=== PATIENT | female | born 1995 | race Caucasian/White ===

== ENCOUNTER 2017-11-23 20:55 | Emergency (ER) | payer BC, MEDICAID ==
--- NOTE | 2017-11-23 21:21 | ED Physician Documentation ---
PD HPI FEMALE - Stated complaint Stated Complaint: FEMALE /POSS PREG - Chief complaint Chief Complaint: Abd Pain - History obtained from History obtained from: Patient - History of Present Illness Timing - onset: Today (this morning) Timing - duration: Days (1) Timing - details: Gradual onset, Still present, Waxing and waning Associated symptoms: Vaginal discharge (white). No: Fever, Vaginal bleeding, Dysuria Contributing factors: (had home test positive. LMP 10/24/17.) , Sexually active. 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 denies: Dysuria, Frequency Skin: denies: Rash, Lesions Neurologic: denies: Generalized weakness, Near syncope PD PAST MEDICAL HISTORY - Past Medical History Cardiovascular: None Respiratory: None Neuro: None Endocrine/Autoimmune: None - Past Surgical History Past Surgical History: No - Present Medications Home Medications: Ambulatory Orders Medication Instructions Recorded Confirmed Cephalexin [Keflex] 500 mg PO Q6H #28 capsule 01/22/15 - Allergies Allergies/Adverse Reactions: Allergies Allergy/AdvReac Type Severity Reaction Status Date / Time No Known Drug Allergies Allergy Verified 11/23/17 21:03 - Social History Does the pt smoke?: No Smoking Status: Never smoker Does the pt drink ETOH?: No Does the pt have substance abuse?: No - Immunizations Immunizations are current?: Yes - POLST Patient has POLST: No PD ED PE NORMAL - Vitals Vital signs reviewed: Yes - General General: Alert and oriented X 3, No acute distress, Well developed/nourished - Cardiac Cardiac: RRR, No murmur - Respiratory Respiratory: Clear bilaterally - Abdomen Abdomen: Normal bowel sounds, Soft, Non distended, No organomegaly, Other (mild tenderness suprapubic area without guarding nor percussion tenderness. Slightly more tender to the right. 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 Vault with some thicker white discharge appearing like yeast. Swabs obtained. No cervicitis. No bleeding. ) - Rectal Rectal: Deferred - Back Back: No CVA TTP - Derm Derm: Normal color - Extremities Extremities: No deformity, No tenderness to palpate - Neuro Neuro: Alert and oriented X 3, No motor deficit, Normal speech Results - Vitals Vitals: Vital Signs - 24 hr 11/23/17 11/23/17 20:57 23:24 Temperature 36.5 C Heart Rate 88 88 Respiratory 16 16 Rate Blood Pressure 130/91 H 128/88 H O2 Saturation 100 100 Oxygen O2 Source Room air - Labs Labs: Microbiology 11/23/17 23:00 Wet Prep - Final Vaginal Laboratory Tests 11/23/17 11/23/17 21:15 22:38 HCG, Quant 360.09 Urine Color LT. YELLOW Urine Clarity CLEAR Urine pH 6.0 Ur Specific [place] 1.020 Urine Protein NEGATIVE Urine Glucose (UA) NEGATIVE Urine Ketones NEGATIVE Urine Occult Blood NEGATIVE Urine Nitrite NEGATIVE Urine Bilirubin NEGATIVE Urine Urobilinogen 0.2 (NORMAL) Ur Leukocyte Esterase NEGATIVE Ur Microscopic Review NOT INDICATED Urine Culture Comments NOT INDICATED Urine HCG, Qual POSITIVE - Rads (name of study) OB U/S Radiology: Prelim report reviewed (intrauterine fluid vs early IUP measuring 4.0 weeks. Right ovarian simple cyst 4.3x3.0x3.9 cm. No free fluid. ) PD MEDICAL DECISION MAKING - ED course Complexity details: reviewed results (will need to check repeat HCG in several days to see if going up or down. Apparent IUP on U/S and no appearance of ectopic. Consider early miscarriage and so would need repeat HCG. Clinically seems like vaginal yeast infection and treated for that. Culture results will be few days. Will need to have repeat HCG to follow if going up or down. ), considered differential, d/w patient - Sepsis Event Vital Signs: Vital Signs - 24 hr 11/23/17 11/23/17 20:57 23:24 Temperature 36.5 C Heart Rate 88 88 Respiratory 16 16 Rate Blood Pressure 130/91 H 128/88 H O2 Saturation 100 100 Oxygen O2 Source Room air Departure - Departure Disposition: 01 Home, Self Care Clinical Impression: Early stage of Pelvic pain affecting Qualifiers: Trimester: first trimester Qualified Code(s): O26.891 - Other specified related conditions, first trimester Condition: Stable Record reviewed to determine appropriate education?: Yes Instructions: ED Miscarriage Poss Follow-Up: [facility] [Provider Group] Comments: The ultrasound report says there appears to be an early in the uterus estimated at 4 weeks gestation. This is too early to see an actual heartbeat. We can tell if the is still doing well by repeating the hCG blood test in several days/next week. Call the gynecology office tomorrow for follow- up appointment and to arrange repeat testing. Tylenol or ibuprofen if needed for pains. Your given an antifungal tablet here as it looks like a possible yeast infection on exam. The vaginal swab culture results will return in several days and would see if we need to add any treatment based on those. Discharge Date/Time: 11/23/17 23:24
[2017-11-23 21:25] LABS: BILIRUBIN,URINE NEGATIVE (NEGATIVE); GLUCOSE, URINE (UA) NEGATIVE (NEGATIVE); KETONES,URINE (UA) NEGATIVE (NEGATIVE); LEUKOCYTE ESTERASE, URINE NEGATIVE (NEGATIVE); NITRITE,URINE NEGATIVE (NEGATIVE); OCCULT BLOOD,URINE NEGATIVE (NEGATIVE); PROTEIN,URINE NEGATIVE (NEGATIVE); UROBILINOGEN,URINE 0.2 (NORMAL) E.U./dL (NORMAL)
[2017-11-23 21:28] LABS: CLARITY,URINE CLEAR (CLEAR); HCG UR QUAL POSITIVE
[2017-11-23] MEDS ORDERED: ACETAMINOPHEN 325 MG TABLET PO STA (21:37)
[2017-11-23] MEDS ORDERED: IBUPROFEN 400 MG TABLET PO STA (21:37)
--- NOTE | 2017-11-23 22:58 | Ultrasound Report ---
Procedure Date: 11/23/2017 Accession Number: [id number] / [id number] Procedure: US - OB First Trimester CPT Code: FULL RESULT: EXAM: FIRST TRIMESTER OBSTETRIC ULTRASOUND (Less than 11 weeks) EXAM DATE: 11/23/2017 10:38 PM. CLINICAL HISTORY: Lower abd pain; early . LMP: 10/24/2017. COMPARISONS: None. TECHNIQUE: Transabdominal and transvaginal ultrasound examination with static image documentation. CLINICAL DATES: EGA 4 weeks 2 days with LYNNE 07/31/2018 based on LMP. ASSESSMENT: Gestational Sac: Small amount of fluid versus early intrauterine gestational sac at the right side of the endometrial cavity.. Mean gestational sac diameter: 3.1 mm = 4 weeks 0 days. Embryo: Not seen. Cardiac activity: Not seen.. Yolk sac: Not seen. Amniotic fluid: Not accurately assessed at this gestational age. Early placenta: Not visible at this gestational age. Other: No perigestational fluid collection demonstrated. MATERNAL STRUCTURES: Uterus: Anteverted. Septate uterus with endometrial thickness of 1.6 cm on the right and 1.7 cm on the left. Cervix: Closed. Right Ovary/Adnexa: Cyst measuring 4.3 x 3.0 x 3.9 cm. The ovary measures 4.7 x 3.6 x 4.4 cm, volume 38 cc. Left Ovary/Adnexa: Unremarkable. The ovary measures 3.3 x 1.6 x 2.3 cm, volume 6.1 cc. Free Fluid: None. Other: None. IMPRESSION: 1. Septate uterus with smaller endometrial fluid collection versus early gestational sac on the right side, measuring 4 weeks 0 days. Recommend correlation with quantitative serum beta hCG level. 2. No yolk sac or embryo seen. 3. Enlarged right ovary measuring 38 cc with dominant cyst measuring 4.3 x 3.0 x 3.9 cm. No torsion seen. RADIA
[2017-11-23] MEDS ORDERED: FLUCONAZOLE 100 MG TABLET PO STA (23:02)
[2017-11-23 23:26] VITALS: BP 128/88
== END 2017-11-23 23:24 | disposition home or self-care (01) ==
LOC: ED 20:55
DX: O26.891 Other specified pregnancy related conditions, first trimester (principal); Z3A.01 Less than 8 weeks gestation of pregnancy
CPT/HCPCS: 36415; 76801; 76817; 81003; 81025; 84702; 87210; 87491; 87591; 99283; A9270; 81001; 87086

== ENCOUNTER 2017-11-29 16:51 | Emergency (ER) | payer BC ==
[2017-11-29 17:30] LABS: BASOPHILS # (AUTO) 0.1 10^3/uL (0.0-0.1); BASOPHILS % (AUTO) 0.5 %; EOSINOPHILS # (AUTO) 0.2 10^3/uL (0.0-0.7); EOSINOPHILS % (AUTO) 1.6 %; HGB - HEMOGLOBIN 12.7 g/dL (12.0-16.0); LYMPHOCYTES # (AUTO) 2.8 10^3/uL (1.5-3.5); LYMPHOCYTES % (AUTO) 22.8 %; MEAN CORPUSCULAR HEMOGLOBIN 31.9 pg (27.0-31.0); MEAN CORPUSCULAR HGB CONC 34.8 g/dL (32.0-36.0); MEAN CORPUSCULAR VOLUME 91.8 fL (81.0-99.0); MEAN PLATELET VOLUME 6.9 fL (7.9-10.8); MONOCYTES # (AUTO) 1.2 10^3/uL (0.0-1.0); NEUTROPHILS # (AUTO) 8.1 10^3/uL (1.5-6.6); NEUTROPHILS % (AUTO) 65.1 %; PLT - PLATELET COUNT 245 10^3/uL (130-450); RED BLOOD COUNT 3.98 10^6/uL (4.20-5.40); RED CELL DISTRIBUTION WIDTH 13.6 % (12.0-15.0); WHITE BLOOD COUNT 12.4 x10^3/uL (4.8-10.8)
[2017-11-29 17:31] LABS: BILIRUBIN,URINE NEGATIVE (NEGATIVE); GLUCOSE, URINE (UA) NEGATIVE (NEGATIVE); KETONES,URINE (UA) NEGATIVE (NEGATIVE); LEUKOCYTE ESTERASE, URINE NEGATIVE (NEGATIVE); NITRITE,URINE NEGATIVE (NEGATIVE); OCCULT BLOOD,URINE NEGATIVE (NEGATIVE); PROTEIN,URINE NEGATIVE (NEGATIVE); UROBILINOGEN,URINE 0.2 (NORMAL) E.U./dL (NORMAL)
[2017-11-29 17:32] LABS: CLARITY,URINE CLEAR (CLEAR)
[2017-11-29 17:44] LABS: ALBUMIN 4.1 g/dL (3.2-5.5); ALBUMIN/GLOBULIN RATIO 1.1 (1.0-2.2); BILIRUBIN,TOTAL 0.6 mg/dL (0.2-1.0); CALCIUM 9.4 mg/dL (8.5-10.3); CREATININE 0.6 mg/dL (0.4-1.0); TOTAL PROTEIN 7.9 g/dL (6.7-8.2)
[2017-11-29] MEDS ORDERED: ACETAMINOPHEN 325 MG TABLET PO STA (18:17)
--- NOTE | 2017-11-29 18:17 | ED Physician Documentation ---
History of Present Illness - Stated complaint Stated Complaint: CRAMP/5 WKS - Chief complaint Chief Complaint: General - History obtained from History obtained from: Patient - History of Present Illness Timing: How many weeks ago (1) Pain level max: 5 Pain level now: 4 Improved by: nothing Worsened by: nothing - Additonal information Additional information: Patient is a 23-year-old female, 1 para 0 who presents to the emergency department with lower abdominal cramping for the past week. Seen here last week for same and appeared to have an early intrauterine on the right side of her uterus. She has a septated uterus. Saw Dr. Simmons yesterday in the office who informed her if she had increased cramping to go back to the emergency department. Patient has no vaginal bleeding. No discharge. Review of Systems Constitutional: denies: Fever, Chills Throat: denies: Sore throat Cardiac: denies: Chest pain / pressure Respiratory: denies: Cough GI: denies: Vomiting Skin: denies: Rash PD PAST MEDICAL HISTORY - Past Medical History Past Medical History: No Cardiovascular: None Respiratory: None Neuro: None Endocrine/Autoimmune: None - Past Surgical History Past Surgical History: Yes General: Appendectomy - Present Medications Home Medications: Ambulatory Orders Medication Instructions Recorded Confirmed Pnv95/Ferrous Fumarate/FA 11/29/17 [ Vitamin Tablet] - Allergies Allergies/Adverse Reactions: Allergies Allergy/AdvReac Type Severity Reaction Status Date / Time No Known Drug Allergies Allergy Verified 11/29/17 17:01 - Social History Does the pt smoke?: No Smoking Status: Never smoker Does the pt drink ETOH?: No Does the pt have substance abuse?: No - Immunizations Immunizations are current?: Yes - POLST Patient has POLST: No PD ED PE NORMAL - Vitals Vital signs reviewed: Yes - General General: Alert and oriented X 3, No acute distress - HEENT HEENT: Moist mucous membranes - Neck Neck: Supple, no meningeal sign - Cardiac Cardiac: RRR - Respiratory Respiratory: No respiratory distress, Clear bilaterally - Abdomen Abdomen: Soft, Non tender, Non distended - Back Back: No CVA TTP, No spinal TTP - Derm Derm: Warm and dry - Extremities Extremities: No edema - Neuro Neuro: Alert and oriented X 3 Results - Vitals Vitals: Oxygen O2 Source Room air - Labs Labs: Laboratory Tests 0611/29/17 11/29/17 17:12 17:21 17:21 WBC 12.4 H RBC 3.98 L Hgb 12.7 Hct 36.5 L MCV 91.8 MCH 31.9 H MCHC 34.8 RDW 13.6 Plt Count 245 MPV 6.9 L Neut # (Auto) 8.1 H Lymph # (Auto) 2.8 Walker # (Auto) 1.2 H Eos # (Auto) 0.2 Baso # (Auto) 0.1 Absolute Nucleated RBC 0.01 Nucleated RBC % 0.1 Sodium 132 L Potassium 3.5 Chloride 103 Carbon Dioxide 20 L Anion Gap 9.0 BUN 9 Creatinine 0.6 Estimated GFR (MDRD) 127 Glucose 85 Calcium 9.4 Total Bilirubin 0.6 AST 25 ALT 18 Alkaline Phosphatase 62 Total Protein 7.9 Albumin 4.1 Globulin 3.8 Albumin/Globulin Ratio 1.1 Lipase 22 HCG, Quant Urine Color YELLOW Urine Clarity CLEAR Urine pH 6.0 Ur Specific [place] 1.025 Urine Protein NEGATIVE Urine Glucose (UA) NEGATIVE Urine Ketones NEGATIVE Urine Occult Blood NEGATIVE Urine Nitrite NEGATIVE Urine Bilirubin NEGATIVE Urine Urobilinogen 0.2 (NORMAL) Ur Leukocyte Esterase NEGATIVE Ur Microscopic Review NOT INDICATED Urine Culture Comments NOT INDICATED 11/29/17 17:21 WBC RBC Hgb Hct MCV MCH MCHC RDW Plt Count MPV Neut # (Auto) Lymph # (Auto) Walker # (Auto) Eos # (Auto) Baso # (Auto) Absolute Nucleated RBC Nucleated RBC % Sodium Potassium Chloride Carbon Dioxide Anion Gap BUN Creatinine Estimated GFR (MDRD) Glucose Calcium Total Bilirubin AST ALT Alkaline Phosphatase Total Protein Albumin Globulin Albumin/Globulin Ratio Lipase HCG, Quant 7798.00 Urine Color Urine Clarity Urine pH Ur Specific [place] Urine Protein Urine Glucose (UA) Urine Ketones Urine Occult Blood Urine Nitrite Urine Bilirubin Urine Urobilinogen Ur Leukocyte Esterase Ur Microscopic Review Urine Culture Comments - Rads (name of study) Pelvic ultrasound Radiology: Prelim report reviewed, EMP read contemporaneously, See rad report ( Single viable intrauterine at EGA 5 weeks 1 day with LYNNE 07/31/2018 based on LMP. Note that the extremely small caliber of the gestational sac of this early makes exact measurements challenging there is been definite interval enlargement of the gestational sac. Interval appearance of a yolk sac. This is also encouraging that this represents a viable . Septated uterus. No ovarian torsion. Large right ovarian cyst. 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 No evidence of ectopic or heterotopic . Appears to have signs consistent with a viable on ultrasound. Discussed the case with Dr. Heck, OB on-call who will follow the patient up in the office. Abdomen remained soft, nontender nondistended on serial exam. Patient counseled regarding signs and symptoms for which I believe and urgent re-evaluation would be necessary. Patient with good understanding of and agreement to plan and is comfortable going home at this time This document was made in part using voice recognition software. While efforts are made to proofread this document, sound alike and grammatical errors may occur. - Sepsis Event Vital Signs: Oxygen O2 Source Room air Departure - Departure Disposition: 01 Home, Self Care Clinical Impression: Pelvic pain affecting Qualifiers: Trimester: first trimester Qualified Code(s): O26.891 - Other specified related conditions, first trimester Condition: Good Instructions: ED Preg Established Normal Sxs Follow-Up: Agnieszka Simmons, DO [Provider Admit Priv/Credential] - Comments: You do appear to have a viable and your uterus tonight. You need to follow-up closely with Dr. Simmons for further evaluation. Return if you worsen. Discharge Date/Time: 11/29/17 20:55
--- NOTE | 2017-11-29 20:11 | Ultrasound Report ---
Procedure Date: 11/29/2017 Accession Number: [id number] / [id number] Procedure: US - OB First Trimester CPT Code: FULL RESULT: EXAM: FIRST TRIMESTER OBSTETRIC ULTRASOUND (Less than 11 weeks) EXAM DATE: 11/29/2017 07:25 PM. CLINICAL HISTORY: Early , lower abdominal pain. Beta-hCG 7798. LMP: 10/24/2017. COMPARISONS: 11/23/2017. TECHNIQUE: Transabdominal and transvaginal ultrasound examination with static image documentation. CLINICAL DATES: EGA 5 weeks 1 day with LYNNE 07/31/2018 based on LMP. ASSESSMENT: Gestational Sac: Single intrauterine, right side. Mean gestational sac diameter: 6.1 mm = 4 weeks 3 days. LYNNE 08/04/2018. Previously, gestational sac diameter 3.1 mm, 4 weeks 0 days. Embryo: Not seen. Cardiac activity: Not seen. Yolk sac: 1.2 mm. Amniotic fluid: Not accurately assessed at this gestational age. Early placenta: Not visible at this gestational age. Other: No perigestational fluid collection demonstrated. MATERNAL STRUCTURES: Uterus: Anteverted. Septated. Cervix: Closed. Right Ovary/Adnexa: Two right ovarian cysts, the largest of which measures 4.1 x 3.5 x 3.4 cm. Normal ovarian blood flow. The ovary measures 5.4 x 3.5 x 4.1 cm, volume 40.5 cc. Left Ovary/Adnexa: 1.8 x 1.1 x 1.2 cm cyst. Normal ovarian blood flow. The ovary measures 3.0 x 1.7 x 2.6 cm, volume 6.9 cc. Free Fluid: Small amount of free fluid. Other: None. IMPRESSION: 1. Single viable intrauterine at EGA 5 weeks 1 day with LYNNE 07/31/2018 based on LMP. Note that the extremely small caliber of the gestational sac of this early makes exact measurements challenging. There has been definite interval enlargement of the gestational sac. 2. Interval appearance of a yolk sac. This is also encouraging that this represents a viable . 3. Septated uterus. 4. No ovarian torsion. Large right ovarian cyst. 5. Small amount of free fluid. RADIA
[2017-11-29 20:46] VITALS: BP 105/63
== END 2017-11-29 20:55 | disposition home or self-care (01) ==
LOC: ED 16:51
DX: O26.891 Other specified pregnancy related conditions, first trimester (principal); Q51.9 Congenital malformation of uterus and cervix, unspecified; N83.201 Unspecified ovarian cyst, right side; Z3A.01 Less than 8 weeks gestation of pregnancy
CPT/HCPCS: 36415; 76801; 76817; 80053; 81003; 83690; 84702; 85025; 99283; 99284; A9270; 81001; 87086

== ENCOUNTER 2017-12-27 08:00 | Outpatient (CLI) | payer BC ==
[2017-12-27 15:39] LABS: MUDS CUTOFF CONCENTRATIONS CUTOFF CONC BELOW:
[2017-12-27 16:02] LABS: AMPHETAMINE SCREEN,URINE NEGATIVE (NEGATIVE); BENZODIAZEPINES SCREEN, URINE NEGATIVE (NEGATIVE); COCAINE SCREEN URINE NEGATIVE (NEGATIVE); METHADONE SCREEN, URINE NEGATIVE (NEGATIVE); METHAMPHETAMINES SCREEN, URINE NEGATIVE (NEGATIVE); OPIATE SCREEN, URINE NEGATIVE (NEGATIVE); OXYCODONE SCREEN, URINE NEGATIVE (NEGATIVE); PROPOXYPHENE SCREEN, URINE NEGATIVE (NEGATIVE); TRICYCLIC ANTIDEPRESSANT,URINE NEGATIVE (NEGATIVE)
== END 2017-12-27 08:01 ==
LOC: LAB.R 08:00
PROVIDERS: ATTEND Obstetrics & Gynecology
DX: Z36.89 Encounter for other specified antenatal screening (principal)
CPT/HCPCS: 80306; 87491; 87591

== ENCOUNTER 2018-01-23 15:49 | Outpatient (CLI) | payer BC ==
[2018-01-23 16:11] LABS: BASOPHILS # (AUTO) 0.1 10^3/uL (0.0-0.1); BASOPHILS % (AUTO) 0.4 %; EOSINOPHILS # (AUTO) 0.2 10^3/uL (0.0-0.7); EOSINOPHILS % (AUTO) 1.7 %; HGB - HEMOGLOBIN 12.2 g/dL (12.0-16.0); LYMPHOCYTES # (AUTO) 1.9 10^3/uL (1.5-3.5); LYMPHOCYTES % (AUTO) 16.2 %; MEAN CORPUSCULAR HEMOGLOBIN 31.4 pg (27.0-31.0); MEAN CORPUSCULAR HGB CONC 35.6 g/dL (32.0-36.0); MEAN CORPUSCULAR VOLUME 88.2 fL (81.0-99.0); MEAN PLATELET VOLUME 6.6 fL (7.9-10.8); MONOCYTES # (AUTO) 1.1 10^3/uL (0.0-1.0); MONOCYTES % (AUTO) 8.9 %; NEUTROPHILS # (AUTO) 8.7 10^3/uL (1.5-6.6); NEUTROPHILS % (AUTO) 72.8 %; PLT - PLATELET COUNT 238 10^3/uL (130-450); RED BLOOD COUNT 3.89 10^6/uL (4.20-5.40); RED CELL DISTRIBUTION WIDTH 13.4 % (12.0-15.0); WHITE BLOOD COUNT 11.9 x10^3/uL (4.8-10.8)
[2018-01-23 17:55] LABS: BILIRUBIN,URINE NEGATIVE (NEGATIVE); GLUCOSE, URINE (UA) NEGATIVE (NEGATIVE); KETONES,URINE (UA) NEGATIVE (NEGATIVE); LEUKOCYTE ESTERASE, URINE NEGATIVE (NEGATIVE); NITRITE,URINE NEGATIVE (NEGATIVE); OCCULT BLOOD,URINE NEGATIVE (NEGATIVE); PROTEIN,URINE NEGATIVE (NEGATIVE); UROBILINOGEN,URINE 0.2 (NORMAL) E.U./dL (NORMAL)
[2018-01-23 18:08] LABS: CLARITY,URINE V (CLEAR)
[2018-01-23 18:09] LABS: BACTERIA,URINE Rare /HPF (None Seen); RBC,URINE 0-5 /HPF (0-5); SQUAMOUS EPITHELIAL CELL,UR RARE Squamous (<= Few)
[2018-01-24 10:02] LABS: HEPATITIS B SURFACE ANTIGEN NON-REACTIVE (NON-REACTIVE); HEPATITIS C ANTIBODY NON-REACTIVE (NON-REACTIVE)
[2018-01-24 14:09] LABS: HIV AG/AB 4TH GEN NON-REACTIVE (NON-REACTIVE)
== END 2018-01-23 15:50 | disposition home or self-care (01) ==
LOC: LAB 15:49
PROVIDERS: ATTEND Obstetrics & Gynecology
DX: Z36.89 Encounter for other specified antenatal screening (principal)
CPT/HCPCS: 36415; 81001; 81599; 84163; 85025; 86592; 86762; 86803; 86850; 86900; 86901; 87340; 87389

== ENCOUNTER 2018-02-21 11:04 | Emergency (ER) | payer MEDICAID ==
[2018-02-21] MEDS ORDERED: ACETAMINOPHEN 500 MG TABLET PO STA (11:57)
--- NOTE | 2018-02-21 11:59 | ED Physician Documentation ---
PD HPI ABD PAIN - Stated complaint Stated Complaint: R SIDE ABD PX-17 WKS - Chief complaint Chief Complaint: General - History obtained from History obtained from: Patient, Family - History of Present Illness Timing - onset: Enter time (0700), Today Timing - duration: Hours Timing - details: Abrupt onset, Still present Pain level max: 9 Pain level now: 6 Quality: Aching, Sharp, Pain Location: RUQ Radiation: Right flank Improved by: Other (nothing) Worsened by: Other (nothing) Associated symptoms: Nausea. No: Fever, Vomiting, Diarrhea, Constipation, Dysuria Similar symptoms before: Has not had sx before Recently seen: Clinic (yesterday) - Additional information Additional information: 22-year-old female who is 17 weeks woke this morning with right flank pain. She describes pain is sharp and without modifying factors. She is not able to do anything that makes this worse or better. She has been able to eat and she does have some slight nausea associated with this. She states the pain was a 9 out of 10 on its initiation it is somewhat better now 6 or 7. She has had does have undulations in the pain as well. She has not noticed any blood in her urine. She has not had these symptoms previously. She was recently seen in the clinic for her . Review of Systems Constitutional: denies: Fever Eyes: denies: Decreased vision Ears: denies: Ear pain Nose: denies: Congestion Throat: denies: Sore throat Cardiac: denies: Chest pain / pressure Respiratory: denies: Dyspnea, Cough GI: reports: Abdominal Pain, Nausea. denies: Vomiting : denies: Dysuria, Frequency Skin: denies: Rash Musculoskeletal: reports: Back pain. denies: Neck pain, Extremity pain Neurologic: denies: Generalized weakness, Focal weakness, Numbness PD PAST MEDICAL HISTORY - Past Medical History Past Medical History: No Cardiovascular: None Respiratory: None Neuro: None Endocrine/Autoimmune: None - Past Surgical History Past Surgical History: Yes General: Appendectomy - Present Medications Home Medications: Ambulatory Orders Medication Instructions Recorded Confirmed Pnv95/Ferrous Fumarate/FA 11/29/17 [ Vitamin Tablet] HYDROcod/ACETAM 5/325 [[place] 5/325] 1 - 2 ea PO Q6H PRN #15 tablet 02/21/18 - Allergies Allergies/Adverse Reactions: Allergies Allergy/AdvReac Type Severity Reaction Status Date / Time No Known Drug Allergies Allergy Verified 02/21/18 11:13 - Social History Does the pt smoke?: Yes Smoking Status: Current every day smoker Does the pt drink ETOH?: No Does the pt have substance abuse?: No - Immunizations Immunizations are current?: Yes - POLST Patient has POLST: No PD ED PE NORMAL - Vitals Vital signs reviewed: Yes (tachy ) - General General: Alert and oriented X 3, No acute distress, Well developed/nourished - HEENT HEENT: Atraumatic, PERRL, EOMI - Neck Neck: Supple, no meningeal sign - Cardiac Cardiac: No murmur, Other (tachy to 110) - Respiratory Respiratory: No respiratory distress, Clear bilaterally - Abdomen Abdomen: Soft, Non tender - Back Back: No CVA TTP, No spinal TTP - Derm Derm: Normal color, Warm and dry, No rash - Extremities Extremities: No deformity, No edema - Neuro Neuro: Alert and oriented X 3, No motor deficit, No sensory deficit, Normal speech Eye Opening: Spontaneous Motor: Obeys Commands Verbal: Oriented GCS Score: 15 - Psych Psych: Normal mood, Normal affect Results - Vitals Vitals: Vital Signs - 24 hr 02/21/18 11:07 Temperature 36.1 C L Heart Rate 124 H Respiratory 18 Rate Blood Pressure 109/61 O2 Saturation 98 Oxygen O2 Source Room air - Labs Labs: Laboratory Tests 02/21/18 12:15 Urine Color DARK YELLOW Urine Clarity CLEAR Urine pH 7.5 Ur Specific [place] 1.020 Urine Protein NEGATIVE Urine Glucose (UA) NEGATIVE Urine Ketones NEGATIVE Urine Occult Blood NEGATIVE Urine Nitrite NEGATIVE Urine Bilirubin NEGATIVE Urine Urobilinogen 0.2 (NORMAL) Ur Leukocyte Esterase NEGATIVE Ur Microscopic Review NOT INDICATED Urine Culture Comments NOT INDICATED Procedures - Bedside sono Bedside sono by EMP: With use of bedside ultrasound the right kidney is imaged it is sonographically nontender and there is evidence of mild hydronephrosis The uterus is imaged and there is a viable 17 week fetus with a heart rate of 156. PD MEDICAL DECISION MAKING - ED course Complexity details: reviewed results, re-evaluated patient, considered differential, d/w patient, d/w family ED course: 17 week 22-year-old female with right flank pain has hydronephrosis on bedside examination with the ultrasound and the kidney is sonographically nontender. There is no evidence of infection on microscopic exam of the urine. She is not tender to exam and I am not suspicious at this time of appendicitis. I discussed with the patient approaches and she is administered Tylenol with some improvement in her pain. CT scanning of the abdomen is not indicated today mostly due to the gravid state of the patient. I have discussed with the patient the expectation that the stone passed within 2 days to a week and we will provide her with some pain medication if it is needed. - Sepsis Event Vital Signs: Vital Signs - 24 hr 02/21/18 11:07 Temperature 36.1 C L Heart Rate 124 H Respiratory 18 Rate Blood Pressure 109/61 O2 Saturation 98 Oxygen O2 Source Room air Departure - Departure Disposition: 01 Home, Self Care Clinical Impression: Ureterolithiasis during in second trimester Condition: Stable Instructions: ED Stone Renal W Colic Follow-Up: Agnieszka Simmons DO [Provider Admit Priv/Credential] - Prescriptions: HYDROcod/ACETAM 5/325 [[place] 5/325] 1 - 2 ea PO Q6H PRN #15 tablet PRN Reason: Pain
[2018-02-21 13:57] LABS: BILIRUBIN,URINE NEGATIVE (NEGATIVE); GLUCOSE, URINE (UA) NEGATIVE (NEGATIVE); KETONES,URINE (UA) NEGATIVE (NEGATIVE); LEUKOCYTE ESTERASE, URINE NEGATIVE (NEGATIVE); NITRITE,URINE NEGATIVE (NEGATIVE); OCCULT BLOOD,URINE NEGATIVE (NEGATIVE); PH,URINE 7.5 PH (5.0-7.5); PROTEIN,URINE NEGATIVE (NEGATIVE); UROBILINOGEN,URINE 0.2 (NORMAL) E.U./dL (NORMAL)
[2018-02-21 14:13] LABS: CLARITY,URINE CLEAR (CLEAR)
[2018-02-21 14:51] VITALS: BP 99/58
== END 2018-02-21 14:51 | disposition home or self-care (01) ==
LOC: ED 11:04
DX: N13.2 Hydronephrosis with renal and ureteral calculous obstruction (principal); O99.89 Other specified diseases and conditions complicating pregnancy, childbirth and the puerperium; F17.200 Nicotine dependence, unspecified, uncomplicated; Z3A.17 17 weeks gestation of pregnancy
CPT/HCPCS: 81003; 99283; A9270; 81001; 87086

== ENCOUNTER 2018-02-27 07:40 | Outpatient (CLI) | payer MEDICAID ==
--- NOTE | 2018-02-27 10:32 | Ultrasound Report ---
Reason: ENCOUNTER FOR SCREENING FOR MALFORMATION Procedure Date: 02/27/2018 Accession Number: [id number] / [id number] Procedure: US - OB Detailed Eval CPT Code: FULL RESULT: EXAM: COMPLETE OBSTETRICAL ULTRASOUND EXAM DATE: 02/27/2018 09:38 AM. CLINICAL HISTORY: anatomic survey. COMPARISON: Ultrasound 11/29/2017. TECHNIQUE: Real-time sonographic evaluation of the fetus performed by the [place] [employer] [place] [employer] group leader. Multiple hvac sales representative static images were saved for review. Additional transvaginal imaging to more accurately evaluate cervical length/placental position/etc. DATING: Established EGA 18 weeks/0 days with LYNNE 07/31/2018 based on LMP of 10/24/2017. EGA 17 weeks/2 days with LYNNE 08/04/2018 based on first ultrasound on 11/29/2017. EGA 18 weeks/0 days with LYNNE 07/31/2018 based on patient's statement. EGA 17 weeks/5 days with LYNNE 08/02/2018 based on the current ultrasound. GENERAL EVALUATION Gore . Cardiac activity: 157 bpm. movement: Visualized. Presentation: Cephalic. Placenta: Anterior position. No evidence for previa. Umbilical cord: 3 vessel cord. Central placental cord origin. Amniotic fluid: Subjectively normal. MVP 12 cm = 50th percentile. BIOMETRY Bi-Parietal Diameter (BPD): 37.3 cm, 17 weeks/3 days Head Circumference (HC): 14.1 cm, 17 weeks/3 days Abdominal Circumference (AC): 12.7 cm, 18 weeks/2 days Femur Length (FL): 25.3 cm, 17 weeks/5 days Estimated Weight: 217 gm, 42nd percentile for 18 weeks. ANATOMY The intracranial structures, profile, face/nose/lips, spine, 4 chamber heart and outflow tracts, stomach, abdominal wall and cord insertion, diaphragm, kidneys, bladder, and extremities were visualized and demonstrate no abnormality. MATERNAL STRUCTURES Uterus: Unremarkable. Cervix: Long and closed. Transabdominal length 3.8 cm. Right ovary/adnexa: Unremarkable. Left ovary/adnexa: Unremarkable. Free fluid: None. IMPRESSION: 1. Gore live intrauterine with gestational age 17 weeks 5 days based on the current ultrasound. 2. Estimated weight is within expected limits for assigned dating. 3. Normal anatomic survey. No anatomic abnormalities are detected at this time. RADIA
== END 2018-02-27 07:41 | disposition home or self-care (01) ==
LOC: DI 07:40
PROVIDERS: ATTEND Obstetrics & Gynecology
DX: Z36.3 Encounter for antenatal screening for malformations (principal); Z3A.17 17 weeks gestation of pregnancy; Z36.89 Encounter for other specified antenatal screening
CPT/HCPCS: 36415; 76811; 81599

== ENCOUNTER 2018-02-27 16:41 | Outpatient (CLI) | payer MEDICAID | END 2018-02-27 16:42 | disposition home or self-care (01) | LOC: LAB 16:41 | PROVIDERS: ATTEND Obstetrics & Gynecology | DX: Z36.89 Encounter for other specified antenatal screening (principal) | CPT/HCPCS: 36415; 81599 ==

== ENCOUNTER 2018-04-27 13:34 | Outpatient (CLI) | payer MEDICAID ==
[2018-04-27 14:21] VITALS: BP 107/58
[2018-04-27 14:24] LABS: BILIRUBIN,URINE NEGATIVE (NEGATIVE); GLUCOSE, URINE (UA) NEGATIVE (NEGATIVE); KETONES,URINE (UA) NEGATIVE (NEGATIVE); LEUKOCYTE ESTERASE, URINE NEGATIVE (NEGATIVE); NITRITE,URINE NEGATIVE (NEGATIVE); OCCULT BLOOD,URINE NEGATIVE (NEGATIVE); PROTEIN,URINE NEGATIVE (NEGATIVE); UROBILINOGEN,URINE 0.2 (NORMAL) E.U./dL (NORMAL)
[2018-04-27 14:37] LABS: AMORPHOUS SEDIMENT,UR Rare /LPF; BACTERIA,URINE None Seen /HPF (None Seen); CLARITY,URINE CLEAR (CLEAR); MUCUS,URINE Few Strands; RBC,URINE 0-5 /HPF (0-5); SQUAMOUS EPITHELIAL CELL,UR RARE Squamous (<= Few)
[2018-04-27 14:45] LABS: BASOPHILS % (AUTO) 0.2 %; EOSINOPHILS # (AUTO) 0.1 10^3/uL (0.0-0.7); HGB - HEMOGLOBIN 9.1 g/dL (12.0-16.0); LYMPHOCYTES # (AUTO) 1.7 10^3/uL (1.5-3.5); LYMPHOCYTES % (AUTO) 14.5 %; MEAN CORPUSCULAR HEMOGLOBIN 32.7 pg (27.0-31.0); MEAN CORPUSCULAR HGB CONC 35.9 g/dL (32.0-36.0); MEAN PLATELET VOLUME 6.4 fL (7.9-10.8); MONOCYTES # (AUTO) 1.1 10^3/uL (0.0-1.0); NEUTROPHILS # (AUTO) 8.9 10^3/uL (1.5-6.6); NEUTROPHILS % (AUTO) 75.3 %; PLT - PLATELET COUNT 239 10^3/uL (130-450); RED BLOOD COUNT 2.78 10^6/uL (4.20-5.40); RED CELL DISTRIBUTION WIDTH 13.1 % (12.0-15.0); WHITE BLOOD COUNT 11.8 x10^3/uL (4.8-10.8)
[2018-04-27 16:17] LABS: RUPTURE OF MEMBRANES PLUS NEGATIVE (NEGATIVE)
--- NOTE | 2018-04-27 16:35 | PROVIDER PROGRESS NOTE ---
Subjective - Prog Note Date Prog Note Date: 04/27/18 Prog Note Time: 15:30 - Subjective Subjective: Diagnosis: Uterine pain after abdominal trauma; Ultrasound consistent with growth restriction; Anemia; Nutritional status uncertain 26-week 3-day gestation; Persistent nausea Cervical discharge, yellow Ms. Hopper is a 22-year-old 2 para 0010 (status post uncomplicated first trimester SAB) who is 70 pound pit bull jumped on her abdomen 72 hours ago. Since that time she notes uterine tenderness and pain at 6/10 intensity. She denies regular contractions but is uncertain about fluid leakage. She had a small leak of clear fluid earlier this morning. She has no fevers chills recent illnesses or UTI symptoms. She states that she lives in a safe environment and physical abuse is not involved. Patient has persistent nausea and poor nutritional intake both in terms of calories, protein and iron. Patient only describes 2 meager meals a day. Patient has been enrolled in the WIC program. She states that she has been taking her vitamins but there is no other iron supplementation. Patient has a history of urolithiasis in . She reports this pain is not similar to her prior kidney stone pain. She has no hematuria. Obstetric labs: Blood type O+ antibody screen negative, baseline hemoglobin 11.9, rubella immune, RPR negative, GC and Chlamydia negative. Integrated screen ordered but results not in [facility]. Patient is uncertain if she made both lab draws. Objective - Vital Signs/Intake & Output Vital Signs: Vital Signs x48h Temp Pulse Resp BP Pulse Ox 04/27/18 14:08 98.2 F 84 16 107/58 L 100 - Lab Results Fish Bones: 04/27/18 14:41 Other Labs: Lab Results x24hrs 04/27/18 04/27/18 04/27/18 Range/Units 15:30 14:41 14:05 WBC 11.8 H (4.8-10.8) x10^3/uL RBC 2.78 L (4.20-5.40) 10^6/uL Hgb 9.1 L (12.0-16.0) g/dL Hct 25.3 L (37.0-47.0) % MCV 91.0 (81.0-99.0) fL MCH 32.7 H (27.0-31.0) pg MCHC 35.9 (32.0-36.0) g/dL RDW 13.1 (12.0-15.0) % Plt Count 239 (130-450) 10^3/uL MPV 6.4 L (7.9-10.8) fL Neut # (Auto) 8.9 H (1.5-6.6) 10^3/uL Lymph # (Auto) 1.7 (1.5-3.5) 10^3/uL [place] # (Auto) 1.1 H (0.0-1.0) 10^3/uL Eos # (Auto) 0.1 (0.0-0.7) 10^3/uL Baso # (Auto) 0.0 (0.0-0.1) 10^3/uL Absolute Nucleated RBC 0.00 x10^3/uL Nucleated RBC % 0.0 /100WBC Urine Color YELLOW Urine Clarity CLEAR (CLEAR) Urine pH 7.0 (5.0-7.5) PH Ur Specific [place] 1.020 (1.002-1.030) Urine Protein NEGATIVE (NEGATIVE) mg/dL Urine Glucose (UA) NEGATIVE (NEGATIVE) mg/dL Urine Ketones NEGATIVE (NEGATIVE) mg/dL Urine Occult Blood NEGATIVE (NEGATIVE) Urine Nitrite NEGATIVE (NEGATIVE) Urine Bilirubin NEGATIVE (NEGATIVE) Urine Urobilinogen 0.2 (NORMAL) (NORMAL) E.U./dL Ur Leukocyte Esterase NEGATIVE (NEGATIVE) Urine RBC 0-5 (0-5) /HPF Urine WBC 0-3 (0-5) /HPF Ur Squamous Epith Cells RARE Squamous (<= Few) Amorphous Sediment Rare /LPF Urine Bacteria None Seen (None Seen) /HPF Urine Mucus Few Strands Urine Culture Comments NOT INDICATED Membranes Rupture NEGATIVE (NEGATIVE) Physical Exam - Physical Exam General: positive: No acute distress, Alert, Other HEENT: positive: Atraumatic, Moist mucous membranes Neck: positive: Supple w/out meningeal sx Abdomen: positive: Normal Bowel sounds, Bruising (Abrasion at the base of the umbilicus, Not thought to be a traumatic injury.) Female : positive: Normal external, Enlarged uterus (Uterus is appropriate for 26-week size approximately 24 cm. Normal resting tone. No contractions but mild lower segment tenderness. External heart monitor reactive for 26 weeks; baseline 130s moderate variability several excels meeting criteria) Back: positive: Normal (No flank tenderness) Extremities: positive: Normal ROM, No pedal edema Skin: positive: Warm and dry Neurologic: positive: Alert and Oriented X 3, Normal Sensation, Normal Speech Free text exam: Patient appears malnourished and very thin. Ultrasound consistent with growth restriction. Established EGA is 26 weeks 3 days by prior ultrasound and today composite EGA is 25 weeks 1 day. Today's ultrasound E FW 796 g or 9th percentile. Head circumference is greater than abdominal circumference 23.1/21.2. RICHMOND = 15.6. Placenta appears to be normal without evidence of abruption. Breech presentation Assessment/Plan - Assessment/Plan Assessment: Ms Hopper is a at risk with evidence of growth restriction probably secondary to malnutrition. Over the course of this she has lost 6 pounds (pre- weight 119 pounds, current weight 113 pounds) growth will require close monitoring with serial ultrasounds. With growth concerns, we must verify the integrated screen results if indeed they were performed. There is no evidence of placental abruption leakage of fluid or increased labor at this time. SROM and fibronectin negative. GC and Chl amydia culture pending. She was warned to avoid abdominal trauma. Warning sign and callback instructions reviewed for labor. Plan: 1. Repeat ultrasound in 2 weeks to confirm continued growth and then serial ultrasounds every 3-4 weeks thereafter. 2. Patient to complete food diary and will be sent to nutrition for counseling. 3. Ferric sulfate 325 twice a day given to supplement vitamins due to anemia. 4. Recommend social work evaluation during 1 of her outpatient ultrasound visits. 5. Await GC/Chlamydia results 6. Patient urged to keep her next OB appointment on 16 May.
--- NOTE | 2018-04-27 17:41 | Ultrasound Report ---
Reason: abd trauma-RICHMOND, EFW, chk plac for poss abruption Procedure Date: 04/27/2018 Accession Number: [id number] / [id number] Procedure: US - OB F/U or Repeat CPT Code: FULL RESULT: EXAM: COMPLETE OBSTETRICAL ULTRASOUND EXAM DATE: 04/27/2018 04:59 PM. CLINICAL HISTORY: . Abdominal trauma 3 days ago. Unsure of LMP. Clinical age is 26 weeks 3 days with previously established EDC of 07/31/2018 COMPARISON: 02/27/2018. TECHNIQUE: Real-time sonographic evaluation of the fetus performed by the supervisor inventory merchandising. Multiple pest control service representative static images were saved for review. DATING: Established EGA 26 weeks 3 days with LYNNE 07/31/2018 based on reported clinical date. EGA 25 weeks 1 day with LYNNE 08/09/2018 based on the current ultrasound. GENERAL EVALUATION Gore . Cardiac activity: 169 bpm. movement: Visualized. Presentation: Breech Placenta: Anterior position. Amniotic fluid: RICHMOND equals 15.6 cm. MVP 6.4 cm. BIOMETRY Bi-Parietal Diameter (BPD): 6.0 cm, 24 weeks 4 days Head Circumference (HC): 23.1 cm, 25 weeks 1 day Abdominal Circumference (AC): 21.2 cm, 25 weeks 5 days Femur Length (FL): 4.5 cm, 25 weeks 0 days Estimated Weight: 796 g, ninth percentile for age. Cervix appears closed and measures 3.1 cm in length. IMPRESSION: 1. Based on today's measurements, estimated weight 796 g which is the 9th percentile for age, using physician stated age of 26 weeks 3 days. 2. Normal amniotic fluid volume. No evidence of placental abruption. RADIA
== END 2018-04-27 18:30 | disposition home or self-care (01) ==
LOC: WFO 13:34 → FBP 13:37 → WFO 18:30
PROVIDERS: ATTEND Obstetrics & Gynecology
DX: O99.89 Other specified diseases and conditions complicating pregnancy, childbirth and the puerperium (principal); N94.89 Other specified conditions associated with female genital organs and menstrual cycle; W54.1XXA Struck by dog, initial encounter; Z3A.26 26 weeks gestation of pregnancy; O36.5920 Maternal care for other known or suspected poor fetal growth, second trimester, not applicable or unspecified; O25.12 Malnutrition in pregnancy, second trimester; O99.012 Anemia complicating pregnancy, second trimester; D64.9 Anemia, unspecified; R11.0 Nausea; Z87.442 Personal history of urinary calculi; Z79.899 Other long term (current) drug therapy
CPT/HCPCS: 76816; 81001; 82731; 84112; 85025; 87086; 87491; 87591; 99213

== ENCOUNTER 2018-05-10 00:14 | Observation (INO) | payer BC, MEDICAID ==
[2018-05-10] MEDS ORDERED: SODIUM CHLORIDE FLUSH 0.9% 10 ML SYRINGE ONE (01:13)
[2018-05-10] MEDS ORDERED: LACTATED RINGERS 1,000 ML IV ONE ×2 (01:27→01:33)
[2018-05-10 01:38] LABS: RUPTURE OF MEMBRANES PLUS NEGATIVE (NEGATIVE)
[2018-05-10 01:47] LABS: BILIRUBIN,URINE NEGATIVE (NEGATIVE); GLUCOSE, URINE (UA) NEGATIVE (NEGATIVE); KETONES,URINE (UA) NEGATIVE (NEGATIVE); LEUKOCYTE ESTERASE, URINE NEGATIVE (NEGATIVE); NITRITE,URINE NEGATIVE (NEGATIVE); OCCULT BLOOD,URINE NEGATIVE (NEGATIVE); PROTEIN,URINE NEGATIVE (NEGATIVE); UROBILINOGEN,URINE 0.2 (NORMAL) E.U./dL (NORMAL)
[2018-05-10 01:48] LABS: CLARITY,URINE CLEAR (CLEAR)
[2018-05-10] MEDS ORDERED: NIFEdipine 10 MG CAPSULE PO ONE (01:48)
[2018-05-10] MEDS ORDERED: ZOLPIDEM 5 MG TABLET PO PRN (01:58)
[2018-05-10] MEDS ORDERED: SODIUM CHLORIDE FLUSH 0.9% 10 ML SYRINGE IVP PRN (01:58)
[2018-05-10] MEDS ORDERED: ONDANSETRON 4 MG/2 ML VIAL IVP PRN (01:58)
--- NOTE | 2018-05-10 02:23 | PROVIDER PROGRESS NOTE ---
Subjective - Prog Note Date Prog Note Date: 05/10/18 Prog Note Time: 02:15 - Subjective Subjective: HPI Juan Hopper is a 22-year-old 2 para 0010 (status post uncomplicated first trimester SAB) who reports contractions beginning at 6 10 in the morning on Monday. They built steadily through the day until they became painful and alarming at 10 PM. She reports physiologic discharge but was uncertain about ruptured membranes. She believes the current contractions are stronger than her last visit on 27 April. She has no fevers chills recent illness or UTI symptoms. She has mild malaise and nausea. Her boyfriend comes accompanying her today. Patient is been previously diagnosed as nutritionally at risk and possible growth restriction. She is experienced a 7 pound weight loss since and fundal height is lagging. On 1122 estimated weight on ultrasound was 796 g per 9th percentile. The head circumference is greater than abdominal circumference 23.1/21.2. Patient states she is currently taking the iron supplement prescribed in April. Patient has a history of urolithiasis. She does not report urolithiasis pain at the current time nor does she have hematuria. Basic obstetrical labs blood type O+, antibody screen negative; baseline hemoglobin 11.9; rubella immune; RPR negative; GC and Chlamydia both initial and last visit were negative; PMH / PSH Juan denies chronic disease history or surgical history. She reports no digestive issues other than the nausea accompanying . FH Patient is uncertain about her family history but denies knowledge of congenital anomalies or genetic diseases. ALEXSANDER Martinez is a single mom who is living with her boyfriend/significant other. Until 1 week ago she lived in her boyfriend's father's home. She found the environment disruptive and had not fixed meals at home. She is moved in with her mother in [place] and finds the environment more stable. She continues to smoke 10 cigarettes a day but denies drugs and alcohol. 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 Due to the nausea in she has not been able to work. She notes financial stressors but is getting by with her boyfriend's income and help from her mother. ROS Constitutional: Patient reports 9 pound weight lasts since beginning of HEENT: Negative Lungs: Negative Cardiovascular: Negative GI: Nausea as noted above Musculoskeletal: Negative Neurologic: Occasional headache but no aura, weakness or sensory disturbance Skin: Negative Objective - Vital Signs/Intake & Output Vital Signs: Vital Signs x48h Temp Pulse BP Pulse Ox 05/10/18 00:39 98.2 F 05/10/18 00:37 94 114/66 97 - Lab Results Fish Bones: 05/10/18 02:25 05/10/18 02:25 Other Labs: Lab Results x24hrs 05/10/18 05/10/18 05/10/18 Range/Units 01:05 01:05 01:05 Urine Color YELLOW Urine Clarity CLEAR (CLEAR) Urine pH 7.0 (5.0-7.5) PH Ur Specific [place] 1.010 (1.002-1.030) Urine Protein NEGATIVE (NEGATIVE) mg/dL Urine Glucose (UA) NEGATIVE (NEGATIVE) mg/dL Urine Ketones NEGATIVE (NEGATIVE) mg/dL Urine Occult Blood NEGATIVE (NEGATIVE) Urine Nitrite NEGATIVE (NEGATIVE) Urine Bilirubin NEGATIVE (NEGATIVE) Urine Urobilinogen 0.2 (NORMAL) (NORMAL) E.U./dL Ur Leukocyte Esterase NEGATIVE (NEGATIVE) Ur Microscopic Review NOT INDICATED Urine Culture Comments NOT INDICATED Membranes Rupture NEGATIVE (NEGATIVE) Fibronectin NEGATIVE (NEGATIVE) Physical Exam - Physical Exam General: positive: Anxious, Alert, Other (Pale) HEENT: positive: Atraumatic, Moist mucous membranes Neck: positive: Supple w/out meningeal sx Cardiac: positive: Regular Rate, Regular Rhythm, Murmur Present Resipratory: positive: Clear to ausultation mukund (Faint wheeze heard on forced exhalation) Abdomen: positive: Normal Bowel sounds (Mild bladder discomfort on suprapubic pressure; no CVA tenderness or devika abdominal tenderness) Female : positive: Normal external, Dilated cervix (Cervix 1 cm 20% effaced -1 station mid position firm consistency), Enlarged uterus (Fundal height seems sma ll for 28 weeks. Normal resting tone. Mild to occasional moderate uterine contractions), Other (External monitor shows evidence of contractions every 3-4 minutes; baseline 130s 135; moderate variability; reactive; category 1) Back: positive: Normal ROM Extremities: positive: Normal ROM, No pedal edema Skin: positive: Warm and dry, Pale Neurologic: positive: Alert and Oriented X 3, Normal motor/no weakness, Normal reflexes (Reflexes equal +3, slightly brisk), Normal Sensation, Normal Speech PSYCH: positive: Anxious Assessment/Plan - Assessment/Plan Assessment: 1. labor contractions. There are subtle signs of cervical change including effacement and descent and she will station compared to my last exam in April. CBC, urinalysis, ROM plus and fibronectin pending. Will ob tain ultrasound to include cervical length. 2. Patient is nutritionally at risk with poor weight gain and in fact weight loss during this . Her last CBC in April had a hemoglobin of 9.1. Repeat CBC is pending. Will obtain photographic artist consult. Patient states that she is enrolled in [employer] but does not eat at home very often. 3. Due to nutritional concerns repeat ultrasound to document growth is ordered. Living situation may impact her ability to access and prepare nutritious meals. 4. Uncertain of patient's social situation and will take the opportunity for social services counselor to evaluate. Also hope to enroll patient in the [facility] nurses visiting program. Plan: 1. Tocolysed with fluid balance of 1000 followed by a rate of 125 an hour. Add nifedipine 20 mg now. Possible terbutaline later 2. Due to subtle cervical changes will give betamethasone. 3. Check CBC and CMP for anemia and nutritional status with serum protein. Ultrasound assessment of growth and cervical length 4. nutritional services cook evaluation 5. Referral to [facility] visiting nurse program 6. If contractions cannot be slowed she will become a candidate for transfer to tertiary facility.
[2018-05-10 02:35] LABS: BASOPHILS # (AUTO) 0.1 10^3/uL (0.0-0.1); BASOPHILS % (AUTO) 0.3 %; EOSINOPHILS # (AUTO) 0.1 10^3/uL (0.0-0.7); EOSINOPHILS % (AUTO) 0.4 %; HGB - HEMOGLOBIN 8.9 g/dL (12.0-16.0); LYMPHOCYTES # (AUTO) 1.1 10^3/uL (1.5-3.5); LYMPHOCYTES % (AUTO) 5.9 %; MEAN CORPUSCULAR HEMOGLOBIN 32.5 pg (27.0-31.0); MEAN CORPUSCULAR HGB CONC 35.3 g/dL (32.0-36.0); MEAN CORPUSCULAR VOLUME 92.1 fL (81.0-99.0); MEAN PLATELET VOLUME 6.7 fL (7.9-10.8); MONOCYTES # (AUTO) 1.4 10^3/uL (0.0-1.0); MONOCYTES % (AUTO) 7.4 %; NEUTROPHILS # (AUTO) 16.8 10^3/uL (1.5-6.6); PLT - PLATELET COUNT 236 10^3/uL (130-450); RED BLOOD COUNT 2.74 10^6/uL (4.20-5.40); RED CELL DISTRIBUTION WIDTH 12.9 % (12.0-15.0); WHITE BLOOD COUNT 19.5 x10^3/uL (4.8-10.8)
[2018-05-10] MEDS ORDERED: BETAMETHASONE 30 MG/5 ML VIAL IM ONE (02:38)
[2018-05-10 02:42] LABS: ALBUMIN 2.9 g/dL (3.2-5.5); ALBUMIN/GLOBULIN RATIO 0.9 (1.0-2.2); BILIRUBIN,TOTAL 0.2 mg/dL (0.2-1.0); CALCIUM 8.4 mg/dL (8.5-10.3); CREATININE 0.5 mg/dL (0.4-1.0); TOTAL PROTEIN 6.2 g/dL (6.7-8.2)
[2018-05-10] MEDS ORDERED: TERBUTALINE 1 MG/ML VIAL SUBQ ONE ×2 (02:46→02:49)
[2018-05-10] MEDS: LACTATED RINGERS 1,000 ML IV SCH ×2 (02:55→10:47)
[2018-05-10 03:30] LABS: MUDS CUTOFF CONCENTRATIONS CUTOFF CONC BELOW:
[2018-05-10 03:58] LABS: AMPHETAMINE SCREEN,URINE NEGATIVE (NEGATIVE); BENZODIAZEPINES SCREEN, URINE NEGATIVE (NEGATIVE); COCAINE SCREEN URINE NEGATIVE (NEGATIVE); METHADONE SCREEN, URINE NEGATIVE (NEGATIVE); METHAMPHETAMINES SCREEN, URINE NEGATIVE (NEGATIVE); OPIATE SCREEN, URINE NEGATIVE (NEGATIVE); OXYCODONE SCREEN, URINE NEGATIVE (NEGATIVE); PROPOXYPHENE SCREEN, URINE NEGATIVE (NEGATIVE); TRICYCLIC ANTIDEPRESSANT,URINE NEGATIVE (NEGATIVE)
--- NOTE | 2018-05-10 04:34 | Ultrasound Report ---
Reason: Possible growth restriction, contractions Procedure Date: 05/10/2018 Accession Number: [id number] / [id number] Procedure: US - OB F/U or Repeat CPT Code: FULL RESULT: EXAM: FOLLOW-UP OBSTETRICAL ULTRASOUND EXAM DATE: 05/10/2018 12:00 AM. CLINICAL HISTORY: Possible growth restriction, contractions. COMPARISON: 04/27/2018. TECHNIQUE: Real-time sonographic evaluation of the fetus performed by the ocean freight agent. Additional translabial imaging to more accurately evaluate cervical length/placental position/etc. Multiple service representative static images were saved for review. DATING: Established EGA 28 weeks 2 days with LYNNE 07/31/2018 based on established dates. EGA 27 weeks 0 days with LYNNE 08/09/2018 based on the prior ultrasound of 04/27/2018. EGA 27 weeks 3 days with LYNNE 08/06/2018 based on the current ultrasound. GENERAL EVALUATION Gore . Cardiac activity: 139 bpm. movement: Visualized. Presentation: Cephalic. Placenta: Anterior position. Amniotic fluid: Normal. RICHMOND 15.7 cm. MVP 5.1 cm. BIOMETRY Bi-Parietal Diameter (BPD): 6.9 cm, 27 weeks 6 days Head Circumference (HC): 25.6 cm, 27 weeks 6 days Abdominal Circumference (AC): 22.5 cm, 27 weeks 0 days Femur Length (FL): 5.0 cm, 27 weeks 0 days Estimated Weight: 1023 g, 8th percentile for 28 weeks 2 days. MATERNAL STRUCTURES Cervix: 3.6 cm on translabial images. IMPRESSION: 1. Gore live intrauterine with gestational age 28 weeks 2 days based on established dates. 2. Estimated weight is low normal range for assigned dating. 3. Normal interval growth compared to 04/27/2018. RADIA
[2018-05-10] MEDS: ACETAMINOPHEN 325 MG TABLET PO PRN ×2 (06:27→10:46)
[2018-05-10] MEDS ORDERED: POLYETHYLENE GLYCOL 3350 17 GM PACKET PO SCH (09:00)
[2018-05-10] MEDS: SODIUM CHLORIDE FLUSH 0.9% 10 ML SYRINGE IVP SCH ×2 (09:00→16:53)
[2018-05-10] MEDS: FERROUS SULFATE 325 MG TABLET PO SCH (09:14)
--- NOTE | 2018-05-10 10:44 | PROVIDER PROGRESS NOTE ---
Subjective - Prog Note Date Prog Note Date: 05/10/18 Prog Note Time: 10:30 - Subjective Subjective: Had a detailed discussion with Juan concerning her ultrasound results indicating deepening growth restriction. The growth restriction is probably nutritional as is her anemia. Her hemoglobin is actually descended despite oral iron supplementation. CMP demonstrates a hypoproteinemia as well. She states she is taking to groomie bairs a day. She denies alcohol use and her toxicology screen is negative. She is unaware of any congenital anomalies or genetic disease history in her family but is not certain. Patient's living situation recently changed and she feels better able to prepare her own meals. Discussed the need for nutritional guidance including meal planning with the patient. She should begin a 3-day food diary and follow-up even after this hospitalization with insole taper. Overall impression during this 25 minute motivational interview that she is engaged and wants to optimize her outcome. Nursing will continue to educate and culture during the day. Objective - Vital Signs/Intake & Output Vital Signs: Vital Signs x48h Temp Pulse Resp BP BP Pulse Ox 05/10/18 09:00 98.2 F 103 H 18 104/54 L 99 05/10/18 04:00 99.0 F 115 H 16 105/44 L 99 Intake & Output: Intake & Output 05/07/18 05/08/18 05/09/18 05/10/18 23:59 23:59 23:59 23:59 Output Total 525 Balance -525 - Lab Results Fish Bones: 05/10/18 02:25 05/10/18 02:25 Other Labs: Lab Results x24hrs 05/10/18 05/10/18 05/10/18 Range/Units 02:25 02:25 02:15 WBC 19.5 H (4.8-10.8) x10^3/uL RBC 2.74 L (4.20-5.40) 10^6/uL Hgb 8.9 L (12.0-16.0) g/dL Hct 25.3 L (37.0-47.0) % MCV 92.1 (81.0-99.0) fL MCH 32.5 H (27.0-31.0) pg MCHC 35.3 (32.0-36.0) g/dL RDW 12.9 (12.0-15.0) % Plt Count 236 (130-450) 10^3/uL MPV 6.7 L (7.9-10.8) fL Neut # (Auto) 16.8 H (1.5-6.6) 10^3/uL Lymph # (Auto) 1.1 L (1.5-3.5) 10^3/uL [place] # (Auto) 1.4 H (0.0-1.0) 10^3/uL Eos # (Auto) 0.1 (0.0-0.7) 10^3/uL Baso # (Auto) 0.1 (0.0-0.1) 10^3/uL Absolute Nucleated RBC 0.00 x10^3/uL Nucleated RBC % 0.0 /100WBC Sodium 134 L (135-145) mmol/L Potassium 3.3 L (3.5-5.0) mmol/L Chloride 105 (101-111) mmol/L Carbon Dioxide 21 (21-32) mmol/L Anion Gap 8.0 (6-13) BUN 6 (6-20) mg/dL Creatinine 0.5 (0.4-1.0) mg/dL Estimated GFR (MDRD) 157 (>89) Glucose 96 (70-100) mg/dL Calcium 8.4 L (8.5-10.3) mg/dL Total Bilirubin 0.2 (0.2-1.0) mg/dL AST 20 (10-42) IU/L ALT 20 (10-60) IU/L Alkaline Phosphatase 90 (42-121) IU/L Total Protein 6.2 L (6.7-8.2) g/dL Albumin 2.9 L (3.2-5.5) g/dL Globulin 3.3 (2.1-4.2) g/dL Albumin/Globulin Ratio 0.9 L (1.0-2.2) Urine Color Urine Clarity (CLEAR) Urine pH (5.0-7.5) PH Ur Specific [place] (1.002-1.030) Urine Protein (NEGATIVE) mg/dL Urine Glucose (UA) (NEGATIVE) mg/dL Urine Ketones (NEGATIVE) mg/dL Urine Occult Blood (NEGATIVE) Urine Nitrite (NEGATIVE) Urine Bilirubin (NEGATIVE) Urine Urobilinogen (NORMAL) E.U./dL Ur Leukocyte Esterase (NEGATIVE) Ur Microscopic Review Urine Culture Comments Membranes Rupture (NEGATIVE) Urine Opiates Screen NEGATIVE (NEGATIVE) Ur Oxycodone Screen NEGATIVE (NEGATIVE) Urine Methadone Screen NEGATIVE (NEGATIVE) Ur Propoxyphene Screen NEGATIVE (NEGATIVE) Ur Barbiturates Screen NEGATIVE (NEGATIVE) Ur Tricyclics Screen NEGATIVE (NEGATIVE) Ur Phencyclidine Scrn NEGATIVE (NEGATIVE) Ur Amphetamine Screen NEGATIVE (NEGATIVE) U Methamphetamines Scrn NEGATIVE (NEGATIVE) U Benzodiazepines Scrn NEGATIVE (NEGATIVE) Urine Cocaine Screen NEGATIVE (NEGATIVE) U Cannabinoids Screen NEGATIVE (NEGATIVE) Fibronectin (NEGATIVE) 05/10/18 05/10/18 05/10/18 Range/Units 01:05 01:05 01:05 WBC (4.8-10.8) x10^3/uL RBC (4.20-5.40) 10^6/uL Hgb (12.0-16.0) g/dL Hct (37.0-47.0) % MCV (81.0-99.0) fL MCH (27.0-31.0) pg MCHC (32.0-36.0) g/dL RDW (12.0-15.0) % Plt Count (130-450) 10^3/uL MPV (7.9-10.8) fL Neut # (Auto) (1.5-6.6) 10^3/uL Lymph # (Auto) (1.5-3.5) 10^3/uL [place] # (Auto) (0.0-1.0) 10^3/uL Eos # (Auto) (0.0-0.7) 10^3/uL Baso # (Auto) (0.0-0.1) 10^3/uL Absolute Nucleated RBC x10^3/uL Nucleated RBC % /100WBC Sodium (135-145) mmol/L Potassium (3.5-5.0) mmol/L Chloride (101-111) mmol/L Carbon Dioxide (21-32) mmol/L Anion Gap (6-13) BUN (6-20) mg/dL Creatinine (0.4-1.0) mg/dL Estimated GFR (MDRD) (>89) Glucose (70-100) mg/dL Calcium (8.5-10.3) mg/dL Total Bilirubin (0.2-1.0) mg/dL AST (10-42) IU/L ALT (10-60) IU/L Alkaline Phosphatase (42-121) IU/L Total Protein (6.7-8.2) g/dL Albumin (3.2-5.5) g/dL Globulin (2.1-4.2) g/dL Albumin/Globulin Ratio (1.0-2.2) Urine Color YELLOW Urine Clarity CLEAR (CLEAR) Urine pH 7.0 (5.0-7.5) PH Ur Specific [place] 1.010 (1.002-1.030) Urine Protein NEGATIVE (NEGATIVE) mg/dL Urine Glucose (UA) NEGATIVE (NEGATIVE) mg/dL Urine Ketones NEGATIVE (NEGATIVE) mg/dL Urine Occult Blood NEGATIVE (NEGATIVE) Urine Nitrite NEGATIVE (NEGATIVE) Urine Bilirubin NEGATIVE (NEGATIVE) Urine Urobilinogen 0.2 (NORMAL) (NORMAL) E.U./dL Ur Leukocyte Esterase NEGATIVE (NEGATIVE) Ur Microscopic Review NOT INDICATED Urine Culture Comments NOT INDICATED Membranes Rupture NEGATIVE (NEGATIVE) Urine Opiates Screen (NEGATIVE) Ur Oxycodone Screen (NEGATIVE) Urine Methadone Screen (NEGATIVE) Ur Propoxyphene Screen (NEGATIVE) Ur Barbiturates Screen (NEGATIVE) Ur Tricyclics Screen (NEGATIVE) Ur Phencyclidine Scrn (NEGATIVE) Ur Amphetamine Screen (NEGATIVE) U Methamphetamines Scrn (NEGATIVE) U Benzodiazepines Scrn (NEGATIVE) Urine Cocaine Screen (NEGATIVE) U Cannabinoids Screen (NEGATIVE) Fibronectin NEGATIVE (NEGATIVE) Physical Exam - Physical Exam General: positive: No acute distress, Other (Obviously underweight and pale) HEENT: positive: Moist mucous membranes Neck: positive: Supple w/out meningeal sx Abdomen: positive: Other (No tenderness noted Ultrasound result weight 1023 g, 8th percentile; RICHMOND 5.7; HC/AC reversed) Female : positive: Enlarged uterus (Uterus is lagging fundal height; currently nontender normal resting tone without contractions External monitor monitor shows no contractions with stable heart tones 135 140 with beat to beat variability noted no decelerations category 1) Extremities: positive: No pedal edema Skin: positive: Warm and dry Neurologic: positive: Alert and Oriented X 3 (Grossly neurologically intact) PSYCH: positive: Tearful (Patient is tearful during the discussion obviously worried about evolving anemia, malnutrition, and growth restriction.) Assessment/Plan - Assessment/Plan Assessment: growth restriction next Ultrasound demonstrates a lack of growth and low percentile EFW including abnormal HC/AC ratio. We will begin treating her formally as a growth retardation. Factors are nutritional and smoking. Additionally recommend genetic testing. After initial steps are taken here at would be [facility] would be general we will refer to maternal- medicine for detailed ultrasound study and further recommendations. Maternal anemia and malnutrition Intensive nutritional intervention is needed with hands on sessions with dietary. Will do IV iron infusion today since oral therapy is not working. Social intervention Patient is motivated to optimize outcome and we will afford her every advantage we have. This includes coaching and [facility] nurse in home visits. Plan: 1. IV iron transfusion 2. Software Client Architect intervention including Ensure milkshakes and calorie/protein boosting measures 3. Genetic screening in the outpatient clinic for aneuploidy 4. [place] in home health visits 5. Office visit early next week
[2018-05-10] MEDS ORDERED: IRON SUCROSE 200 MG in SODIUM CHLORIDE 0.9% 100ML 100 ML IV ONE (11:00)
[2018-05-10] MEDS: NICOTINE 14 MG PATCH TOP SCH (14:59)
[2018-05-10] MEDS ORDERED: CALCIUM CARBONATE CHEW 500 MG TABLET PO PRN (15:04)
--- NOTE | 2018-05-10 21:54 | Discharge Plan ---
Discharge Plan Disposition: 01 Home, Self Care Condition: Good Diet: Regular (Iron supplementation, high protein high iron diet) Activity Restrictions: Activity as Tolerated Shower Restrictions: No Driving Restrictions: No No Smoking: If you smoke, Please STOP! Call for help. Follow-up with: Agnieszka Simmons DO [Primary Care Provider] - Bean Heck MD [Provider Admit Priv/Credential] -
--- NOTE | 2018-05-11 06:34 | DISCHARGE SUMMARY ---
Physician: Bean Heck MD DATE OF ADMISSION: 05/10/2018 DATE OF DISCHARGE: 05/10/2018 DIAGNOSES 1. labor at 28 weeks, successfully tocolyzed. 2. Severe anemia. 3. Nutritional compromise, poor weight gain in . 4. growth restriction. 5. Maternal smoker. 6. Status post one course of betamethasone. 7. Status post ferric gluconate intravenous infusion. HISTORY: Patient is a 22-year-old , 2, para 0-0-1-0 who reported contractions beginning at 10 in the morning on Monday. They steadily progressed and she presented in labor and delivery at 10 o'clock. Contractions were confirmed as well as cervical change from her baseline exam. Current exam is 1 cm, 20% effaced, 0 station. The patient also has a history of urolithiasis, but this is quiescent. She is known to be severely anemic and also a low percentile EFW with head circumference significantly greater than abdominal. Reference my typewritten H and P. HOSPITAL COURSE: The patient presented with labor contractions that, given the change in cervical exam, warranted tocolysis. Initially, she was given fluid bolus of 1000, then nifedipine 20 mg oral. This slowed, but did not adequately remedy the contractions. She was given subcutaneous terbutaline 0.25, which effectively dampened out her contractions. On admission, fibronectin was negative as was ROM Plus. Her hemoglobin was 8.9, slightly less than the values obtained on 04/27/2018. Ultrasound revealed a significantly limited fetus at the eighth percentile. percentiles had not moved up from the initial evaluation. RICHMOND is normal. However, once again, the head circumference was significantly greater than abdomen. The patient was known to be nutritionally at risk and [place] referral made. She has recently moved from her boyfriend's father's home to her mother. Social service consult was made. Overall, even though she is unemployed, her housing situation is now stabilized and she does have support through her fiance and family. She continues to smoke cigarettes. A referral was made to the [facility] visiting nurse program. Visiting nurse made an evaluation on hospital day number two. The patient began and completed betamethasone 12 mg IM q.24h. two injections total. Nutrition services were also called. Education handouts were provided. By the morning of hospital day number two, the patient felt well enough and understood the importance of adequate calorie and protein consumption. We will arrange continuing visits by the [facility] nurse. She is encouraged to use protein powder fortified milkshakes. On the afternoon of hospital day number one, she received IV iron sucrose 200 mg. This was well tolerated. The patient was given instructions on callback signs of labor. She is going to investigate smoking cessation classes. She agreed to a Nicoderm patch 14 mg dose. This was well tolerated. She was cautioned not to smoke while on the patch. She is also encouraged to try to taper her cigarette use. DISCHARGE MEDICATIONS 1. Gummy Bear prenatals 3 a day. 2. Ferrous sulfate 325 twice daily. TD: 05/10/2018 22:01 SHIVAM
[2018-05-11 08:27] LABS: MEAN CORPUSCULAR HEMOGLOBIN 31.9 pg (27.0-31.0); MEAN CORPUSCULAR HGB CONC 34.4 g/dL (32.0-36.0); MEAN CORPUSCULAR VOLUME 92.7 fL (81.0-99.0); MEAN PLATELET VOLUME 6.7 fL (7.9-10.8); RED BLOOD COUNT 2.5 10^6/uL (4.20-5.40); RED CELL DISTRIBUTION WIDTH 13.1 % (12.0-15.0); WHITE BLOOD COUNT 17.5 x10^3/uL (4.8-10.8)
[2018-05-11 08:51] VITALS: BP 128/62
[2018-05-11] MEDS: ACETAMINOPHEN 325 MG TABLET PO PRN (08:52)
[2018-05-11] MEDS: FERROUS SULFATE 325 MG TABLET PO SCH (08:52)
[2018-05-11] MEDS ORDERED: BETAMETHASONE 30 MG/5 ML VIAL IM ONE (11:57)
[2018-05-11] MEDS: NICOTINE 14 MG PATCH TOP SCH (12:13)
== END 2018-05-11 13:00 | disposition home or self-care (01) ==
LOC: WFO 00:14 → FBP 00:33 → WFO 01:57 → FBP 01:58
PROVIDERS: ADMIT Obstetrics & Gynecology; ATTEND Obstetrics & Gynecology
DX: O60.03 Preterm labor without delivery, third trimester (principal); O26.13 Low weight gain in pregnancy, third trimester; O36.5930 Maternal care for other known or suspected poor fetal growth, third trimester, not applicable or unspecified; O25.13 Malnutrition in pregnancy, third trimester; O99.013 Anemia complicating pregnancy, third trimester; D64.9 Anemia, unspecified; O99.333 Smoking (tobacco) complicating pregnancy, third trimester; F17.210 Nicotine dependence, cigarettes, uncomplicated; Z3A.28 28 weeks gestation of pregnancy
CPT/HCPCS: 36415; 76816; 80053; 80306; 81003; 82731; 82950; 84112; 85025; 85027; 86850; 96365; 96372; 96375; 99213; A9270; G0378; J1756; J7120; 81001; 87086

== ENCOUNTER 2018-05-15 13:27 | Outpatient (CLI) | payer BC, MEDICAID ==
[2018-05-15 13:58] VITALS: BP 111/60
== END 2018-05-15 14:35 | disposition home or self-care (01) ==
LOC: WFO 13:27 → FBP 13:40 → WFO 14:35
PROVIDERS: ATTEND Obstetrics & Gynecology
DX: O36.5930 Maternal care for other known or suspected poor fetal growth, third trimester, not applicable or unspecified (principal); Z3A.29 29 weeks gestation of pregnancy
CPT/HCPCS: 59025

== ENCOUNTER 2018-05-18 08:58 | Outpatient (CLI) | payer BC, MEDICAID ==
[2018-05-18 09:58] VITALS: BP 125/63
== END 2018-05-18 09:40 | disposition home or self-care (01) ==
LOC: WFO 08:58 → FBP 08:59 → WFO 09:40
PROVIDERS: ATTEND Obstetrics & Gynecology
DX: O36.5930 Maternal care for other known or suspected poor fetal growth, third trimester, not applicable or unspecified (principal); Z3A.29 29 weeks gestation of pregnancy
CPT/HCPCS: 59025

== ENCOUNTER 2018-05-22 14:29 | Outpatient (CLI) | payer MEDICAID ==
[2018-05-22 16:07] VITALS: BP 107/62
--- NOTE | 2018-05-23 19:39 | Ultrasound Report ---
Reason: GROWTH RESTRICTION Procedure Date: 05/22/2018 Accession Number: [id number] / [id number] Procedure: US - OB F/U or Repeat CPT Code: FULL RESULT: EXAM: COMPLETE OBSTETRICAL ULTRASOUND EXAM DATE: 05/22/2018 04:11 PM. CLINICAL HISTORY: Follow-up on borderline low weight. COMPARISON: 05/10/2018. TECHNIQUE: Real-time sonographic evaluation of the fetus performed by the camp counselor. Multiple client representative static images were saved for review. DATING: Established EGA 30 weeks 0 days with LYNNE 07/31/2018 based on referring physician information. EGA 28 weeks 5 days with LYNNE 08/09/2018 based on first ultrasound. EGA 28 weeks 6 days with LYNNE 08/08/2018 based on the current ultrasound. GENERAL EVALUATION Gore . Cardiac activity: 146 bpm. movement: Visualized. Presentation: Cephalic. Placenta: Anterior position. No evidence for previa. Amniotic fluid: RICHMOND 14.1 MVP 4.7 cm. BIOMETRY Bi-Parietal Diameter (BPD): 7.2 cm, 28 weeks 6 days. Head Circumference (HC): 27 cm, 29 weeks 3 days. Abdominal Circumference (AC): 24.2 cm, 28 weeks 3 days. Femur Length (FL): 5.3 cm, 27 weeks 6 days. Estimated Weight: 1229 g, 27th percentile for 30 weeks 0 days. Cervix: Long and closed. Transabdominal length 3.8 cm. IMPRESSION: 1. Gore live intrauterine with gestational age 30 weeks 0 days based on referring physician input. 2. Estimated weight is within expected limits for assigned dating. RADIA
== END 2018-05-22 16:25 | disposition home or self-care (01) ==
LOC: DI 14:29 → FBP 15:55 → DI 16:25
PROVIDERS: ATTEND Obstetrics & Gynecology
DX: O99.89 Other specified diseases and conditions complicating pregnancy, childbirth and the puerperium (principal); R10.9 Unspecified abdominal pain; O99.013 Anemia complicating pregnancy, third trimester; Z3A.30 30 weeks gestation of pregnancy
CPT/HCPCS: 59025; 76816

== ENCOUNTER 2018-05-25 09:07 | Outpatient (CLI) | payer MEDICAID ==
[2018-05-25 09:23] VITALS: BP 109/69
--- NOTE | 2018-05-26 15:57 | PROVIDER PROGRESS NOTE ---
Subjective - Prog Note Date Prog Note Date: 05/25/18 Prog Note Time: 11:00 - Subjective Subjective: Ms. Hopper is a 22-year-old 2 para 0 aborta 1 woman at 30 weeks gestational age who is receiving twice weekly NSTs due to concerns about growth restriction. External heart tracing: Reactive category 1 baseline 140s, moderate variability accelerations present no decelerations no contractions
== END 2018-05-25 09:50 | disposition home or self-care (01) ==
LOC: WFO 09:07 → FBP 09:08 → WFO 09:50
PROVIDERS: ATTEND Obstetrics & Gynecology
DX: O36.5930 Maternal care for other known or suspected poor fetal growth, third trimester, not applicable or unspecified (principal); Z3A.30 30 weeks gestation of pregnancy
CPT/HCPCS: 59025

== ENCOUNTER 2018-05-28 15:09 | Outpatient (CLI) | payer MEDICAID ==
[2018-05-28 15:41] VITALS: BP 101/62
--- NOTE | 2018-05-28 18:05 | Ultrasound Report ---
Reason: RICHMOND OLIGOHYDDRAMNIOS Procedure Date: 05/28/2018 Accession Number: [id number] / [id number] Procedure: US - OB Limited CPT Code: FULL RESULT: EXAM: LIMITED OBSTETRICAL ULTRASOUND EXAM DATE: 05/28/2018 05:45 PM. CLINICAL HISTORY: RICHMOND OLIGOHYDRAMNIOS. COMPARISON: OB LIMITED 05/22/2018 3:17 PM. TECHNIQUE: Real-time sonographic evaluation of the fetus performed by the shovel oiler. Multiple patient intake representative static images were saved for review. Additional transvaginal imaging to more accurately evaluate cervical length/placental position/etc. DATING: Established EGA 30 weeks 6 days with LYNNE 07/31/2018. GENERAL EVALUATION Gore . Cardiac activity: 134 bpm. movement: Visualized. Presentation: Cephalic. Placenta: Anterior position. Amniotic fluid: Normal. RICHMOND 18.2 cm. MVP 6.7 cm. ANATOMY Not assessed. MATERNAL STRUCTURES Cervix is long and closed measuring 3.9 cm. IMPRESSION: 1. Gore live intrauterine with gestational age 30 weeks 6 days based on established LYNNE. 2. Amniotic fluid index is within normal limits. 3. The cervix is long and closed measuring 3.9 cm. RADIA
--- NOTE | 2018-05-31 18:30 | Labor Flowsheet ---
Labor Flowsheet Datetime Report Generated by CPN: 05/31/2018 18:30 Datetime: 05/31/2018 18:24 Pulse: 77 SpO2 (%): 99 Datetime: 05/31/2018 18:17 VITAL SIGNS NBP Sys/Teodora/Mean (mmHg): 127 : 85 : 93
== END 2018-05-28 16:10 | disposition home or self-care (01) ==
LOC: DI 15:09 → FBP 15:25 → DI 16:10
PROVIDERS: ATTEND Obstetrics & Gynecology
DX: O36.5930 Maternal care for other known or suspected poor fetal growth, third trimester, not applicable or unspecified (principal); Z3A.30 30 weeks gestation of pregnancy
CPT/HCPCS: 59025; 76815

== ENCOUNTER 2018-06-01 08:54 | Outpatient (CLI) | payer MEDICAID ==
[2018-06-01 10:04] VITALS: BP 110/65
== END 2018-06-01 10:00 | disposition home or self-care (01) ==
LOC: WFO 08:54 → FBP 08:57 → WFO 10:00
PROVIDERS: ATTEND Obstetrics & Gynecology
DX: O36.5930 Maternal care for other known or suspected poor fetal growth, third trimester, not applicable or unspecified (principal); Z3A.31 31 weeks gestation of pregnancy
CPT/HCPCS: 59025; 76815

== ENCOUNTER 2018-06-01 14:25 | Outpatient (CLI) | payer MEDICAID ==
--- NOTE | 2018-06-01 16:06 | Ultrasound Report ---
Reason: OLIGO, IUGR Procedure Date: 06/01/2018 Accession Number: [id number] / [id number] Procedure: US - OB Limited CPT Code: FULL RESULT: EXAM: LIMITED OBSTETRICAL ULTRASOUND EXAM DATE: 06/01/2018 02:41 PM. CLINICAL HISTORY: Oligohydramnios and intrauterine growth retardation. COMPARISON: OB limited 05/28/2018 5:23 PM and prior. TECHNIQUE: Real-time sonographic evaluation of the fetus performed by the senior asset manager. Multiple group sales representative static images were saved for review. Additional transvaginal imaging to more accurately evaluate cervical length/placental position/etc. DATING: Established EGA 31 weeks 3 days with LYNNE 07/31/2018. GENERAL EVALUATION Gore . Cardiac activity: 132 bpm. movement: Visualized. Presentation: Cephalic. Placenta: Anterior position. Amniotic fluid: Normal. RICHMOND 13.2cm. MVP 4.1 cm. IMPRESSION: 1. Gore live intrauterine with gestational age 31 weeks 3 days based on established LYNNE. 2. Normal amniotic fluid volume. RADIA
== END 2018-06-01 14:26 | disposition home or self-care (01) ==
LOC: DI 14:25
PROVIDERS: ATTEND Obstetrics & Gynecology
DX: O36.5930 Maternal care for other known or suspected poor fetal growth, third trimester, not applicable or unspecified (principal)
CPT/HCPCS: 76815

== ENCOUNTER 2018-06-04 15:10 | Outpatient (CLI) | payer MEDICAID ==
[2018-06-04 16:48] VITALS: BP 109/63
--- NOTE | 2018-06-04 19:58 | Ultrasound Report ---
Reason: INTRUATERINCE GROWTH RESTRICTION,THIRD TRIMESTER Procedure Date: 06/04/2018 Accession Number: [id number] / [id number] Procedure: US - OB Limited CPT Code: FULL RESULT: EXAM: LIMITED OBSTETRICAL ULTRASOUND EXAM DATE: 06/04/2018 03:39 PM. CLINICAL HISTORY: Intrauterine growth restriction, third trimester. COMPARISON: OB LIMITED 06/01/2018 2:41 PM. TECHNIQUE: Real-time sonographic evaluation of the fetus performed by the dedicated regional driver. Multiple data entry representative static images were saved for review. Additional transvaginal imaging to more accurately evaluate cervical length/placental position/etc. DATING: Established EGA 31 weeks 6 days with LYNNE 07/31/2018. GENERAL EVALUATION Gore . Cardiac activity: 137 bpm. movement: Visualized. Presentation: Transverse, head on maternal right. Placenta: Anterior position. Amniotic fluid: Normal. RICHMOND 16.6 cm. MVP 6.1 cm. MATERNAL STRUCTURES Closed, 3.9 cm long, seen best transvaginally. IMPRESSION: 1. Gore live intrauterine with gestational age 31 weeks 6 days based on established LYNNE. 2. Normal RICHMOND of 16.6 cm. RADIA
--- NOTE | 2018-06-06 01:29 | Labor Flowsheet ---
Labor Flowsheet Datetime Report Generated by CPN: 06/06/2018 01:29 Datetime: 06/05/2018 23:34 VITAL SIGNS NBP Sys/Teodora/Mean (mmHg): 123 : 84 : 93 Pulse: 91 Datetime: 06/05/2018 23:24 ASSESSMENT A Comments: Error - tracing actually Yzobella Ariel and is actually tracing under Juan Kemnow (pre vious triage that is still in Centricity) Datetime: 06/04/2018 16:54 SpO2 (%): 100
== END 2018-06-04 16:55 | disposition home or self-care (01) ==
LOC: DI 15:10 → FBP 16:23 → DI 16:55
PROVIDERS: ATTEND Obstetrics & Gynecology
DX: O36.5930 Maternal care for other known or suspected poor fetal growth, third trimester, not applicable or unspecified (principal)
CPT/HCPCS: 59025; 76815; 76817

== ENCOUNTER 2018-06-08 08:53 | Outpatient (CLI) | payer MEDICAID ==
[2018-06-08 09:24] VITALS: BP 114/74
== END 2018-06-08 09:45 | disposition home or self-care (01) ==
LOC: WFO 08:53 → FBP 08:55 → WFO 09:45
PROVIDERS: ATTEND Obstetrics & Gynecology
DX: O36.5930 Maternal care for other known or suspected poor fetal growth, third trimester, not applicable or unspecified (principal); Z3A.32 32 weeks gestation of pregnancy
CPT/HCPCS: 59025

== ENCOUNTER 2018-06-10 18:53 | Outpatient (CLI) | payer MEDICAID ==
[2018-06-10 19:16] VITALS: BP 112/67
[2018-06-10 19:44] LABS: RUPTURE OF MEMBRANES PLUS NEGATIVE (NEGATIVE)
== END 2018-06-10 20:23 | disposition home or self-care (01) ==
LOC: WFO 18:53 → EMS 18:53 → FBP 18:54 → EMS 20:23 → FBP 20:23
PROVIDERS: ATTEND Obstetrics & Gynecology
DX: O99.89 Other specified diseases and conditions complicating pregnancy, childbirth and the puerperium (principal); N89.8 Other specified noninflammatory disorders of vagina; Z3A.32 32 weeks gestation of pregnancy
CPT/HCPCS: 84112; 87797; 99213

== ENCOUNTER 2018-06-12 08:01 | Outpatient (CLI) | payer MEDICAID ==
[2018-06-12 09:21] VITALS: BP 106/59
--- NOTE | 2018-06-12 12:16 | Ultrasound Report ---
Reason: INTRUATERINCE GROWTH RESTRICTION,THIRD TRIMESTER Procedure Date: 06/12/2018 Accession Number: [id number] / [id number] Procedure: US - OB Limited CPT Code: FULL RESULT: EXAM: LIMITED OBSTETRICAL ULTRASOUND EXAM DATE: 06/12/2018 08:09 AM. CLINICAL HISTORY: Intrauterine growth restriction, third trimester. COMPARISON: OB LIMITED 06/04/2018 3:39 PM. TECHNIQUE: Real-time sonographic evaluation of the fetus performed by the weaving machine operator. Multiple residential sales representative static images were saved for review. DATING: Established EGA 33 weeks 0 days with LYNNE 07/31/2018. GENERAL EVALUATION Gore . Cardiac activity: 148 bpm. movement: Visualized. Presentation: Cephalic. Placenta: Anterior position. Amniotic fluid: Normal. RICHMOND 16.7 cm. MVP 7.0 cm. MATERNAL STRUCTURES Cervix is closed and measures 4.2 cm in length. BIOMETRY Bi-Parietal Diameter (BPD): 7.7 cm, 31 weeks 0 days Head Circumference (HC): 29.4 cm, 32 weeks 3 days Abdominal Circumference (AC): 27.9 cm, 32 weeks 0 days Femur Length (FL): 6.1 cm, 32 weeks 4 days Estimated Weight: 1835 g, 13th percentile for 33 weeks 0 days. IMPRESSION: 1. Gore live intrauterine with gestational age 33 weeks 0 days based on obstetric physician supplied established due date. 2. Estimated weight is at the 13th percentile for the established due date. FLOR
--- NOTE | 2018-06-12 19:20 | PROVIDER PROGRESS NOTE ---
Subjective - Prog Note Date Prog Note Date: 06/12/18 Prog Note Time: 10:40 - Subjective Pt reports feeling: Worse (Percentile EFW decreasing) Subjective: Juan is a 22-year-old 2 para 0 woman at 33 weeks gestation who is being monitored for growth restriction. She reports adequate movement. Patient had a office visit yesterday with me. External monitor tracing baseline 135 moderate variability excels meet contrast criteria no decelerations of significance no contractions Patient underwent repeat ultrasound growth measurements. Fetus is descended from the 27th percentile to the 13th percentile. Cervical length is 4.2 cm. Await complete report We will continue to monitor for growth limitations/restriction. Patient has ultrasound with maternal medicine on 25 June
== END 2018-06-12 10:40 | disposition home or self-care (01) ==
LOC: DI 08:01 → FBP 08:58 → DI 10:40
PROVIDERS: ATTEND Obstetrics & Gynecology
DX: O36.5930 Maternal care for other known or suspected poor fetal growth, third trimester, not applicable or unspecified (principal)
CPT/HCPCS: 59025; 76815

== ENCOUNTER 2018-06-12 15:57 | Outpatient (CLI) | payer MEDICAID ==
[2018-06-12 17:14] LABS: BILIRUBIN,URINE NEGATIVE (NEGATIVE); GLUCOSE, URINE (UA) NEGATIVE (NEGATIVE); KETONES,URINE (UA) NEGATIVE (NEGATIVE); LEUKOCYTE ESTERASE, URINE NEGATIVE (NEGATIVE); NITRITE,URINE NEGATIVE (NEGATIVE); OCCULT BLOOD,URINE NEGATIVE (NEGATIVE); PH,URINE 7.5 PH (5.0-7.5); PROTEIN,URINE NEGATIVE (NEGATIVE); UROBILINOGEN,URINE 0.2 (NORMAL) E.U./dL (NORMAL)
[2018-06-12 17:23] LABS: CLARITY,URINE CLEAR (CLEAR)
[2018-06-12 17:24] LABS: AMORPHOUS SEDIMENT,UR Few /LPF; BACTERIA,URINE None Seen /HPF (None Seen); RBC,URINE 0-5 /HPF (0-5); SQUAMOUS EPITHELIAL CELL,UR MOD Squamous (<= Few)
[2018-06-12] MEDS ORDERED: MORPHINE 10 MG/ML VIAL IM STA (18:23)
[2018-06-12] MEDS ORDERED: PROMETHAZINE 25 MG/1 ML VIAL IM STA (18:24)
[2018-06-12] MEDS ORDERED: MAGNESIUM HYDROXIDE 2,400 MG/30 ML UDC PO PRN (18:26)
[2018-06-12 18:50] VITALS: BP 112/66
--- NOTE | 2018-06-12 19:27 | PROVIDER PROGRESS NOTE ---
Subjective - Prog Note Date Prog Note Date: 06/12/18 Prog Note Time: 19:25 - Subjective Subjective: Juan is a 22-year-old 2 para 0 woman at 33 weeks with reported regular contractions and abdominal pain. She has no suspected leakage of fluid. She denies STD exposure or symptoms consistent with UTI. No symptoms consistent with PIH Uterus normal resting tone and minimal if any contractions, movement sensed no point tenderness Cervix: Open 1 cm 30% effaced -2 station mucous plug and intact, somewhat soft External monitor tracing: Baseline 135-140 moderate variability excels present category 1 strip rare mild variable decelerations irritability on toco monitor but when palpated no significant contractions Assessment Uterine irritability without true labor. Debility feeling maternal anxiety and fatigue. Patient opted for therapeutic rest with morphine 10 mg IM and Phenergan 25 mg IM. Constipation problematic and recommended milk of magnesia and prunes Patient to be seen next week in [facility] women[facility] clinic Maternal medicine consult and ultrasound on 25 June Continue biweekly NSTs and weekly RICHMOND Patient to do kick counts daily. Objective - Vital Signs/Intake & Output Vital Signs: Vital Signs x48h Temp Pulse Resp BP Pulse Ox 06/12/18 18:30 93 20 112/66 97 06/12/18 16:09 98.1 F 94 20 108/65 100 - Lab Results Other Labs: Lab Results x24hrs 06/12/18 Range/Units 16:15 Urine Color YELLOW Urine Clarity CLEAR (CLEAR) Urine pH 7.5 (5.0-7.5) PH Ur Specific [place] 1.015 (1.002-1.030) Urine Protein NEGATIVE (NEGATIVE) mg/dL Urine Glucose (UA) NEGATIVE (NEGATIVE) mg/dL Urine Ketones NEGATIVE (NEGATIVE) mg/dL Urine Occult Blood NEGATIVE (NEGATIVE) Urine Nitrite NEGATIVE (NEGATIVE) Urine Bilirubin NEGATIVE (NEGATIVE) Urine Urobilinogen 0.2 (NORMAL) (NORMAL) E.U./dL Ur Leukocyte Esterase NEGATIVE (NEGATIVE) Urine RBC 0-5 (0-5) /HPF Urine WBC 0-3 (0-5) /HPF Ur Squamous Epith Cells MOD Squamous H (<= Few) Amorphous Sediment Few /LPF Urine Bacteria None Seen (None Seen) /HPF Urine Culture Comments NOT INDICATED
== END 2018-06-12 18:46 | disposition home or self-care (01) ==
LOC: WFO 15:57 → FBP 15:58 → WFO 18:46
PROVIDERS: ATTEND Obstetrics & Gynecology
DX: O47.03 False labor before 37 completed weeks of gestation, third trimester (principal); Z3A.33 33 weeks gestation of pregnancy; O99.613 Diseases of the digestive system complicating pregnancy, third trimester; K59.00 Constipation, unspecified; O99.343 Other mental disorders complicating pregnancy, third trimester; F41.9 Anxiety disorder, unspecified; R53.83 Other fatigue; O36.5930 Maternal care for other known or suspected poor fetal growth, third trimester, not applicable or unspecified
CPT/HCPCS: 59025; 76815; 81001; 96372; 99213; A9270; 87086

== ENCOUNTER 2018-06-15 08:44 | Outpatient (CLI) | payer MEDICAID ==
[2018-06-15 09:06] VITALS: BP 123/70
== END 2018-06-15 09:30 | disposition home or self-care (01) ==
LOC: WFO 08:44 → FBP 08:46 → WFO 09:30
PROVIDERS: ATTEND Obstetrics & Gynecology
DX: O36.5930 Maternal care for other known or suspected poor fetal growth, third trimester, not applicable or unspecified (principal); Z3A.33 33 weeks gestation of pregnancy
CPT/HCPCS: 59025

== ENCOUNTER 2018-06-19 07:52 | Outpatient (CLI) | payer MEDICAID ==
--- NOTE | 2018-06-19 12:55 | Ultrasound Report ---
Reason: INTRUATERINCE GROWTH RESTRICTION,THIRD TRIMESTER Procedure Date: 06/19/2018 Accession Number: [id number] / [id number] Procedure: US - OB Limited CPT Code: FULL RESULT: EXAM: LIMITED OBSTETRICAL ULTRASOUND EXAM DATE: 06/19/2018 08:02 AM. CLINICAL HISTORY: Intrauterine GROWTH Restriction, third TRIMESTER. For follow-up COMPARISON: 06/12/2018. TECHNIQUE: Real-time sonographic evaluation of the fetus performed by the concrete products machine operator. Multiple chemical sales representative static images were saved for review. DATING: Established EGA 34 weeks 0 days with LYNNE 07/31/2018. GENERAL EVALUATION Gore . Cardiac activity: 137 bpm. movement: Present Presentation: Cephalic. Placenta: Anterior position. Amniotic fluid: Normal. RICHMOND 13.6 cm. MVP 5.5 cm. IMPRESSION: 1. RICHMOND 13.6 cm, MVP 5.5 cm
== END 2018-06-19 07:53 | disposition home or self-care (01) ==
LOC: DI 07:52
PROVIDERS: ATTEND Obstetrics & Gynecology
DX: O36.5930 Maternal care for other known or suspected poor fetal growth, third trimester, not applicable or unspecified (principal); Z3A.34 34 weeks gestation of pregnancy
CPT/HCPCS: 76815

== ENCOUNTER 2018-06-19 08:21 | Outpatient (CLI) | payer MEDICAID ==
[2018-06-19 08:34] VITALS: BP 120/76
--- NOTE | 2018-06-20 09:46 | PROVIDER PROGRESS NOTE ---
Subjective - Prog Note Date Prog Note Date: 06/19/18 Prog Note Time: 09:00 - Subjective Subjective: Juan is a 22-year-old 2 para 0 at 34 weeks 0 days gestation who is being monitored for potential growth restriction. She is a non-smoker. External monitoring strip: Reactive, category 1; baseline 135-140 with moderate variability; prerequisite 15 x 15 accelerations noted on several occasions, minor spiking deceleration to 120 on 2 occasions with immediate return and no significance; rare contractions noted This report is for NST interpretation only and no detailed physical exam conducted in labor and delivery
== END 2018-06-19 08:55 | disposition home or self-care (01) ==
LOC: WFO 08:21 → FBP 08:22 → WFO 08:55
PROVIDERS: ATTEND Obstetrics & Gynecology
DX: O36.5930 Maternal care for other known or suspected poor fetal growth, third trimester, not applicable or unspecified (principal); O99.333 Smoking (tobacco) complicating pregnancy, third trimester; Z3A.34 34 weeks gestation of pregnancy
CPT/HCPCS: 59025; 76815

== ENCOUNTER 2018-06-22 08:54 | Outpatient (CLI) | payer MEDICAID ==
[2018-06-22 09:06] VITALS: BP 116/71
== END 2018-06-22 09:55 | disposition home or self-care (01) ==
LOC: WFO 08:54 → FBP 08:56 → WFO 09:55
PROVIDERS: ATTEND Obstetrics & Gynecology
DX: O36.5930 Maternal care for other known or suspected poor fetal growth, third trimester, not applicable or unspecified (principal); Z3A.34 34 weeks gestation of pregnancy
CPT/HCPCS: 59025

== ENCOUNTER 2018-06-26 08:28 | Outpatient (CLI) | payer MEDICAID ==
--- NOTE | 2018-06-26 14:05 | Ultrasound Report ---
Reason: INTRUATERINCE GROWTH RESTRICTION,THIRD TRIMESTER Procedure Date: 06/26/2018 Accession Number: [id number] / [id number] Procedure: US - OB Limited CPT Code: FULL RESULT: EXAM: LIMITED OBSTETRICAL ULTRASOUND EXAM DATE: 06/26/2018 08:59 AM. CLINICAL HISTORY: Intrauterine growth restriction. COMPARISON: OB LIMITED 06/19/2018 8:01 AM. TECHNIQUE: Real-time sonographic evaluation of the fetus performed by the refractory worker. Multiple self pay representative static images were saved for review. DATING: Established EGA 35 weeks 0 days with LYNNE 07/31/2018. GENERAL EVALUATION Gore . Cardiac activity: 148 bpm. movement: Visualized. Presentation: Cephalic. Placenta: Anterior position. Amniotic fluid: Normal. RICHMOND 11.9 cm. MVP 4.6 cm. IMPRESSION: 1. Gore live intrauterine with gestational age 35 weeks 0 days based on 07/31/2018. 2. Normal amniotic fluid volume. RADIA
--- NOTE | 2018-06-28 08:52 | PROVIDER PROGRESS NOTE ---
Subjective - Prog Note Date Prog Note Date: 06/26/18 Prog Note Time: 12:00 - Subjective Subjective: Ms. Gonzales now is a 22-year-old woman 2 para 0010 at 35 weeks gestation who is being watch for potential SGA fetus and low fluid volume. To day's visit is for NST. External heart tracing baseline 130s moderate variability, positive accelerations, occasional uterine contraction, reactive tracing: Category 1 Patient discharged home and instructed to follow-up in office for next scheduled appointment
== END 2018-06-26 08:29 | disposition home or self-care (01) ==
LOC: DI 08:28
PROVIDERS: ATTEND Obstetrics & Gynecology
DX: O36.5930 Maternal care for other known or suspected poor fetal growth, third trimester, not applicable or unspecified (principal)
CPT/HCPCS: 76815

== ENCOUNTER 2018-06-26 08:55 | Outpatient (CLI) | payer MEDICAID ==
[2018-06-26 09:28] VITALS: BP 113/72
== END 2018-06-26 10:15 | disposition home or self-care (01) ==
LOC: WFO 08:55 → FBP 08:56 → WFO 10:15
PROVIDERS: ATTEND Obstetrics & Gynecology
DX: O41.03X0 Oligohydramnios, third trimester, not applicable or unspecified (principal); Z3A.35 35 weeks gestation of pregnancy; O36.5930 Maternal care for other known or suspected poor fetal growth, third trimester, not applicable or unspecified
CPT/HCPCS: 59025; 76815

== ENCOUNTER 2018-06-28 08:14 | Outpatient (CLI) | payer MEDICAID ==
--- NOTE | 2018-06-28 15:12 | Ultrasound Report ---
Reason: INTRAUTERINE GROWTH RESTRICTION Procedure Date: 06/28/2018 Accession Number: [id number] / [id number] Procedure: US - OB F/U or Repeat CPT Code: FULL RESULT: EXAM: FOLLOW-UP OBSTETRICAL ULTRASOUND EXAM DATE: 06/28/2018 08:31 AM. CLINICAL HISTORY: Intrauterine growth restriction. COMPARISON: OB follow-up or repeat 05/10/2018 3:21 AM. OB detailed evaluation 02/27/2018 7:53 AM. OB limited 05/22/2018 3:17 PM. TECHNIQUE: Real-time sonographic evaluation of the fetus performed by the mechanical drawing teacher. Multiple business services sales representative static images were saved for review. DATING: Established EGA 35 weeks 2 days with LYNNE 07/31/2018 based on LMP. EGA 34 weeks 0 days with LYNNE 08/09/2018 based on first ultrasound. EGA 33 weeks 2 days with LYNNE 08/14/2018 based on the current ultrasound. GENERAL EVALUATION Gore . Cardiac activity: 140 bpm. movement: Visualized. Presentation: Breech. Placenta: Anterior position. Amniotic fluid: Normal. RICHMOND 13.5 cm. MVP 6.7 cm. BIOMETRY Bi-Parietal Diameter (BPD): 8.0 cm, 32 weeks 3 days Head Circumference (HC): 30.1 cm, 33 weeks 2 days Abdominal Circumference (AC): 30.7 cm, 34 weeks 4 days Femur Length (FL): 6.3 cm, 32 weeks 5 days Estimated Weight: 2269 g, 14th percentile for 35 weeks 2 days. MATERNAL STRUCTURES Long and closed cervix, 4.2 cm. IMPRESSION: 1. Gore live intrauterine with gestational age 35 weeks 2 days based on last menstrual period. 2. Estimated weight is at the lower limits of normal but does not meet formal criteria for intrauterine growth restriction. 3. Inconsistent interval growth when reviewing studies dating back to 02/27/2018. Recommendation: Doppler interrogation of the cord arterial supply. Use of serial follow-up ultrasonography every 3-4 weeks and no more frequently than every 2 weeks in conjunction with NST and/or biophysical profiles is associated with improved outcomes. ACOG bulletins 134 and 175. RADIA The call report notification system was initiated by Dr. Wilmar Donald at 02:52 PM hrs on 06/28/2018. ADDENDUM: 06/28/18 15:21 The above findings were discussed with Dr. Leon by Dr. Wilmar Donald at 03:21 PM hrs on 06/28/2018.
== END 2018-06-28 08:15 | disposition home or self-care (01) ==
LOC: DI 08:14
PROVIDERS: ATTEND Obstetrics & Gynecology
DX: O36.5930 Maternal care for other known or suspected poor fetal growth, third trimester, not applicable or unspecified (principal)
CPT/HCPCS: 76816

== ENCOUNTER 2018-06-29 08:48 | Outpatient (CLI) | payer MEDICAID ==
[2018-06-29 09:30] VITALS: BP 114/77
== END 2018-06-29 09:25 | disposition home or self-care (01) ==
LOC: WFO 08:48 → FBP 08:50 → WFO 09:25
PROVIDERS: ATTEND Obstetrics & Gynecology
DX: O36.5930 Maternal care for other known or suspected poor fetal growth, third trimester, not applicable or unspecified (principal); Z3A.35 35 weeks gestation of pregnancy
CPT/HCPCS: 59025

== ENCOUNTER 2018-07-03 21:09 | Outpatient (CLI) | payer MEDICAID ==
[2018-07-03 22:09] LABS: BASOPHILS # (AUTO) 0.1 10^3/uL (0.0-0.1); BASOPHILS % (AUTO) 0.5 %; EOSINOPHILS # (AUTO) 0.1 10^3/uL (0.0-0.7); EOSINOPHILS % (AUTO) 0.9 %; HGB - HEMOGLOBIN 9.8 g/dL (12.0-16.0); LYMPHOCYTES # (AUTO) 1.9 10^3/uL (1.5-3.5); LYMPHOCYTES % (AUTO) 14.2 %; MEAN CORPUSCULAR HEMOGLOBIN 31.6 pg (27.0-31.0); MEAN CORPUSCULAR HGB CONC 33.7 g/dL (32.0-36.0); MEAN CORPUSCULAR VOLUME 93.7 fL (81.0-99.0); MEAN PLATELET VOLUME 6.6 fL (7.9-10.8); MONOCYTES # (AUTO) 1.1 10^3/uL (0.0-1.0); MONOCYTES % (AUTO) 8.4 %; NEUTROPHILS # (AUTO) 10.3 10^3/uL (1.5-6.6); PLT - PLATELET COUNT 277 10^3/uL (130-450); RED BLOOD COUNT 3.11 10^6/uL (4.20-5.40); RED CELL DISTRIBUTION WIDTH 13.3 % (12.0-15.0); WHITE BLOOD COUNT 13.5 x10^3/uL (4.8-10.8)
[2018-07-03 23:24] LABS: HB2 TOTAL 10.1 g/dL; HEMOGLOBIN A1C 0.38 g/dL; HEMOGLOBIN A1C % 5.6 % (4.6-6.2)
[2018-07-03 23:42] LABS: BILIRUBIN,URINE NEGATIVE (NEGATIVE); GLUCOSE, URINE (UA) NEGATIVE (NEGATIVE); KETONES,URINE (UA) NEGATIVE (NEGATIVE); LEUKOCYTE ESTERASE, URINE NEGATIVE (NEGATIVE); NITRITE,URINE NEGATIVE (NEGATIVE); OCCULT BLOOD,URINE NEGATIVE (NEGATIVE); PROTEIN,URINE NEGATIVE (NEGATIVE); UROBILINOGEN,URINE 0.2 (NORMAL) E.U./dL (NORMAL)
--- NOTE | 2018-07-03 23:45 | Ultrasound Report ---
Reason: Abdominal trauma/pain Procedure Date: 07/03/2018 Accession Number: [id number] / [id number] Procedure: US - OB Limited CPT Code: FULL RESULT: EXAM: BIOPHYSICAL PROFILE EXAM DATE: 07/03/2018 11:29 PM. CLINICAL HISTORY: Abdominal trauma/pain. COMPARISON: OB LIMITED 06/26/2018 8:41 AM. TECHNIQUE: Real-time sonographic evaluation of the fetus performed by the train system operator. Multiple rental representative static images were saved for review. DATING: Established EGA 36 weeks 0 days with LYNNE 07/31/2018. GENERAL EVALUATION Gore . Cardiac activity: 135 bpm. movement: Visualized. Presentation: Cephalic. Placenta: Anterior position. No evidence for previa or abruption. Amniotic fluid: Normal. RICHMOND 14.7 cm. MVP 6.2 cm. Cervix measures 3.0 cm transabdominally. BIOPHYSICAL PROFILE Breathing = 0 Movement = 2 Tone = 2 Amniotic Fluid = 2 Total 11/10 IMPRESSION: 1. Gore live intrauterine with gestational age 36 weeks 0 days based on established LYNNE. 2. Biophysical profile score 6 of 8. 3. Normal RICHMOND. Cervix measures 3 cm. No evidence of abruption. RADIA
[2018-07-03 23:47] LABS: CLARITY,URINE CLEAR (CLEAR)
[2018-07-04 00:08] LABS: BACTERIA,URINE None Seen /HPF (None Seen); RBC,URINE 0-5 /HPF (0-5); SQUAMOUS EPITHELIAL CELL,UR NONE SEEN (<= Few)
[2018-07-04 01:14] VITALS: BP 115/64
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
== END 2018-07-04 00:40 | disposition home or self-care (01) ==
LOC: WFO 21:09 → FBP 21:10 → WFO 07-04 00:40
PROVIDERS: ATTEND Obstetrics & Gynecology
DX: O99.89 Other specified diseases and conditions complicating pregnancy, childbirth and the puerperium (principal); R10.30 Lower abdominal pain, unspecified; V48.6XXA Car passenger injured in noncollision transport accident in traffic accident, initial encounter; O36.5930 Maternal care for other known or suspected poor fetal growth, third trimester, not applicable or unspecified; O99.013 Anemia complicating pregnancy, third trimester; D64.9 Anemia, unspecified; O99.810 Abnormal glucose complicating pregnancy; Z3A.36 36 weeks gestation of pregnancy
CPT/HCPCS: 36415; 59025; 76815; 76819; 81001; 81599; 83036; 85025; 87086; 99213

== ENCOUNTER 2018-07-06 08:00 | Outpatient (CLI) | payer BC, MEDICAID | END 2018-07-06 23:59 | disposition home or self-care (01) | LOC: LAB.R 08:00 | PROVIDERS: ATTEND Obstetrics & Gynecology | DX: Z33.1 Pregnant state, incidental (principal) | CPT/HCPCS: 87491; 87591 ==

== ENCOUNTER 2018-07-06 09:01 | Outpatient (CLI) | payer MEDICAID ==
[2018-07-06 09:24] VITALS: BP 126/68
== END 2018-07-06 09:45 | disposition home or self-care (01) ==
LOC: WFO 09:01 → FBP 09:08 → WFO 09:45
PROVIDERS: ATTEND Obstetrics & Gynecology
DX: O36.5930 Maternal care for other known or suspected poor fetal growth, third trimester, not applicable or unspecified (principal); Z3A.36 36 weeks gestation of pregnancy
CPT/HCPCS: 59025; 87491; 87591

== ENCOUNTER 2018-07-10 08:25 | Outpatient (CLI) | payer MEDICAID ==
--- NOTE | 2018-07-10 09:32 | Ultrasound Report ---
Reason: INTRUATERINCE GROWTH RESTRICTION,THIRD TRIMESTER Procedure Date: 07/10/2018 Accession Number: [id number] / [id number] Procedure: US - OB Limited CPT Code: FULL RESULT: EXAM: LIMITED OBSTETRICAL ULTRASOUND EXAM DATE: 07/10/2018 08:56 AM. CLINICAL HISTORY: Intrauterine growth restriction, third trimester. COMPARISON: OB limited 07/03/2018 10:28 PM. TECHNIQUE: Real-time sonographic evaluation of the fetus performed by the environmental health and safety leader. Multiple shared services representative static images were saved for review. DATING: Established EGA 37 weeks 0 days with LYNNE 07/31/2018. GENERAL EVALUATION Gore . Cardiac activity: 130 bpm. movement: Visualized. Presentation: Cephalic. Placenta: Anterior position. Amniotic fluid: Normal. RICHMOND 14.7 cm. MVP 4.6 cm. ANATOMY Not specifically imaged on limited exam. MATERNAL STRUCTURES Not specifically imaged on limited exam. IMPRESSION: 1. Gore live intrauterine with gestational age 37 weeks 0 days based on established dates. Estimated date of delivery 07/31/2018. 2. Normal RICHMOND. RADIA
== END 2018-07-10 08:26 | disposition home or self-care (01) ==
LOC: DI 08:25
PROVIDERS: ATTEND Obstetrics & Gynecology
DX: O36.5930 Maternal care for other known or suspected poor fetal growth, third trimester, not applicable or unspecified (principal)
CPT/HCPCS: 76815

== ENCOUNTER 2018-07-10 09:02 | Outpatient (CLI) | payer MEDICAID ==
[2018-07-10 09:35] VITALS: BP 115/73
== END 2018-07-10 09:45 | disposition home or self-care (01) ==
LOC: WFO 09:02 → FBP 09:04 → WFO 09:45
PROVIDERS: ATTEND Obstetrics & Gynecology
DX: O36.5930 Maternal care for other known or suspected poor fetal growth, third trimester, not applicable or unspecified (principal); Z3A.37 37 weeks gestation of pregnancy
CPT/HCPCS: 59025; 76815

== ENCOUNTER 2018-07-13 08:53 | Outpatient (CLI) | payer MEDICAID ==
[2018-07-13 09:21] VITALS: BP 119/73
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
[2018-07-13 11:09] LABS: BILIRUBIN,URINE NEGATIVE (NEGATIVE); GLUCOSE, URINE (UA) NEGATIVE (NEGATIVE); KETONES,URINE (UA) NEGATIVE (NEGATIVE); LEUKOCYTE ESTERASE, URINE TRACE (NEGATIVE); NITRITE,URINE NEGATIVE (NEGATIVE); OCCULT BLOOD,URINE NEGATIVE (NEGATIVE); PH,URINE 5.5 PH (5.0-7.5); PROTEIN,URINE NEGATIVE (NEGATIVE); UROBILINOGEN,URINE 0.2 (NORMAL) E.U./dL (NORMAL)
[2018-07-13 11:10] LABS: CLARITY,URINE CLEAR (CLEAR)
[2018-07-13 11:20] LABS: BACTERIA,URINE Many /HPF (None Seen); CASTS, URINE 0-2 Hyaline Casts /LPF; MUCUS,URINE Few Strands; RBC,URINE 0-5 /HPF (0-5); SQUAMOUS EPITHELIAL CELL,UR MANY Squamous (<= Few)
== END 2018-07-13 10:15 | disposition home or self-care (01) ==
LOC: WFO 08:53 → FBP 08:56 → WFO 10:15
PROVIDERS: ATTEND Obstetrics & Gynecology
DX: O36.5930 Maternal care for other known or suspected poor fetal growth, third trimester, not applicable or unspecified (principal); Z3A.37 37 weeks gestation of pregnancy
CPT/HCPCS: 59025; 81001; 87797

== ENCOUNTER 2018-07-17 16:08 | Outpatient (CLI) | payer MEDICAID ==
[2018-07-17 18:16] VITALS: BP 116/74
== END 2018-07-17 17:35 | disposition home or self-care (01) ==
LOC: WFO 16:08 → FBP 16:11 → WFO 17:35
PROVIDERS: ATTEND Obstetrics & Gynecology
DX: O36.5930 Maternal care for other known or suspected poor fetal growth, third trimester, not applicable or unspecified (principal); Z3A.37 37 weeks gestation of pregnancy
CPT/HCPCS: 59025

== ENCOUNTER 2018-07-20 08:48 | Outpatient (CLI) | payer MEDICAID ==
[2018-07-20 09:10] VITALS: BP 117/80
--- NOTE | 2018-07-20 10:06 | PROVIDER PROGRESS NOTE ---
Subjective - Prog Note Date Prog Note Date: 07/20/18 Prog Note Time: 10:04 - Subjective Pt reports feeling: No change Subjective: 22 yo with a 38w3d IUP presented to L&D for a scheduled NST due to IUGR. NST reactive and category 1. No decels. Discharge to home. Juan is scheduled for induction at 39 weeks. Objective - Vital Signs/Intake & Output Vital Signs: Vital Signs x48h Temp Pulse Resp BP Pulse Ox 07/20/18 09:08 98.6 F 99 16 117/80 99
== END 2018-07-20 09:35 | disposition home or self-care (01) ==
LOC: WFO 08:48 → FBP 08:50 → WFO 09:35
PROVIDERS: ATTEND Obstetrics & Gynecology
DX: O36.5930 Maternal care for other known or suspected poor fetal growth, third trimester, not applicable or unspecified (principal); Z3A.38 38 weeks gestation of pregnancy
CPT/HCPCS: 59025

== ENCOUNTER 2018-07-23 13:37 | Outpatient (CLI) | payer MEDICAID ==
[2018-07-23 14:31] VITALS: BP 126/76
--- NOTE | 2018-07-23 15:42 | Ultrasound Report ---
Reason: iugr - decreased movement Procedure Date: 07/23/2018 Accession Number: [id number] / [id number] Procedure: US - OB Limited CPT Code: FULL RESULT: EXAM: LIMITED OBSTETRICAL ULTRASOUND EXAM DATE: 07/23/2018 02:57 PM. CLINICAL HISTORY: Intrauterine growth restriction- decreased movement. COMPARISON: OB limited 07/10/2018 8:41 AM. TECHNIQUE: Real-time sonographic evaluation of the fetus performed by the dehorner. Multiple merchandising representative static images were saved for review. DATING: Established EGA 38 weeks 6 days with LYNNE 07/31/2018. GENERAL EVALUATION Gore . Cardiac activity: 163 bpm. movement: Visualized. Presentation: Cephalic. Placenta: Anterior position. Amniotic fluid: Normal. RICHMOND 10.3 cm. MVP 3.5 cm. IMPRESSION: 1. Gore live intrauterine with gestational age 38 weeks 6 days based on established LYNNE. 2. Normal amniotic fluid volume. RADIA The call report notification system was initiated by Dr. Wilmar Donald at 03:41 PM on 07/23/2018. ADDENDUM: 07/23/18 15:49 The above call report findings were discussed with Sae Coleman by Dr. Wilmar Donald at 03:49 PM on 07/23/2018.
== END 2018-07-23 16:00 | disposition home or self-care (01) ==
LOC: WFO 13:37 → FBP 13:38 → WFO 16:00
PROVIDERS: ATTEND Obstetrics & Gynecology
DX: O36.8190 Decreased fetal movements, unspecified trimester, not applicable or unspecified (principal); O36.5990 Maternal care for other known or suspected poor fetal growth, unspecified trimester, not applicable or unspecified; Z3A.00 Weeks of gestation of pregnancy not specified
CPT/HCPCS: 59020; 76815

== ENCOUNTER 2018-07-24 17:15 | Inpatient (IN) | payer MEDICAID ==
[2018-07-24] MEDS ORDERED: SODIUM CHLORIDE FLUSH 0.9% 10 ML SYRINGE ONE (17:32)
[2018-07-24 18:19] LABS: BASOPHILS % (AUTO) 0.3 %; EOSINOPHILS # (AUTO) 0.1 10^3/uL (0.0-0.7); EOSINOPHILS % (AUTO) 0.5 %; HGB - HEMOGLOBIN 10.4 g/dL (12.0-16.0); LYMPHOCYTES # (AUTO) 1.8 10^3/uL (1.5-3.5); LYMPHOCYTES % (AUTO) 17.1 %; MEAN CORPUSCULAR HEMOGLOBIN 32.6 pg (27.0-31.0); MEAN CORPUSCULAR VOLUME 93.3 fL (81.0-99.0); MEAN PLATELET VOLUME 6.5 fL (7.9-10.8); MONOCYTES # (AUTO) 1.2 10^3/uL (0.0-1.0); MONOCYTES % (AUTO) 11.3 %; NEUTROPHILS # (AUTO) 7.5 10^3/uL (1.5-6.6); NEUTROPHILS % (AUTO) 70.8 %; PLT - PLATELET COUNT 290 10^3/uL (130-450); RED BLOOD COUNT 3.19 10^6/uL (4.20-5.40); RED CELL DISTRIBUTION WIDTH 13.8 % (12.0-15.0); WHITE BLOOD COUNT 10.6 x10^3/uL (4.8-10.8)
[2018-07-24] MEDS ORDERED: DINOPROSTONE 10 MG SUPP VG SCH (19:58)
[2018-07-24] MEDS ORDERED: ONDANSETRON 4 MG/2 ML VIAL IVP PRN (19:58)
[2018-07-24] MEDS ORDERED: ACETAMINOPHEN 325 MG TABLET PO SCH (20:00)
--- NOTE | 2018-07-24 20:43 | HISTORY & PHYSICAL EXAMINATION ---
Chief Complaint - Chief Complaint Chief Complaint: 39 WEEK GESTATION History of Present Illness - Admitted From Admitted From:: HOME - History Obtained From Records Reviewed: YES History obtained from: PATIENT Exam Limitations: NONE - History of Present Illness HPI Comment/Other: 22 yo EDC 07/31/18, EGA 39 0/7 weeks EGA admitted for IOL. Hx of SGA, with serial US at end of negative for IUGR. US here 06/26/18 EFW 2269 gms @ 14%ile with subsequent US by MFM negative for IUGR per patient report. Patient for IOL. PNC: 1) Smoking cessation: stopped smoking 1 month ago. On Wellbutrin XL 150 mg/d since 2nd trim. per hx for this. Not on this med any other time. Would like to be weaned off Wellbutrin . 2) Anemia: Fe transfusion x 1 @ 28 weeks, on tid Fe 3) Right upper jaw/gum pain, not certain if she has a cavity, plans to see dentist 4) Abnormal 1 hr GTT 144, did not get 3 hr GTT done 5) No records of GC/CT testing at 35-37 weeks: ordered on admission. 6) MBT o POS 7) GBS Neg PMH: Anemia PSH: [place] teeth, Laparoscopic appy (unruptured), normal appy at time of surgery, states had ovarian cysts at time and not sure of cysts operated on. SHx: Quit smoking 1 month ago Meds: Wellbutrin XL 150 m p.o. qhs, Fe tid NKDA Labs: Heb B & C: NR x 2 HIV: NR Rubella POS UA: Neg MBT O POS PNAS Neg GBS Neg 1 hr GTT 144 History - Past Medical History Respiratory: reports: None Neuro: reports: None Endocrine/Autoimmune: reports: None GI: reports: None RECORDS SPECIALIST: reports: Ovarian cysts : reports: None HEENT: reports: Other (Right upper gum/tooth pain) Musculoskeletal: reports: None Derm: reports: None MRSA Hx?: No - Past Surgical History General: reports: Appendectomy - Family & Social History Living arrangement: At home Living Situation: With spouse/s.o. - Substance History Use: Uses substance without health or social issues: NONE - POLST Patient has POLST: No Meds/Allgy - Home Medications Home Medications: Ambulatory Orders Medication Instructions Recorded Confirmed Pnv95/Ferrous Fumarate/FA 11/29/17 [ Vitamin Tablet] - Allergies Allergies/Adverse Reactions: Allergies Allergy/AdvReac Type Severity Reaction Status Date / Time No Known Drug Allergies Allergy Verified 02/21/18 11:13 Review of Systems - Ears, Nose & Throat Ears, Nose & Throat: reports: Bleeding gums, Dental pain (right upper gum vs dental pain. scheduled to see dentist ) - All Other Systems All Other Systems: reports: Other (ROS otherwise negative for CV, Resp, GI/, MS, Skin, Endocrin, Psych) Exam - Vital Signs Reviewed Vital Signs: Yes - Physical Exam General Appearance: positive: No acute distress, Alert Eyes Bilateral: positive: Normal inspection, PERRL, No lid inflammation, No scleral icterus ENT: positive: ENT inspection nml, No signs of dehydration, Other (no severe gum swelling or bleeding, unabe to determine if right dental caries or not on exam, not obvious on exam.) Neck: positive: Nml inspection Respiratory: positive: Chest non-tender, No respiratory distress, Breath sounds nml Cardiovascular: positive: Regular rate & rhythm, No murmur Peripheral Pulses: positive: 2+ Abdomen: positive: Non-tender, No organomegaly, Other (Gravid Uterus. [place] 6 1/2 Lbs.) Back: positive: Nml inspection Skin: positive: Color nml, No rash, Warm Extremities: positive: Non-tender, Full ROM, Nml appearance Neurologic/Psychiatric: positive: Oriented x3, CN's nml (2-12), Motor nml ( RNST Category I with no regular uterine contractions. CX 2/50/-3/mid/mod (Reddy Score 3)) Conclusion/Plan - Problem List (1) Term Conclusion/Plan: # 39 0/7 weeks with SGA, followed with serial US due to concerns of possible IUGR, US >10%ile. Admitted for IOL # GBS Neg # Cx 2/50/-3/mid/mod with Reddy Score 3, adequt # Anemia: Type and Screen # Right upper dental/gum pain, with exam not remarkable: tylenol prn at patient request, will see dentist # Smoking Cessation: quit 1 month ago, on Wellbutrin 150 mg XL during # 1 hr GTT 144 mildly elevated # No GC/Ct testing at 35-37 weeks. Plan: # Discussed several options for Cx ripening/IOL to include oral and vaginal cytotec, low dose IV pitocin overnight, vaginal cervidil overnight. Patient opted for vaginal cervidil. # Tylenol 1,000 mg for tooth pain # Urine GC/CT today # Vistaril 25 mg prn sleep # Fentanyl 50 micrograms prn contractions pain prn at 8 cm or less Patient understands condition and all questions answered to her satisfaction. - Lab Results Fish Bones: 07/24/18 18:10
[2018-07-24] MEDS ORDERED: hydrOXYzine PAMOATE 25 MG CAPSULE PO PRN (21:00)
[2018-07-24] MEDS ORDERED: ACETAMINOPHEN 500 MG TABLET PO SCH (21:54)
[2018-07-24] MEDS: buPROPion XL 150 MG TABLET PO SCH (21:58)
[2018-07-24] MEDS: fentaNYL 100 MCG/2 ML VIAL IVP PRN (23:25)
[2018-07-25] MEDS: fentaNYL 100 MCG/2 ML VIAL IVP PRN ×5 (00:39→07:07)
[2018-07-25] MEDS ORDERED: fentaNYL 100 MCG/2 ML VIAL ONE (00:39)
[2018-07-25] MEDS: LACTATED RINGERS 1,000 ML IV SCH ×3 (00:42→15:36)
[2018-07-25] MEDS ORDERED: LACTATED RINGERS 1,000 ML IV ONE (00:42)
[2018-07-25] MEDS: SODIUM CHLORIDE FLUSH 0.9% 10 ML SYRINGE IVP PRN ×2 (01:41→13:38)
--- NOTE | 2018-07-25 01:55 | PROVIDER PROGRESS NOTE ---
Subjective - Prog Note Date Prog Note Date: 07/25/18 (TALCER STAFF) Prog Note Time: 01:48 - Subjective Subjective: Called at home by RN due to patient having increased pain requesting fentanyl and also possibility of feeling digits/hand at time of cerivical exam with membranes still intact, head still palpable per RN. Cervidil removed by RN at 0033 hours. I arrived at hospital at 0120 hours and found patient sitting up in bed breathing through contractions in mod distress due to pain, having received 150 micrograms of fentanyl for pain up to this point, 100 micrograms last hour, Category I tracing with contractions q3 min. Cx exam by me at 0125 hours /- 1/VTX/BOWI with NO hand or other abnormal presentation. Patient offered IV fentanyl vs nitrous oxide and epidural and requests fentanyl. An additional 100 micrograms fentanyl given and patient now more comfortable and resting. Objective - Vital Signs/Intake & Output Vital Signs: Vital Signs x48h Temp Pulse Resp BP Pulse Ox 07/24/18 21:28 36.8 C 81 18 115/54 L 99 - Lab Results Fish Bones: 07/24/18 18:10 Other Labs: Lab Results x24hrs 07/24/18 07/24/18 Range/Units 18:24 18:10 WBC 10.6 (4.8-10.8) x10^3/uL RBC 3.19 L (4.20-5.40) 10^6/uL Hgb 10.4 L (12.0-16.0) g/dL Hct 29.8 L (37.0-47.0) % MCV 93.3 (81.0-99.0) fL MCH 32.6 H (27.0-31.0) pg MCHC 35.0 (32.0-36.0) g/dL RDW 13.8 (12.0-15.0) % Plt Count 290 (130-450) 10^3/uL MPV 6.5 L (7.9-10.8) fL Neut # (Auto) 7.5 H (1.5-6.6) 10^3/uL Lymph # (Auto) 1.8 (1.5-3.5) 10^3/uL [place] # (Auto) 1.2 H (0.0-1.0) 10^3/uL Eos # (Auto) 0.1 (0.0-0.7) 10^3/uL Baso # (Auto) 0.0 (0.0-0.1) 10^3/uL Absolute Nucleated RBC 0.00 x10^3/uL Nucleated RBC % 0.0 /100WBC Blood Type O POSITIVE Antibody Screen NEGATIVE - Other Results/Comments Other Results/Comments: CX 2/70/-1/BOWI/VTX at 0125 hours Category I tracing Contractions q2-3 min Assessment/Plan - Problem List (2) Prolonged latent phase of labor Impression: # Fentanyl prn pain during latent labor. # Cervidil out at 0033 hours # Continue present care.
[2018-07-25] MEDS ORDERED: OXYTOCIN/SODIUM CHLORIDE 500 ML IV SCH (07:00)
--- NOTE | 2018-07-25 07:01 | PROVIDER PROGRESS NOTE ---
Subjective - Prog Note Date Prog Note Date: 07/25/18 (BETTING AGENCY COUNTER CLERK STAFF) Prog Note Time: 06:58 - Subjective Subjective: Patient with Category I tracing, mild contractions q3-4 mins. Cx exam //mid/soft. AROM clear at 0638 followed by IUPC placement. Will start pitocin augmentation now. Patient requesting IV fentanyl now. She states will probably request epidural later today. Objective - Lab Results Fish Bones: 07/24/18 18:10 Other Labs: Lab Results x24hrs 07/24/18 07/24/18 Range/Units 18:24 18:10 WBC 10.6 (4.8-10.8) x10^3/uL RBC 3.19 L (4.20-5.40) 10^6/uL Hgb 10.4 L (12.0-16.0) g/dL Hct 29.8 L (37.0-47.0) % MCV 93.3 (81.0-99.0) fL MCH 32.6 H (27.0-31.0) pg MCHC 35.0 (32.0-36.0) g/dL RDW 13.8 (12.0-15.0) % Plt Count 290 (130-450) 10^3/uL MPV 6.5 L (7.9-10.8) fL Neut # (Auto) 7.5 H (1.5-6.6) 10^3/uL Lymph # (Auto) 1.8 (1.5-3.5) 10^3/uL [place] # (Auto) 1.2 H (0.0-1.0) 10^3/uL Eos # (Auto) 0.1 (0.0-0.7) 10^3/uL Baso # (Auto) 0.0 (0.0-0.1) 10^3/uL Absolute Nucleated RBC 0.00 x10^3/uL Nucleated RBC % 0.0 /100WBC Blood Type O POSITIVE Antibody Screen NEGATIVE Assessment/Plan - Problem List (2) Prolonged latent phase of labor Impression: Plan: AROM Clear @ 0638 Cx /-1/VTX Start Pitocin augmentation Fentanyl prn up to 8 cm dilation.
[2018-07-25] MEDS ORDERED: fent/BUPIV 2 MCG/0.125% 250 ML EP ONE (08:29)
--- NOTE | 2018-07-25 08:31 | ANESTHESIA ---
Pre-Anesthesia VS, & Labs - Diagnosis desires labor epidural - Procedure labor epidural Vital Signs: Temp Pulse Resp BP Pulse Ox 36.8 C 81 18 115/54 L 99 07/24/18 21:28 07/24/18 21:28 07/24/18 21:28 07/24/18 21:28 07/24/18 21:28 Height 5 ft 1 in Weight (kg) 125 kg Body Mass Index 23.2 - NPO Other (clears from now until delivery) - Is Patient ?: Yes - Lab Results Current Lab Results: Laboratory Tests 07/24/18 18:24: Blood Type O POSITIVE, Antibody Screen NEGATIVE 07/24/18 18:10: WBC 10.6, RBC 3.19 L, Hgb 10.4 L, Hct 29.8 L, MCV 93.3, MCH 32.6 H, MCHC 35.0, RDW 13.8, Plt Count 290, MPV 6.5 L, Neut # (Auto) 7.5 H, Lymph # (Auto) 1.8, [place] # (Auto) 1.2 H, Eos # (Auto) 0.1, Baso # (Auto) 0.0, Absolute Nucleated RBC 0.00, Nucleated RBC % 0.0 Fish Bones: 07/24/18 18:10 Home Medications and Allergies Active Medications Bupropion HCl (Wellbutrin Xl) 150 mg PO DAILY [facility] Last Admin: 07/24/18 21:58 Dose: 150 mg Fentanyl (Fentanyl) 50 mcg IVP Q1H PRN PRN Reason: Moderate PAIN Last Admin: 07/25/18 07:07 Dose: 50 mcg Fentanyl (Fentanyl) 100 mcg IVP Q1H PRN PRN Reason: Severe Pain Last Admin: 07/25/18 02:42 Dose: 100 mcg Hydroxyzine Pamoate (Vistaril) 25 mg PO QPM PRN PRN Reason: Insomnia Last Admin: 07/24/18 21:58 Dose: 25 mg Lactated Ringer's (Lr) 1,000 mls @ 100 mls/hr IV .Q10H SANTINO Last Infusion: 07/25/18 07:11 Dose: 99 mls/hr Oxytocin/Sodium Chloride (Pitocin/Sodium Chloride) 500 mls @ 1 mls/hr IV TITR SANTINO; Protocol Last Admin: 07/25/18 07:10 Dose: 1 milliunit/min, 1 mls/hr Ondansetron HCl (Zofran Inj) 4 mg IVP Q4HR PRN PRN Reason: Nausea / Vomiting Sodium Chloride (Normal Saline Flush 0.9%) 10 ml IVP 0100,0900,1700 SANTINO Sodium Chloride (Normal Saline Flush 0.9%) 10 ml IVP PRN PRN PRN Reason: NEEDED PER PROVIDER ORDERS Last Admin: 07/25/18 01:41 Dose: 10 ml Pnv95/Ferrous Fumarate/FA [ Vitamin Tablet] 11/29/17 Allergies/Adverse Reactions: Allergies Allergy/AdvReac Type Severity Reaction Status Date / Time No Known Drug Allergies Allergy Verified 02/21/18 11:13 Anes History & Medical History - Anesthetic History Anesthesia Complications: reports: No previous complications - Medical History Cardiovascular: reports: None Pulmonary: reports: None Gastrointestinal: reports: None Urinary: reports: None Neuro: reports: None Musculoskeletal: reports: None Endocrine/Autoimmune: reports: None Skin: reports: None Smoking Status: Former smoker - Surgical History General: Appendectomy Exam General: Alert Dental: WNL, Poor dentition Mouth Opening: Greater than 4 Fingerbreadths Neck Mobility: Normal Mallampati classification: II Thyromental Distance: greater than 6 cm Respiratory: Lungs clear Cardiovascular: Regular rate Plan Anesthesia Type: Epidural Consent for Procedure(s) Verified and Reviewed: Yes Code Status: Attempt Resuscitation ASA classification: 2-Mild systemic disease Is this case an emergency?: No
[2018-07-25] MEDS ORDERED: diphenhydrAMINE INJ 50 MG/ML VIAL IVP PRN (09:22)
[2018-07-25] MEDS ORDERED: LACTATED RINGERS 500 ML IV ONE (09:22)
[2018-07-25] MEDS ORDERED: ePHEDrine 50 MG/ML VIAL IVP PRN (09:22)
[2018-07-25] MEDS ORDERED: NALBUPHINE 10 MG/ML AMP IVP PRN (09:22)
[2018-07-25] MEDS ORDERED: ONDANSETRON 4 MG/2 ML VIAL IVP PRN (09:22)
[2018-07-25] MEDS ORDERED: fent/BUPIV 2 MCG/0.125% 250 ML EP PRN (09:22)
[2018-07-25] MEDS ORDERED: NALOXONE 0.4 MG/ML VIAL IVP PRN (09:22)
[2018-07-25] MEDS ORDERED: ROPIVACAINE 0.2% PF 20 ML AMPULE ONE ×2 (09:23→18:25)
[2018-07-25] MEDS: SODIUM CHLORIDE FLUSH 0.9% 10 ML SYRINGE IVP SCH (09:43)
--- NOTE | 2018-07-25 11:43 | PROVIDER PROGRESS NOTE ---
Subjective - Prog Note Date Prog Note Date: 07/25/18 (CAN DOFFER STAFF) Prog Note Time: 11:00 - Subjective Pt reports feeling: Improved (Patient now has epidural and palacios. Intermittently adequate on contractions, currently 135 MVU on 4 mIU pitocin. Cx @ 1055 hours. Category I Tracing.) Objective - Vital Signs/Intake & Output Intake & Output: Intake & Output 07/22/18 07/23/18 07/24/18 07/25/18 23:59 23:59 23:59 23:59 Intake Total 904.083 Output Total 450 Balance 454.083 - Lab Results Fish Bones: 07/24/18 18:10 Other Labs: Lab Results x24hrs 07/24/18 07/24/18 Range/Units 18:24 18:10 WBC 10.6 (4.8-10.8) x10^3/uL RBC 3.19 L (4.20-5.40) 10^6/uL Hgb 10.4 L (12.0-16.0) g/dL Hct 29.8 L (37.0-47.0) % MCV 93.3 (81.0-99.0) fL MCH 32.6 H (27.0-31.0) pg MCHC 35.0 (32.0-36.0) g/dL RDW 13.8 (12.0-15.0) % Plt Count 290 (130-450) 10^3/uL MPV 6.5 L (7.9-10.8) fL Neut # (Auto) 7.5 H (1.5-6.6) 10^3/uL Lymph # (Auto) 1.8 (1.5-3.5) 10^3/uL [place] # (Auto) 1.2 H (0.0-1.0) 10^3/uL Eos # (Auto) 0.1 (0.0-0.7) 10^3/uL Baso # (Auto) 0.0 (0.0-0.1) 10^3/uL Absolute Nucleated RBC 0.00 x10^3/uL Nucleated RBC % 0.0 /100WBC Blood Type O POSITIVE Antibody Screen NEGATIVE Assessment/Plan - Problem List (4) Active labor Impression: Active labor at /-1 on 4 MIU pitocin Continue augmentation of labor to maintain adequate contractions.
[2018-07-25] MEDS: buPROPion XL 150 MG TABLET PO SCH (12:40)
--- NOTE | 2018-07-25 18:11 | PROVIDER PROGRESS NOTE ---
Subjective - Prog Note Date Prog Note Date: 07/25/18 Prog Note Time: 16:05 - Subjective Subjective: 5/80/0 AT 1602. CATEGORY 1 ON 9 MIU. Objective - Vital Signs/Intake & Output Intake & Output: Intake & Output 07/22/18 07/23/18 07/24/18 07/25/18 23:59 23:59 23:59 23:59 Intake Total 1481.583 Output Total 450 Balance 1031.583 - Lab Results Fish Bones: 07/24/18 18:10 Other Labs: Lab Results x24hrs 07/24/18 07/24/18 Range/Units 18:24 18:10 WBC 10.6 (4.8-10.8) x10^3/uL RBC 3.19 L (4.20-5.40) 10^6/uL Hgb 10.4 L (12.0-16.0) g/dL Hct 29.8 L (37.0-47.0) % MCV 93.3 (81.0-99.0) fL MCH 32.6 H (27.0-31.0) pg MCHC 35.0 (32.0-36.0) g/dL RDW 13.8 (12.0-15.0) % Plt Count 290 (130-450) 10^3/uL MPV 6.5 L (7.9-10.8) fL Neut # (Auto) 7.5 H (1.5-6.6) 10^3/uL Lymph # (Auto) 1.8 (1.5-3.5) 10^3/uL [place] # (Auto) 1.2 H (0.0-1.0) 10^3/uL Eos # (Auto) 0.1 (0.0-0.7) 10^3/uL Baso # (Auto) 0.0 (0.0-0.1) 10^3/uL Absolute Nucleated RBC 0.00 x10^3/uL Nucleated RBC % 0.0 /100WBC Blood Type O POSITIVE Antibody Screen NEGATIVE
--- NOTE | 2018-07-25 20:35 | PROVIDER PROGRESS NOTE ---
Subjective - Prog Note Date Prog Note Date: 07/25/18 (PRESIDING JUDGE) Prog Note Time: 20:33 - Subjective Subjective: 8/C/0 at 2030. Pitocin at 9 miU. Category 1 FHR tracing. Objective - Vital Signs/Intake & Output Intake & Output: Intake & Output 07/22/18 07/23/18 07/24/18 07/25/18 23:59 23:59 23:59 23:59 Intake Total 1481.583 Output Total 450 Balance 1031.583 - Lab Results Fish Bones: 07/24/18 18:10 Assessment/Plan - Problem List (5) Active labor Impression: Continue present care.
--- NOTE | 2018-07-25 21:08 | PROVIDER PROGRESS NOTE ---
Subjective - Prog Note Date Prog Note Date: 07/25/18 (DOSIER OPERATOR) Prog Note Time: 21:06 - Subjective Subjective: 8/C/0 at 9 miU pitocin with category I tracing. 175-200 MVU. Will increase to 10 miU. Objective - Vital Signs/Intake & Output Intake & Output: Intake & Output 07/22/18 07/23/18 07/24/18 07/25/18 23:59 23:59 23:59 23:59 Intake Total 2000.333 Output Total 450 Balance 1551.333 - Lab Results Fish Bones: 07/24/18 18:10 Assessment/Plan - Problem List (5) Active labor Impression: As above.
[2018-07-25 22:23] LABS: BASOPHILS % (AUTO) 0.1 %; EOSINOPHILS % (AUTO) 0.1 %; HGB - HEMOGLOBIN 10.1 g/dL (12.0-16.0); LYMPHOCYTES # (AUTO) 0.7 10^3/uL (1.5-3.5); LYMPHOCYTES % (AUTO) 4.3 %; MEAN CORPUSCULAR HEMOGLOBIN 31.8 pg (27.0-31.0); MEAN CORPUSCULAR HGB CONC 33.3 g/dL (32.0-36.0); MEAN CORPUSCULAR VOLUME 95.5 fL (81.0-99.0); MEAN PLATELET VOLUME 6.2 fL (7.9-10.8); MONOCYTES # (AUTO) 0.4 10^3/uL (0.0-1.0); MONOCYTES % (AUTO) 2.9 %; NEUTROPHILS # (AUTO) 13.9 10^3/uL (1.5-6.6); NEUTROPHILS % (AUTO) 92.6 %; PLT - PLATELET COUNT 217 10^3/uL (130-450); RED BLOOD COUNT 3.16 10^6/uL (4.20-5.40)
[2018-07-25] MEDS ORDERED: AMPICILLIN 2 GM in SODIUM CHLORIDE 0.9% MINIBAG 100 ML IV SCH (23:00)
[2018-07-25] MEDS ORDERED: GENTAMICIN PER PHARMACY IV SCH (23:00)
[2018-07-25] MEDS ORDERED: SODIUM CHLORIDE 0.9% IV SCH (23:00)
[2018-07-25] MEDS ORDERED: LIDOCAINE-MPF 1% 30 ML VIAL ONE (23:12)
[2018-07-26] MEDS ORDERED: GENTAMICIN 120 MG in SODIUM CHLORIDE 0.9% 100ML 100 ML IV SCH ×2
[2018-07-26] MEDS ORDERED: WITCH HAZEL/GLYCERIN 1 EACH MED..PAD TOP PRN (01:11)
[2018-07-26] MEDS ORDERED: oxyCODONE 5 MG TABLET PO PRN (01:11)
[2018-07-26] MEDS ORDERED: HYDROCORTISONE 1% CREAM 28 GM TUBE PR PRN (01:11)
[2018-07-26] MEDS ORDERED: METHYLERGONOVINE 0.2 MG/ML AMP IM PRN (01:11)
--- NOTE | 2018-07-26 01:32 | PROVIDER PROGRESS NOTE ---
Subjective - Prog Note Date Prog Note Date: 07/26/18 (MANAGER WATER WASTEWATER) Prog Note Time: 01:22 - Subjective Pt reports feeling: Improved Subjective: DELIVERY NOTE: OUTLET VACUUM: 4/5+ STATION POSITION: NEEMA, NO ROTATION ANS: EPIDURAL INDICATION: NRFHR AND MATERNAL EXHAUSTION DEVICE: KIWI COMENTS: Patient progressed to C/C/+2 at 2315. She had dx of IAI (intra-amniotic infection approx. 30 minutes prior to C/C/+2 based on maternal temp 38.0 and maternal tachycardia, then eventually tachycardia into 160s-170s. She was started on amp 2 GM and gent 115 MG (2 mg/kg loading dose). Both amp and gent infused prior to delivery of infant. Peds called and present for delivery. After gent dose infused, patient was at C/C/+4 and delivered via outlet vacuum at 0019 hours viable female infant with 3/6/9, over 2nd degree perineal lac with BL PUL. Placenta delivered at 0023. IV pitocins rapid infusion was started and uterus firmed up well. PUL repaired with combination of running 3-0 vicryl and 3-0 monocryl. 2nd degree perineal lac repaired with running 3-0 vicryl. No cervical or other vaginal lacerations noted at time of inspection of canal. EBL 400 mL. Both mother and baby doing well. Maternal temp 37.2. Patient to get 2nd dose of amp at 0500 and 2nd and last dose of gent 75 mg (1.5 mg/kg) at 0730. CBC at 0500 today. Otherwise routine orders. Objective - Vital Signs/Intake & Output Intake & Output: Intake & Output 07/23/18 07/24/18 07/25/18 07/26/18 23:59 23:59 23:59 23:59 Intake Total 2000.333 Output Total 450 Balance 1551.333 - Lab Results Fish Bones: 07/25/18 22:18 Other Labs: Lab Results x24hrs 07/25/18 Range/Units 22:18 WBC 15.0 H (4.8-10.8) x10^3/uL RBC 3.16 L (4.20-5.40) 10^6/uL Hgb 10.1 L (12.0-16.0) g/dL Hct 30.2 L (37.0-47.0) % MCV 95.5 (81.0-99.0) fL MCH 31.8 H (27.0-31.0) pg MCHC 33.3 (32.0-36.0) g/dL RDW 14.0 (12.0-15.0) % Plt Count 217 (130-450) 10^3/uL MPV 6.2 L (7.9-10.8) fL Neut # (Auto) 13.9 H (1.5-6.6) 10^3/uL Lymph # (Auto) 0.7 L (1.5-3.5) 10^3/uL [place] # (Auto) 0.4 (0.0-1.0) 10^3/uL Eos # (Auto) 0.0 (0.0-0.7) 10^3/uL Baso # (Auto) 0.0 (0.0-0.1) 10^3/uL Absolute Nucleated RBC 0.01 x10^3/uL Nucleated RBC % 0.0 /100WBC Assessment/Plan - Problem List (6) care following vaginal delivery Impression: See above.
[2018-07-26] MEDS: buPROPion XL 150 MG TABLET PO SCH ×2 (02:51→22:08)
[2018-07-26] MEDS: ACETAMINOPHEN 500 MG TABLET PO PRN ×3 (02:51→22:07)
[2018-07-26] MEDS: IBUPROFEN 800 MG TABLET PO PRN ×3 (02:51→22:07)
[2018-07-26] MEDS: LACTATED RINGERS 1,000 ML IV SCH (03:10)
[2018-07-26] MEDS ORDERED: AMPICILLIN 2 GM in SODIUM CHLORIDE 0.9% MINIBAG 100 ML IV SCH (05:00)
[2018-07-26 06:47] LABS: HGB - HEMOGLOBIN 7.6 g/dL (12.0-16.0); LYMPHOCYTES % (AUTO) 1.7 %; MEAN CORPUSCULAR HEMOGLOBIN 31.2 pg (27.0-31.0); MEAN CORPUSCULAR HGB CONC 32.9 g/dL (32.0-36.0); MEAN CORPUSCULAR VOLUME 94.7 fL (81.0-99.0); MEAN PLATELET VOLUME 6.6 fL (7.9-10.8); NEUTROPHILS % (AUTO) 93.3 %; PLT - PLATELET COUNT 212 10^3/uL (130-450); RED BLOOD COUNT 2.43 10^6/uL (4.20-5.40); RED CELL DISTRIBUTION WIDTH 13.8 % (12.0-15.0)
[2018-07-26 06:57] LABS: WHITE BLOOD COUNT 36.1 x10^3/uL (4.8-10.8)
[2018-07-26 06:58] LABS: ABNORMAL LYMPHS % (MANUAL) 0 %; LYMPHOCYTES % (MANUAL) 0 %
[2018-07-26] MEDS ORDERED: SODIUM CHLORIDE 0.9% IV SCH (07:30)
[2018-07-26] MEDS ORDERED: GENTAMICIN PER PHARMACY 80 MG in SODIUM CHLORIDE 0.9% 100ML 100 ML IV SCH (07:30)
[2018-07-26] MEDS ORDERED: GENTAMICIN IV SCH (07:30)
[2018-07-26 07:31] LABS: BAND NEUTROPHILS % (MANUAL) 21 %; METAMYELOCYTES % (MANUAL) 1 %; MONOCYTES # (MANUAL) 1.1 10^3/uL (0.0-1.0); NEUTROPHILS # (MANUAL) 34.7 10^3/uL (1.5-6.6); NEUTROPHILS % (MANUAL) 75 %
[2018-07-26 07:32] LABS: DIFFERENTIAL COMMENT MANUAL DIFFERENTIAL; RBC MORPHOLOGY (MULTIPLE) 2+ ANISOCYTOSIS (NORMAL)
[2018-07-26] MEDS: DOCUSATE SODIUM 100 MG CAPSULE PO SCH ×2 (09:26→22:08)
[2018-07-26] MEDS: SIMETHICONE CHEW 80 MG TABLET PO SCH ×2 (09:26→17:49)
--- NOTE | 2018-07-26 11:20 | ANESTHESIA POST OP EVALUATION ---
Anesthesia Post Eval - Post Anesthesia Eval CV Function Including HR & BP: positive: Stable : : : Pain Control: positive: Adequate Nausea & Vomiting: positive: Negative : Mental Status: positive: Appropriate Anesthesia Complications: positive: None - Other Details/Therapies Other Details/Therapies: Patient reports her epidural worked well during labor/delivery. Denies headache. Right leg remains numb. Denies any other symptoms. Will follow up again tomorrow.
--- NOTE | 2018-07-26 14:35 | PROVIDER PROGRESS NOTE ---
Subjective - Prog Note Date Prog Note Date: 07/26/18 (MEDICARE SALES EXECUTIVE STAFF) Prog Note Time: 14:33 - Subjective Pt reports feeling: Improved (Patient feels much better . Second round of AMP and GENT for IAI completed. Patient eating regular food in bed.) Objective - Vital Signs/Intake & Output Reviewed Vital Signs: Yes Vital Signs: Vital Signs x48h Temp Pulse Resp BP Pulse Ox 07/26/18 12:42 36.6 C 88 18 115/66 99 07/26/18 08:00 36.8 C 100 18 116/71 99 Intake & Output: Intake & Output 07/23/18 07/24/18 07/25/18 07/26/18 23:59 23:59 23:59 23:59 Intake Total 2001.333 Output Total 450 1150 Balance 1551.333 -1150 - Objective General Appearance: positive: No acute distress Abdomen: positive: Non-tender, No organomegaly, Other (UX FIRM U-4 AND NT, = NORMAL LOCHIA) Back: positive: Nml inspection Skin: positive: Color nml, No rash, Warm Extremities: positive: Non-tender, Full ROM, No pedal edema - Lab Results Fish Bones: 07/26/18 06:15 Other Labs: Lab Results x24hrs 07/26/18 07/25/18 Range/Units 06:15 22:18 WBC 36.1 H* 15.0 H (4.8-10.8) x10^3/uL RBC 2.43 L 3.16 L (4.20-5.40) 10^6/uL Hgb 7.6 L 10.1 L (12.0-16.0) g/dL Hct 23.0 L 30.2 L (37.0-47.0) % MCV 94.7 95.5 (81.0-99.0) fL MCH 31.2 H 31.8 H (27.0-31.0) pg MCHC 32.9 33.3 (32.0-36.0) g/dL RDW 13.8 14.0 (12.0-15.0) % Plt Count 212 217 (130-450) 10^3/uL MPV 6.6 L 6.2 L (7.9-10.8) fL Neut # (Auto) Not Reportable 13.9 H (1.5-6.6) 10^3/uL Lymph # (Auto) Not Reportable 0.7 L (1.5-3.5) 10^3/uL [place] # (Auto) Not Reportable 0.4 (0.0-1.0) 10^3/uL Eos # (Auto) Not Reportable 0.0 (0.0-0.7) 10^3/uL Baso # (Auto) Not Reportable 0.0 (0.0-0.1) 10^3/uL Absolute Nucleated RBC Not Reportable 0.01 x10^3/uL Total Counted 100 Band Neuts % (Manual) 21 H (0 - 10) % Abnorm Lymph % (Manual) 0 % Metamyelocytes % 1 H ( - 0) % Nucleated RBC % Not Reportable 0.0 /100WBC Neutrophils # (Manual) 34.7 H (1.5-6.6) 10^3/uL Lymphocytes # (Manual) 0.0 L (1.5-3.5) 10^3/uL Monocytes # (Manual) 1.1 H (0.0-1.0) 10^3/uL Eosinophils # (Manual) 0.0 (0-0.7) 10^3/uL Basophils # (Manual) 0.0 (0-0.1) 10^3/uL Differential Comment MANUAL DIFFERENTIAL RBC Morph Micro Appear 2+ ANISOCYTOSIS (NORMAL) Assessment/Plan - Problem List (6) care following vaginal delivery Impression: # PPD 1 S/P OUTLET VACUUM ASSISTED VAGINAL DELIVERY DOING WELL OVERALL. # IAI JUST PRIOR TO DELIVERY, COMPLETED ROUND 1 OF AMP/GENT JUST BEFORE DELIVERY, WITH SECOND AND LAST ROUND COMPLETED. WBC 36,000, PATIENT AFEBRILE. CLINICALLY PATIENT DOING WELL. WILL REPEAT CBC TOMORROW AM TO CHECK WBC TREND. # MATERNAL ANEMIA: START BID FE # SALINE LOCK # ROUTINE CARE OTHERWISE.
[2018-07-26] MEDS: FERROUS SULFATE 325 MG TABLET PO SCH (17:49)
[2018-07-27 06:26] LABS: BASOPHILS % (AUTO) 0.1 %; LYMPHOCYTES % (AUTO) 3.1 %; MEAN CORPUSCULAR HEMOGLOBIN 31.5 pg (27.0-31.0); MEAN CORPUSCULAR HGB CONC 32.9 g/dL (32.0-36.0); MEAN CORPUSCULAR VOLUME 95.9 fL (81.0-99.0); MEAN PLATELET VOLUME 6.6 fL (7.9-10.8); MONOCYTES % (AUTO) 6.5 %; NEUTROPHILS % (AUTO) 90.3 %; PLT - PLATELET COUNT 215 10^3/uL (130-450); RED BLOOD COUNT 2.04 10^6/uL (4.20-5.40); RED CELL DISTRIBUTION WIDTH 14.2 % (12.0-15.0)
[2018-07-27 06:33] LABS: HGB - HEMOGLOBIN 6.4 g/dL (12.0-16.0); WHITE BLOOD COUNT 41.7 x10^3/uL (4.8-10.8)
[2018-07-27 06:34] LABS: ABNORMAL LYMPHS % (MANUAL) 0 %
[2018-07-27 06:47] LABS: BAND NEUTROPHILS % (MANUAL) 20 %; DIFFERENTIAL COMMENT MANUAL DIFFERENTIAL; LYMPHOCYTES # (MANUAL) 3.3 10^3/uL (1.5-3.5); LYMPHOCYTES % (MANUAL) 8 %; METAMYELOCYTES % (MANUAL) 1 %; MONOCYTES # (MANUAL) 1.3 10^3/uL (0.0-1.0); MYELOCYTES % (MANUAL) 1 %; NEUTROPHILS # (MANUAL) 36.3 10^3/uL (1.5-6.6); NEUTROPHILS % (MANUAL) 67 %; PLATELET ESTIMATE, MANUAL NORMAL (130-450,000) (NORMAL); RBC MORPHOLOGY (MULTIPLE) NORMAL APPEARANCE (NORMAL)
[2018-07-27] MEDS ORDERED: PIPERACILLIN/TAZOBACTAM 4.5 GM in SODIUM CHLORIDE 0.9% MINIBAG 100 ML IV ONE (08:30)
[2018-07-27] MEDS ORDERED: SODIUM CHLORIDE FLUSH 0.9% 10 ML SYRINGE ONE ×3 (08:44→17:21)
[2018-07-27] MEDS: LACTATED RINGERS 1,000 ML IV SCH (08:55)
[2018-07-27] MEDS: SODIUM CHLORIDE FLUSH 0.9% 10 ML SYRINGE IVP SCH (08:57)
[2018-07-27 09:24] LABS: ALBUMIN 2.2 g/dL (3.2-5.5); ALBUMIN/GLOBULIN RATIO 0.7 (1.0-2.2); BILIRUBIN,TOTAL 0.3 mg/dL (0.2-1.0); CALCIUM 8.7 mg/dL (8.5-10.3); CREATININE 0.5 mg/dL (0.4-1.0); TOTAL PROTEIN 5.3 g/dL (6.7-8.2)
[2018-07-27] MEDS: IBUPROFEN 800 MG TABLET PO PRN (09:50)
[2018-07-27] MEDS: DOCUSATE SODIUM 100 MG CAPSULE PO SCH ×2 (09:50→21:37)
[2018-07-27] MEDS: FERROUS SULFATE 325 MG TABLET PO SCH ×2 (09:50→17:32)
[2018-07-27] MEDS ORDERED: diphenhydrAMINE INJ 50 MG/ML VIAL IVP PRN (10:30)
[2018-07-27] MEDS ORDERED: PROMETHAZINE INJ 25 MG in SODIUM CHLORIDE 0.9% 50 ML IV ONE (10:30)
--- NOTE | 2018-07-27 10:33 | PROVIDER PROGRESS NOTE ---
Subjective - Prog Note Date Prog Note Date: 07/27/18 (PRICE E[employer]OMIST) Prog Note Time: 10:33 - Subjective Pt reports feeling: Improved (Patient feels a little tired, but otherwise feels fine. She is ambulating, tolerating regular diet. Patient's WBC increased again today to 41K despite being afebrile and non orthostatic/hypotensive.) Objective - Vital Signs/Intake & Output Reviewed Vital Signs: Yes Vital Signs: Vital Signs x48h Temp Pulse Resp BP BP Pulse Ox 07/27/18 07:24 36.7 C 86 20 128/70 98 07/27/18 03:30 36.6 C 98 18 136/72 H 100 Intake & Output: Intake & Output 07/24/18 07/25/18 07/26/18 07/27/18 23:59 23:59 23:59 23:59 Intake Total 2001.333 1000 Output Total 450 1150 Balance 1551.333 -150 - Objective General Appearance: positive: No acute distress, Alert Eyes Bilateral: positive: Normal inspection ENT: positive: ENT inspection nml, Pharynx nml, No signs of dehydration Neck: positive: Nml inspection, Thyroid nml, No JVD Respiratory: positive: Chest non-tender, No respiratory distress, Breath sounds nml Cardiovascular: positive: Regular rate & rhythm, No murmur Abdomen: positive: Other (Uterus at U-4 and minimal ux discomfort with deep palpation) Back: positive: Nml inspection, CVA tenderness (R) Skin: positive: Color nml, No rash Extremities: positive: Non-tender, Full ROM Comments/Other: Breast Exam: No masses, no erythema or lymphadenopathy. No evidence of mastitis. - Lab Results Fish Bones: 07/27/18 05:52 07/27/18 09:05 Other Labs: Lab Results x24hrs 07/27/18 07/27/18 07/27/18 Range/Units 09:05 09:05 07:34 WBC (4.8-10.8) x10^3/uL RBC (4.20-5.40) 10^6/uL Hgb (12.0-16.0) g/dL Hct (37.0-47.0) % MCV (81.0-99.0) fL MCH (27.0-31.0) pg MCHC (32.0-36.0) g/dL RDW (12.0-15.0) % Plt Count (130-450) 10^3/uL MPV (7.9-10.8) fL Neut # (Auto) Lymph # (Auto) [place] # (Auto) Eos # (Auto) Baso # (Auto) Absolute Nucleated RBC Total Counted Band Neuts % (Manual) (0 - 10) % Abnorm Lymph % (Manual) % Metamyelocytes % ( - 0) % Myelocytes % ( - 0) % Nucleated RBC % Neutrophils # (Manual) (1.5-6.6) 10^3/uL Lymphocytes # (Manual) (1.5-3.5) 10^3/uL Monocytes # (Manual) (0.0-1.0) 10^3/uL Eosinophils # (Manual) (0-0.7) 10^3/uL Basophils # (Manual) (0-0.1) 10^3/uL Differential Comment Platelet Estimate (NORMAL) RBC Morph Micro Appear (NORMAL) Sodium 138 (135-145) mmol/L Potassium 3.2 L (3.5-5.0) mmol/L Chloride 106 (101-111) mmol/L Carbon Dioxide 21 (21-32) mmol/L Anion Gap 11.0 (6-13) BUN 9 (6-20) mg/dL Creatinine 0.5 (0.4-1.0) mg/dL Estimated GFR (MDRD) 157 (>89) Glucose 132 H (70-100) mg/dL Lactic Acid 1.7 (0.5-2.2) mmol/L Calcium 8.7 (8.5-10.3) mg/dL Total Bilirubin 0.3 (0.2-1.0) mg/dL AST 27 (10-42) IU/L ALT 12 (10-60) IU/L Alkaline Phosphatase 92 (42-121) IU/L Total Protein 5.3 L (6.7-8.2) g/dL Albumin 2.2 L (3.2-5.5) g/dL Globulin 3.1 (2.1-4.2) g/dL Albumin/Globulin Ratio 0.7 L (1.0-2.2) Blood Type Cancelled Antibody Screen Cancelled Crossmatch IS Only See Detail 07/27/18 07/27/18 Range/Units 07:34 05:52 WBC 41.7 H* (4.8-10.8) x10^3/uL RBC 2.04 L (4.20-5.40) 10^6/uL Hgb 6.4 L* (12.0-16.0) g/dL Hct 19.5 L* (37.0-47.0) % MCV 95.9 (81.0-99.0) fL MCH 31.5 H (27.0-31.0) pg MCHC 32.9 (32.0-36.0) g/dL RDW 14.2 (12.0-15.0) % Plt Count 215 (130-450) 10^3/uL MPV 6.6 L (7.9-10.8) fL Neut # (Auto) Not Reportable Lymph # (Auto) Not Reportable [place] # (Auto) Not Reportable Eos # (Auto) Not Reportable Baso # (Auto) Not Reportable Absolute Nucleated RBC Not Reportable Total Counted 100 Band Neuts % (Manual) 20 H (0 - 10) % Abnorm Lymph % (Manual) 0 % Metamyelocytes % 1 H ( - 0) % Myelocytes % 1 H ( - 0) % Nucleated RBC % Not Reportable Neutrophils # (Manual) 36.3 H (1.5-6.6) 10^3/uL Lymphocytes # (Manual) 3.3 (1.5-3.5) 10^3/uL Monocytes # (Manual) 1.3 H (0.0-1.0) 10^3/uL Eosinophils # (Manual) 0.0 (0-0.7) 10^3/uL Basophils # (Manual) 0.0 (0-0.1) 10^3/uL Differential Comment MANUAL DIFFERENTIAL Platelet Estimate NORMAL (130-450,000) (NORMAL) RBC Morph Micro Appear NORMAL APPEARANCE (NORMAL) Sodium (135-145) mmol/L Potassium (3.5-5.0) mmol/L Chloride (101-111) mmol/L Carbon Dioxide (21-32) mmol/L Anion Gap (6-13) BUN (6-20) mg/dL Creatinine (0.4-1.0) mg/dL Estimated GFR (MDRD) (>89) Glucose (70-100) mg/dL Lactic Acid (0.5-2.2) mmol/L Calcium (8.5-10.3) mg/dL Total Bilirubin (0.2-1.0) mg/dL AST (10-42) IU/L ALT (10-60) IU/L Alkaline Phosphatase (42-121) IU/L Total Protein (6.7-8.2) g/dL Albumin (3.2-5.5) g/dL Globulin (2.1-4.2) g/dL Albumin/Globulin Ratio (1.0-2.2) Blood Type O POSITIVE Antibody Screen NEGATIVE Crossmatch IS Only - Diagnostic Imaging Diagnostic Imaging Comments: Bedside US by me of uterus shows thin endometrial lining with no evidence of retained placental tissue. Assessment/Plan - Problem List (7) endometritis Impression: # PPD #2 S/P vacuum assisted vaginal delivery. # 2nd stage of labor complicated by IAI for which patient received AMP/GENT prior to delivery and 2nd dose then d/c'd. # Patient's only temp was 38.0 approx 2 hrs prior to delivery. Nonetheless, her WBC continues to rise (35K yesterday, 41K today). # Mild uterine tenderness is only finding on physical examination. US of Uterine cavity unremarkable as well. # CMP unremarkable. Lactic Acid 1.7 and patient clinical picture not consistent with sepsis. # Anemia Plan: 1) Patient started on broad spectrum ABX (Zosyn 4.5 gm loading then 3.375 q8h) for endometritis. 2) Hospitalist Dr. Amador consulted as well who recommended ABX and place in ICU if lactic acid elevated (Lactic Acid normal at 1.7 . Spoke with lab. 2.2 is considered elevated at this lab) 3) Transfuse 1 unit PRBC now for anemia. Recheck CBC at around 1800 hours, and qAM. 4) Patient understands condtion and all qeustions answered. FOB, patient's mother both in room and all questions answered.
[2018-07-27 11:55] LABS: BILIRUBIN,URINE NEGATIVE (NEGATIVE); GLUCOSE, URINE (UA) >=1000 mg/dL (NEGATIVE); KETONES,URINE (UA) TRACE mg/dL (NEGATIVE); LEUKOCYTE ESTERASE, URINE NEGATIVE (NEGATIVE); NITRITE,URINE NEGATIVE (NEGATIVE); OCCULT BLOOD,URINE TRACE-INTA (NEGATIVE); PROTEIN,URINE NEGATIVE (NEGATIVE); UROBILINOGEN,URINE 0.2 (NORMAL) E.U./dL (NORMAL)
[2018-07-27 12:01] LABS: CLARITY,URINE CLEAR (CLEAR)
[2018-07-27 12:09] LABS: BACTERIA,URINE Few /HPF (None Seen); RBC,URINE 0-5 /HPF (0-5); SQUAMOUS EPITHELIAL CELL,UR RARE Squamous (<= Few)
[2018-07-27 12:10] LABS: MUCUS,URINE Few Strands
[2018-07-27] MEDS ORDERED: SODIUM CHLORIDE 0.9% 500 ML IV ONE (12:37)
[2018-07-27] MEDS: ONDANSETRON 4 MG/2 ML VIAL IVP PRN ×2 (13:17→20:29)
[2018-07-27] MEDS: ACETAMINOPHEN 500 MG TABLET PO PRN ×2 (13:30→20:30)
[2018-07-27] MEDS: SIMETHICONE CHEW 80 MG TABLET PO SCH ×3 (16:23→21:37)
[2018-07-27] MEDS: PIPERACILLIN/TAZOBACTAM 3.375 GM in SODIUM CHLORIDE 0.9% MINIBAG 100 ML IV SCH (17:23)
[2018-07-27] MEDS: SODIUM CHLORIDE FLUSH 0.9% 10 ML SYRINGE IVP PRN (17:24)
[2018-07-27 19:11] LABS: EOSINOPHILS % (AUTO) 0.4 %; HGB - HEMOGLOBIN 7.4 g/dL (12.0-16.0); LYMPHOCYTES % (AUTO) 3.3 %; MEAN CORPUSCULAR HEMOGLOBIN 32.4 pg (27.0-31.0); MEAN CORPUSCULAR HGB CONC 34.1 g/dL (32.0-36.0); MEAN PLATELET VOLUME 6.9 fL (7.9-10.8); MONOCYTES % (AUTO) 4.9 %; NEUTROPHILS % (AUTO) 91.4 %; PLT - PLATELET COUNT 188 10^3/uL (130-450); RED BLOOD COUNT 2.29 10^6/uL (4.20-5.40); RED CELL DISTRIBUTION WIDTH 14.3 % (12.0-15.0)
[2018-07-27 19:16] LABS: WHITE BLOOD COUNT 37.1 x10^3/uL (4.8-10.8)
[2018-07-27 19:18] LABS: ABNORMAL LYMPHS % (MANUAL) 0 %
[2018-07-27 19:38] LABS: BAND NEUTROPHILS % (MANUAL) 6 %; DIFFERENTIAL COMMENT MANUAL DIFFERENTIAL; LYMPHOCYTES # (MANUAL) 0.7 10^3/uL (1.5-3.5); LYMPHOCYTES % (MANUAL) 2 %; MONOCYTES # (MANUAL) 2.6 10^3/uL (0.0-1.0); NEUTROPHILS # (MANUAL) 33.8 10^3/uL (1.5-6.6); NEUTROPHILS % (MANUAL) 85 %; PLATELET ESTIMATE, MANUAL NORMAL (130-450,000) (NORMAL); PLATELET MORPHOLOGY NORMAL APPEARANCE (NORMAL); RBC MORPHOLOGY (MULTIPLE) NORMAL APPEARANCE (NORMAL)
--- NOTE | 2018-07-27 20:52 | PROVIDER PROGRESS NOTE ---
Subjective - Prog Note Date Prog Note Date: 07/27/18 (FAMILY ADVOCATE) Prog Note Time: 20:50 - Subjective Pt reports feeling: Improved (Patient states feeling better, more energetic after 1st unit PRBCs.) Objective - Vital Signs/Intake & Output Reviewed Vital Signs: Yes Vital Signs: Vital Signs x48h Temp Pulse Pulse Resp BP BP Pulse Ox 07/27/18 20:39 36.7 C 67 16 117/60 07/27/18 20:10 36.7 C 64 16 112/65 98 07/27/18 17:15 36.8 C 98 98 16 108/65 108/65 100 07/27/18 13:38 36.8 C 80 18 114/53 L 07/27/18 13:30 36.8 C 80 16 114/53 L 07/27/18 13:05 37.0 C 98 16 117/55 L 97 Intake & Output: Intake & Output 07/24/18 07/25/18 07/26/18 07/27/18 23:59 23:59 23:59 23:59 Intake Total 2001.333 1000 590 Output Total 450 1150 Balance 1551.333 -150 590 - Objective General Appearance: positive: No acute distress, Alert Eyes Bilateral: positive: Normal inspection Respiratory: positive: Chest non-tender, No respiratory distress, Breath sounds nml Cardiovascular: positive: Regular rate & rhythm, No murmur Abdomen: positive: Non-tender, Other (Ux at U-6 and 5/10 tenderness with deep palpation, states non-tender when at rest normal locha) Back: positive: Nml inspection Skin: positive: Color nml, No rash, Warm Extremities: positive: Non-tender, Full ROM, Nml appearance, Other (No calf tenderness) Neurologic/Psychiatric: positive: Oriented x3 - Lab Results Fish Bones: 07/27/18 19:03 07/27/18 09:05 Other Labs: Lab Results x24hrs 07/27/18 07/27/18 07/27/18 Range/Units 19:03 11:45 09:05 WBC 37.1 H* (4.8-10.8) x10^3/uL RBC 2.29 L (4.20-5.40) 10^6/uL Hgb 7.4 L (12.0-16.0) g/dL Hct 21.7 L (37.0-47.0) % MCV 95.0 (81.0-99.0) fL MCH 32.4 H (27.0-31.0) pg MCHC 34.1 (32.0-36.0) g/dL RDW 14.3 (12.0-15.0) % Plt Count 188 (130-450) 10^3/uL MPV 6.9 L (7.9-10.8) fL Neut # (Auto) Not Reportable Lymph # (Auto) Not Reportable [place] # (Auto) Not Reportable Eos # (Auto) Not Reportable Baso # (Auto) Not Reportable Absolute Nucleated RBC Not Reportable Total Counted 100 Band Neuts % (Manual) 6 (0 - 10) % Abnorm Lymph % (Manual) 0 % Metamyelocytes % ( - 0) % Myelocytes % ( - 0) % Nucleated RBC % Not Reportable Neutrophils # (Manual) 33.8 H (1.5-6.6) 10^3/uL Lymphocytes # (Manual) 0.7 L (1.5-3.5) 10^3/uL Monocytes # (Manual) 2.6 H (0.0-1.0) 10^3/uL Eosinophils # (Manual) 0.0 (0-0.7) 10^3/uL Basophils # (Manual) 0.0 (0-0.1) 10^3/uL Differential Comment MANUAL DIFFERENTIAL Manual Slide Review Indicated WBC Morphology NORMAL APPEARANCE (NORMAL) Platelet Estimate NORMAL (130-450,000) (NORMAL) Platelet Morphology NORMAL APPEARANCE (NORMAL) RBC Morph Micro Appear NORMAL APPEARANCE (NORMAL) Sodium 138 (135-145) mmol/L Potassium 3.2 L (3.5-5.0) mmol/L Chloride 106 (101-111) mmol/L Carbon Dioxide 21 (21-32) mmol/L Anion Gap 11.0 (6-13) BUN 9 (6-20) mg/dL Creatinine 0.5 (0.4-1.0) mg/dL Estimated GFR (MDRD) 157 (>89) Glucose 132 H (70-100) mg/dL Lactic Acid (0.5-2.2) mmol/L Calcium 8.7 (8.5-10.3) mg/dL Total Bilirubin 0.3 (0.2-1.0) mg/dL AST 27 (10-42) IU/L ALT 12 (10-60) IU/L Alkaline Phosphatase 92 (42-121) IU/L Total Protein 5.3 L (6.7-8.2) g/dL Albumin 2.2 L (3.2-5.5) g/dL Globulin 3.1 (2.1-4.2) g/dL Albumin/Globulin Ratio 0.7 L (1.0-2.2) Urine Color YELLOW Urine Clarity CLEAR (CLEAR) Urine pH 6.0 (5.0-7.5) PH Ur Specific [place] 1.025 (1.002-1.030) Urine Protein NEGATIVE (NEGATIVE) mg/dL Urine Glucose (UA) >=1000 H (NEGATIVE) mg/dL Urine Ketones TRACE (NEGATIVE) mg/dL Urine Occult Blood TRACE-INTA (NEGATIVE) Urine Nitrite NEGATIVE (NEGATIVE) Urine Bilirubin NEGATIVE (NEGATIVE) Urine Urobilinogen 0.2 (NORMAL) (NORMAL) E.U./dL Ur Leukocyte Esterase NEGATIVE (NEGATIVE) Urine RBC 0-5 (0-5) /HPF Urine WBC 0-3 (0-5) /HPF Ur Squamous Epith Cells RARE Squamous (<= Few) Urine Bacteria Few (None Seen) /HPF Urine Mucus Few Strands Urine Culture Comments NOT INDICATED C.trachomatis RNA (TMA) (NOT DETECTED) Chlamydia/GC Comment N.gonorrhoeae RNA (TMA) (NOT DETECTED) Blood Type Antibody Screen Crossmatch IS Only 07/27/18 07/27/18 07/27/18 Range/Units 09:05 07:34 07:34 WBC (4.8-10.8) x10^3/uL RBC (4.20-5.40) 10^6/uL Hgb (12.0-16.0) g/dL Hct (37.0-47.0) % MCV (81.0-99.0) fL MCH (27.0-31.0) pg MCHC (32.0-36.0) g/dL RDW (12.0-15.0) % Plt Count (130-450) 10^3/uL MPV (7.9-10.8) fL Neut # (Auto) Lymph # (Auto) [place] # (Auto) Eos # (Auto) Baso # (Auto) Absolute Nucleated RBC Total Counted Band Neuts % (Manual) (0 - 10) % Abnorm Lymph % (Manual) % Metamyelocytes % ( - 0) % Myelocytes % ( - 0) % Nucleated RBC % Neutrophils # (Manual) (1.5-6.6) 10^3/uL Lymphocytes # (Manual) (1.5-3.5) 10^3/uL Monocytes # (Manual) (0.0-1.0) 10^3/uL Eosinophils # (Manual) (0-0.7) 10^3/uL Basophils # (Manual) (0-0.1) 10^3/uL Differential Comment Manual Slide Review WBC Morphology (NORMAL) Platelet Estimate (NORMAL) Platelet Morphology (NORMAL) RBC Morph Micro Appear (NORMAL) Sodium (135-145) mmol/L Potassium (3.5-5.0) mmol/L Chloride (101-111) mmol/L Carbon Dioxide (21-32) mmol/L Anion Gap (6-13) BUN (6-20) mg/dL Creatinine (0.4-1.0) mg/dL Estimated GFR (MDRD) (>89) Glucose (70-100) mg/dL Lactic Acid 1.7 (0.5-2.2) mmol/L Calcium (8.5-10.3) mg/dL Total Bilirubin (0.2-1.0) mg/dL AST (10-42) IU/L ALT (10-60) IU/L Alkaline Phosphatase (42-121) IU/L Total Protein (6.7-8.2) g/dL Albumin (3.2-5.5) g/dL Globulin (2.1-4.2) g/dL Albumin/Globulin Ratio (1.0-2.2) Urine Color Urine Clarity (CLEAR) Urine pH (5.0-7.5) PH Ur Specific [place] (1.002-1.030) Urine Protein (NEGATIVE) mg/dL Urine Glucose (UA) (NEGATIVE) mg/dL Urine Ketones (NEGATIVE) mg/dL Urine Occult Blood (NEGATIVE) Urine Nitrite (NEGATIVE) Urine Bilirubin (NEGATIVE) Urine Urobilinogen (NORMAL) E.U./dL Ur Leukocyte Esterase (NEGATIVE) Urine RBC (0-5) /HPF Urine WBC (0-5) /HPF Ur Squamous Epith Cells (<= Few) Urine Bacteria (None Seen) /HPF Urine Mucus Urine Culture Comments C.trachomatis RNA (TMA) (NOT DETECTED) Chlamydia/GC Comment N.gonorrhoeae RNA (TMA) (NOT DETECTED) Blood Type Cancelled O POSITIVE Antibody Screen Cancelled NEGATIVE Crossmatch IS Only See Detail 07/27/18 07/24/18 Range/Units 05:52 21:35 WBC 41.7 H* (4.8-10.8) x10^3/uL RBC 2.04 L (4.20-5.40) 10^6/uL Hgb 6.4 L* (12.0-16.0) g/dL Hct 19.5 L* (37.0-47.0) % MCV 95.9 (81.0-99.0) fL MCH 31.5 H (27.0-31.0) pg MCHC 32.9 (32.0-36.0) g/dL RDW 14.2 (12.0-15.0) % Plt Count 215 (130-450) 10^3/uL MPV 6.6 L (7.9-10.8) fL Neut # (Auto) Not Reportable Lymph # (Auto) Not Reportable [place] # (Auto) Not Reportable Eos # (Auto) Not Reportable Baso # (Auto) Not Reportable Absolute Nucleated RBC Not Reportable Total Counted 100 Band Neuts % (Manual) 20 H (0 - 10) % Abnorm Lymph % (Manual) 0 % Metamyelocytes % 1 H ( - 0) % Myelocytes % 1 H ( - 0) % Nucleated RBC % Not Reportable Neutrophils # (Manual) 36.3 H (1.5-6.6) 10^3/uL Lymphocytes # (Manual) 3.3 (1.5-3.5) 10^3/uL Monocytes # (Manual) 1.3 H (0.0-1.0) 10^3/uL Eosinophils # (Manual) 0.0 (0-0.7) 10^3/uL Basophils # (Manual) 0.0 (0-0.1) 10^3/uL Differential Comment MANUAL DIFFERENTIAL Manual Slide Review WBC Morphology (NORMAL) Platelet Estimate NORMAL (130-450,000) (NORMAL) Platelet Morphology (NORMAL) RBC Morph Micro Appear NORMAL APPEARANCE (NORMAL) Sodium (135-145) mmol/L Potassium (3.5-5.0) mmol/L Chloride (101-111) mmol/L Carbon Dioxide (21-32) mmol/L Anion Gap (6-13) BUN (6-20) mg/dL Creatinine (0.4-1.0) mg/dL Estimated GFR (MDRD) (>89) Glucose (70-100) mg/dL Lactic Acid (0.5-2.2) mmol/L Calcium (8.5-10.3) mg/dL Total Bilirubin (0.2-1.0) mg/dL AST (10-42) IU/L ALT (10-60) IU/L Alkaline Phosphatase (42-121) IU/L Total Protein (6.7-8.2) g/dL Albumin (3.2-5.5) g/dL Globulin (2.1-4.2) g/dL Albumin/Globulin Ratio (1.0-2.2) Urine Color Urine Clarity (CLEAR) Urine pH (5.0-7.5) PH Ur Specific [place] (1.002-1.030) Urine Protein (NEGATIVE) mg/dL Urine Glucose (UA) (NEGATIVE) mg/dL Urine Ketones (NEGATIVE) mg/dL Urine Occult Blood (NEGATIVE) Urine Nitrite (NEGATIVE) Urine Bilirubin (NEGATIVE) Urine Urobilinogen (NORMAL) E.U./dL Ur Leukocyte Esterase (NEGATIVE) Urine RBC (0-5) /HPF Urine WBC (0-5) /HPF Ur Squamous Epith Cells (<= Few) Urine Bacteria (None Seen) /HPF Urine Mucus Urine Culture Comments C.trachomatis RNA (TMA) NOT DETECTED (NOT DETECTED) Chlamydia/GC Comment SEE NOTE N.gonorrhoeae RNA (TMA) NOT DETECTED (NOT DETECTED) Blood Type Antibody Screen Crossmatch IS Only Assessment/Plan - Problem List (7) endometritis Impression: # PPD #2 s/p vacuum assisted delivery that was complicated by IAI prior to delivery. Patient received one dose of AMP/GENT prior to delivery and another dose of AMP/GENT after delivery. # DX endometritis given increased WBC from 36K to 41K from PPD 1 to PPD2. Patient started on Zosyn 4.5 GM then 3.375 GM q8h. WBC this evening down to 37K. # Anemia improved after 1 unit PRBCs as well (see labs) # Patient appears to clinically be turning corner, albeit slowly with WBC dropping only 4K after ABX started. Plan: 1) Transfuse 2nd unit PRBC tonight to correct anemia. 2) Continue Zosyn 3) Repeat CBC, CMP, Lactic Acid in AM 4) Decrease IV fluids to 50 mL/Hr after transfusion. Patient understands condition and all questions answered to her satisfaction.
[2018-07-28] MEDS ORDERED: SODIUM CHLORIDE FLUSH 0.9% 10 ML SYRINGE ONE ×2 (01:21→10:39)
[2018-07-28] MEDS: PIPERACILLIN/TAZOBACTAM 3.375 GM in SODIUM CHLORIDE 0.9% MINIBAG 100 ML IV SCH ×2 (01:22→10:44)
[2018-07-28] MEDS: SIMETHICONE CHEW 80 MG TABLET PO SCH (05:27)
[2018-07-28] MEDS: ACETAMINOPHEN 500 MG TABLET PO PRN (05:27)
[2018-07-28 07:02] LABS: BASOPHILS % (AUTO) 0.1 %; HGB - HEMOGLOBIN 8.3 g/dL (12.0-16.0); LYMPHOCYTES # (AUTO) 1.5 10^3/uL (1.5-3.5); LYMPHOCYTES % (AUTO) 4.1 %; MEAN PLATELET VOLUME 6.9 fL (7.9-10.8); MONOCYTES # (AUTO) 2.1 10^3/uL (0.0-1.0); MONOCYTES % (AUTO) 5.5 %; NEUTROPHILS # (AUTO) 33.7 10^3/uL (1.5-6.6); NEUTROPHILS % (AUTO) 90.3 %; PLT - PLATELET COUNT 196 10^3/uL (130-450); RED BLOOD COUNT 2.67 10^6/uL (4.20-5.40); RED CELL DISTRIBUTION WIDTH 14.8 % (12.0-15.0)
[2018-07-28 07:06] LABS: WHITE BLOOD COUNT 37.3 x10^3/uL (4.8-10.8)
[2018-07-28 07:13] LABS: ALBUMIN 1.9 g/dL (3.2-5.5); ALBUMIN/GLOBULIN RATIO 0.7 (1.0-2.2); BILIRUBIN,TOTAL 0.4 mg/dL (0.2-1.0); CREATININE 0.5 mg/dL (0.4-1.0); TOTAL PROTEIN 4.7 g/dL (6.7-8.2)
[2018-07-28 07:48] LABS: PLATELET ESTIMATE, MANUAL NORMAL (130-450,000) (NORMAL); PLATELET MORPHOLOGY 1+ LARGE PLATELETS (NORMAL)
[2018-07-28] MEDS: buPROPion XL 150 MG TABLET PO SCH (10:43)
[2018-07-28] MEDS: FERROUS SULFATE 325 MG TABLET PO SCH (10:43)
[2018-07-28] MEDS: IBUPROFEN 800 MG TABLET PO PRN (10:43)
[2018-07-28] MEDS: DOCUSATE SODIUM 100 MG CAPSULE PO SCH (10:43)
[2018-07-28] MEDS ORDERED: IOVERSOL 320 100 ML VIAL IVP ONE ×3 (11:13→12:32)
[2018-07-28] MEDS ORDERED: IOVERSOL 320 50 ML VIAL ONE (11:13)
--- NOTE | 2018-07-28 11:27 | PROVIDER PROGRESS NOTE ---
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 Denies abdominal or uterine pain except for deep palpation of fundus at time of exams rated 5/10.) Objective - Vital Signs/Intake & Output Reviewed Vital Signs: Yes Vital Signs: Vital Signs x48h Temp Pulse Resp BP Pulse Ox 07/28/18 09:00 62 18 111/60 99 07/28/18 08:17 36.9 C 62 16 118/66 100 07/28/18 06:59 60 123/66 07/28/18 04:23 37.4 C 67 16 118/63 99 Intake & Output: Intake & Output 07/25/18 07/26/18 07/27/18 07/28/18 23:59 23:59 23:59 23:59 Intake Total 2001.333 1000 1210 1650 Output Total 450 1150 Balance 1551.333 -150 1210 1650 - Objective General Appearance: positive: No acute distress, Alert Respiratory: positive: Chest non-tender, No respiratory distress, Breath sounds nml Cardiovascular: positive: Regular rate & rhythm, No murmur Abdomen: positive: Non-tender, No organomegaly, No distention, Other (UX U-6 and NT normal lochia) Back: positive: Nml inspection Skin: positive: Color nml, No rash, Warm Extremities: positive: Non-tender, Full ROM, No pedal edema Neurologic/Psychiatric: positive: Oriented x3, CN's nml (2-12) (HCT with appropriate response after 2nd unit PRBC from 21 to 25. WBC has remained at 37K from last night to this AM on Zosyn) - Lab Results Fish Bones: 07/28/18 06:50 07/28/18 06:50 Other Labs: Lab Results x24hrs 07/28/18 07/28/18 07/28/18 Range/Units 06:50 06:50 06:50 WBC 37.3 H* (4.8-10.8) x10^3/uL RBC 2.67 L (4.20-5.40) 10^6/uL Hgb 8.3 L (12.0-16.0) g/dL Hct 25.1 L (37.0-47.0) % MCV 94.0 (81.0-99.0) fL MCH 31.0 (27.0-31.0) pg MCHC 33.0 (32.0-36.0) g/dL RDW 14.8 (12.0-15.0) % Plt Count 196 (130-450) 10^3/uL MPV 6.9 L (7.9-10.8) fL Neut # (Auto) 33.7 H Lymph # (Auto) 1.5 Irion # (Auto) 2.1 H Eos # (Auto) 0.0 Baso # (Auto) 0.0 Absolute Nucleated RBC 0.01 Total Counted Band Neuts % (Manual) (0 - 10) % Abnorm Lymph % (Manual) % Nucleated RBC % 0.0 Neutrophils # (Manual) (1.5-6.6) 10^3/uL Lymphocytes # (Manual) (1.5-3.5) 10^3/uL Monocytes # (Manual) (0.0-1.0) 10^3/uL Eosinophils # (Manual) (0-0.7) 10^3/uL Basophils # (Manual) (0-0.1) 10^3/uL Differential Comment Manual Slide Review Indicated WBC Morphology NORMAL APPEARANCE (NORMAL) Platelet Estimate NORMAL (130-450,000) (NORMAL) Platelet Morphology 1+ LARGE PLATELETS (NORMAL) RBC Morph Micro Appear 1+ POLYCHROMASIA (NORMAL) Sodium 138 (135-145) mmol/L Potassium 3.1 L (3.5-5.0) mmol/L Chloride 107 (101-111) mmol/L Carbon Dioxide 22 (21-32) mmol/L Anion Gap 9.0 (6-13) BUN 8 (6-20) mg/dL Creatinine 0.5 (0.4-1.0) mg/dL Estimated GFR (MDRD) 157 (>89) Glucose 122 H (70-100) mg/dL Lactic Acid 1.5 (0.5-2.2) mmol/L Calcium 8.0 L (8.5-10.3) mg/dL Total Bilirubin 0.4 (0.2-1.0) mg/dL AST 26 (10-42) IU/L ALT 17 (10-60) IU/L Alkaline Phosphatase 75 (42-121) IU/L Total Protein 4.7 L (6.7-8.2) g/dL Albumin 1.9 L (3.2-5.5) g/dL Globulin 2.8 (2.1-4.2) g/dL Albumin/Globulin Ratio 0.7 L (1.0-2.2) Urine Color Urine Clarity (CLEAR) Urine pH (5.0-7.5) PH Ur Specific [place] (1.002-1.030) Urine Protein (NEGATIVE) mg/dL Urine Glucose (UA) (NEGATIVE) mg/dL Urine Ketones (NEGATIVE) mg/dL Urine Occult Blood (NEGATIVE) Urine Nitrite (NEGATIVE) Urine Bilirubin (NEGATIVE) Urine Urobilinogen (NORMAL) E.U./dL Ur Leukocyte Esterase (NEGATIVE) Urine RBC (0-5) /HPF Urine WBC (0-5) /HPF Ur Squamous Epith Cells (<= Few) Urine Bacteria (None Seen) /HPF Urine Mucus Urine Culture Comments C.trachomatis RNA (TMA) (NOT DETECTED) Chlamydia/GC Comment N.gonorrhoeae RNA (TMA) (NOT DETECTED) Blood Type Antibody Screen Crossmatch IS Only 07/27/18 07/27/18 07/27/18 Range/Units 19:03 11:45 07:34 WBC 37.1 H* (4.8-10.8) x10^3/uL RBC 2.29 L (4.20-5.40) 10^6/uL Hgb 7.4 L (12.0-16.0) g/dL Hct 21.7 L (37.0-47.0) % MCV 95.0 (81.0-99.0) fL MCH 32.4 H (27.0-31.0) pg MCHC 34.1 (32.0-36.0) g/dL RDW 14.3 (12.0-15.0) % Plt Count 188 (130-450) 10^3/uL MPV 6.9 L (7.9-10.8) fL Neut # (Auto) Not Reportable Lymph # (Auto) Not Reportable Irion # (Auto) Not Reportable Eos # (Auto) Not Reportable Baso # (Auto) Not Reportable Absolute Nucleated RBC Not Reportable Total Counted 100 Band Neuts % (Manual) 6 (0 - 10) % Abnorm Lymph % (Manual) 0 % Nucleated RBC % Not Reportable Neutrophils # (Manual) 33.8 H (1.5-6.6) 10^3/uL Lymphocytes # (Manual) 0.7 L (1.5-3.5) 10^3/uL Monocytes # (Manual) 2.6 H (0.0-1.0) 10^3/uL Eosinophils # (Manual) 0.0 (0-0.7) 10^3/uL Basophils # (Manual) 0.0 (0-0.1) 10^3/uL Differential Comment MANUAL DIFFERENTIAL Manual Slide Review Indicated WBC Morphology NORMAL APPEARANCE (NORMAL) Platelet Estimate NORMAL (130-450,000) (NORMAL) Platelet Morphology NORMAL APPEARANCE (NORMAL) RBC Morph Micro Appear NORMAL APPEARANCE (NORMAL) Sodium (135-145) mmol/L Potassium (3.5-5.0) mmol/L Chloride (101-111) mmol/L Carbon Dioxide (21-32) mmol/L Anion Gap (6-13) BUN (6-20) mg/dL Creatinine (0.4-1.0) mg/dL Estimated GFR (MDRD) (>89) Glucose (70-100) mg/dL Lactic Acid (0.5-2.2) mmol/L Calcium (8.5-10.3) mg/dL Total Bilirubin (0.2-1.0) mg/dL AST (10-42) IU/L ALT (10-60) IU/L Alkaline Phosphatase (42-121) IU/L Total Protein (6.7-8.2) g/dL Albumin (3.2-5.5) g/dL Globulin (2.1-4.2) g/dL Albumin/Globulin Ratio (1.0-2.2) Urine Color YELLOW Urine Clarity CLEAR (CLEAR) Urine pH 6.0 (5.0-7.5) PH Ur Specific [place] 1.025 (1.002-1.030) Urine Protein NEGATIVE (NEGATIVE) mg/dL Urine Glucose (UA) >=1000 H (NEGATIVE) mg/dL Urine Ketones TRACE (NEGATIVE) mg/dL Urine Occult Blood TRACE-INTA (NEGATIVE) Urine Nitrite NEGATIVE (NEGATIVE) Urine Bilirubin NEGATIVE (NEGATIVE) Urine Urobilinogen 0.2 (NORMAL) (NORMAL) E.U./dL Ur Leukocyte Esterase NEGATIVE (NEGATIVE) Urine RBC 0-5 (0-5) /HPF Urine WBC 0-3 (0-5) /HPF Ur Squamous Epith Cells RARE Squamous (<= Few) Urine Bacteria Few (None Seen) /HPF Urine Mucus Few Strands Urine Culture Comments NOT INDICATED C.trachomatis RNA (TMA) (NOT DETECTED) Chlamydia/GC Comment N.gonorrhoeae RNA (TMA) (NOT DETECTED) Blood Type Cancelled Antibody Screen Cancelled Crossmatch IS Only See Detail 07/24/18 Range/Units 21:35 WBC (4.8-10.8) x10^3/uL RBC (4.20-5.40) 10^6/uL Hgb (12.0-16.0) g/dL Hct (37.0-47.0) % MCV (81.0-99.0) fL MCH (27.0-31.0) pg MCHC (32.0-36.0) g/dL RDW (12.0-15.0) % Plt Count (130-450) 10^3/uL MPV (7.9-10.8) fL Neut # (Auto) Lymph # (Auto) Irion # (Auto) Eos # (Auto) Baso # (Auto) Absolute Nucleated RBC Total Counted Band Neuts % (Manual) (0 - 10) % Abnorm Lymph % (Manual) % Nucleated RBC % Neutrophils # (Manual) (1.5-6.6) 10^3/uL Lymphocytes # (Manual) (1.5-3.5) 10^3/uL Monocytes # (Manual) (0.0-1.0) 10^3/uL Eosinophils # (Manual) (0-0.7) 10^3/uL Basophils # (Manual) (0-0.1) 10^3/uL Differential Comment Manual Slide Review WBC Morphology (NORMAL) Platelet Estimate (NORMAL) Platelet Morphology (NORMAL) RBC Morph Micro Appear (NORMAL) Sodium (135-145) mmol/L Potassium (3.5-5.0) mmol/L Chloride (101-111) mmol/L Carbon Dioxide (21-32) mmol/L Anion Gap (6-13) BUN (6-20) mg/dL Creatinine (0.4-1.0) mg/dL Estimated GFR (MDRD) (>89) Glucose (70-100) mg/dL Lactic Acid (0.5-2.2) mmol/L Calcium (8.5-10.3) mg/dL Total Bilirubin (0.2-1.0) mg/dL AST (10-42) IU/L ALT (10-60) IU/L Alkaline Phosphatase (42-121) IU/L Total Protein (6.7-8.2) g/dL Albumin (3.2-5.5) g/dL Globulin (2.1-4.2) g/dL Albumin/Globulin Ratio (1.0-2.2) Urine Color Urine Clarity (CLEAR) Urine pH (5.0-7.5) PH Ur Specific [place] (1.002-1.030) Urine Protein (NEGATIVE) mg/dL Urine Glucose (UA) (NEGATIVE) mg/dL Urine Ketones (NEGATIVE) mg/dL Urine Occult Blood (NEGATIVE) Urine Nitrite (NEGATIVE) Urine Bilirubin (NEGATIVE) Urine Urobilinogen (NORMAL) E.U./dL Ur Leukocyte Esterase (NEGATIVE) Urine RBC (0-5) /HPF Urine WBC (0-5) /HPF Ur Squamous Epith Cells (<= Few) Urine Bacteria (None Seen) /HPF Urine Mucus Urine Culture Comments C.trachomatis RNA (TMA) NOT DETECTED (NOT DETECTED) Chlamydia/GC Comment SEE NOTE N.gonorrhoeae RNA (TMA) NOT DETECTED (NOT DETECTED) Blood Type Antibody Screen Crossmatch IS Only Assessment/Plan - Problem List (7) endometritis Impression: # PPD 2 s/p vacuum assisted vaginal delivery, complicated by IAI (chorioamnionitis) just prior to delivery. # Now >24 hours on IV Zosyn 4.5 GM then 3.375 GM q8h for endometritis in patient with WBC 41K on PPD 1. WBC today 37K # Patient clinically has been stable, feeling and doing well since start of IV ABX other than some fatigue from delivery and anemia. # Anemia: HCT 19.5 improved to 25% after transfusion 2 units PRBCs yesterday, consistent with an appropriate response. # Patient gives hx of out of the ordinary leukocytosis in the past. Gives hx of two years ago being operated on for appendicitis due to RLQ and markedly osiris vated WBC and found to have normal appendix and ovarian cysts only. # Blood Cultures pending. # Case discussed with hospitalist Dr. Shaunna Amador Plan: 1) Proceed with CT abdomen & pelvis as planned with IV/Oral contrast to check for abscess. 2) Peripheral Flow Cytometry, per Dr. Amador, to evaluate for possible leukemia vs other. This is a send out test that has been ordered. Will follow. 3) If CT negative for abscess, will send patient home on 7 days of oral Augmentin BID to complete course of therapy for endometritis. 4) Follow up with Dr. Leon in [facility] clinic in 1 week. FOB present with patient in the room during entire discussion about patient's condition. Patient understands condition and all questions answered. If CT negative for abscess, plan to discharge patient later today. She is looking forward to going home.
[2018-07-28] MEDS ORDERED: SODIUM CHLORIDE FLUSH 0.9% 10 ML SYRINGE IVP PRN (11:39)
[2018-07-28] MEDS ORDERED: IOVERSOL 320 50 ML VIAL PO ONE (12:32)
--- NOTE | 2018-07-28 13:45 | CT Report ---
Reason: 2 days . Check for abscess Procedure Date: 07/28/2018 Accession Number: [id number] / [id number] Procedure: CT - Abdomen/Pelvis W CPT Code: FULL RESULT: EXAM: CT ABDOMEN AND PELVIS EXAM DATE: 07/28/2018 12:13 PM. CLINICAL HISTORY: 2 days . Check for abscess. COMPARISONS: Obstetric ultrasound from 07/23/2018. TECHNIQUE: Routine helical CT imaging was performed through the abdomen and pelvis. IV contrast: 90 cc Optiray 320. Enteric contrast: Yes. Reconstructions: Coronal and sagittal. In accordance with CT protocol optimization, one or more of the following dose reduction techniques were utilized for this exam: automated exposure control, adjustment of mA and/or KV based on patient size, or use of iterative reconstructive technique. FINDINGS: Lung Bases: Unremarkable. Liver: There is mild periportal edema. No focal liver lesions. Portal veins are patent. Gallbladder/Bile Ducts: Gallbladder is decompressed. There is concentric gallbladder wall thickening. No gallstones demonstrated. Bile ducts are normal in caliber. Spleen: Unremarkable. Pancreas: There is a 5 mm hypoattenuating focus in the uncinate process (series 3, image 28). Pancreas is otherwise unremarkable. Adrenal Glands: No nodules. Kidneys: There is a subcentimeter hypoattenuating focus in the upper pole of the right kidney which is too small to characterize. Mild right pelvocaliectasis is demonstrated. No calculus demonstrated. Peritoneal Cavity/Bowel: There is displacement of the small bowel and sigmoid colon by the recently gravid uterus. No evidence of bowel obstruction or inflammation. Appendix is surgically absent. Pelvic Organs: Uterus is enlarged, measuring approximately 16.8 x 10.2 x 17.0 cm (series 3, image 55 and series 6, image 39). This is compatible with recent state. The myometrium is diffusely hypoattenuating, which can be a normal appearance. There is increased irregular enhancement in the anterior myometrium (series 3, image 55), which may represent sequela of previous anterior placenta. There is suggestion of focal thickening of the endometrium in the left fundus measuring approximately 4.0 x 2.2 x 4.1 cm (series 3, image 49 and series 6, image 26). Urinary bladder is slightly compressed anteriorly. Ovaries are grossly unremarkable. Vasculature: No abdominal aortic aneurysm. Bones: No suspicious osseous lesion. There is a limbus vertebra at L4. Other: None. IMPRESSION: 1. Enlarged uterus, compatible with recent state. There appears to be focal thickening of the left fundal portion of the endometrial cavity, which could represent hematoma, retained products, or sequela of endometritis (if there is suspicion for infection). Per discussion with Dr. Coleman, the placenta was delivered intact, and small volume fluid was seen on recent prior in-office ultrasound. Therefore, there is low clinical suspicion for retained products of conception. 2. No finding suspicious for extrauterine abscess. 3. Mild concentric wall thickening of the gallbladder and mild periportal edema. Findings may represent sequela of fluid overload or hepatocellular dysfunction. Acute cholecystitis seems unlikely as the gallbladder is not distended. 4. Subsegmental hypoattenuating focus in the uncinate process of the pancreas. A small cystic pancreatic lesion is not excluded. Suggest follow-up with MRI/MRCP in 12 months. 5. Mild right pelvocaliectasis without affecting calculus. Suspect sequela of ureteral compression by recently gravid uterus as well as hormonal effect. RADIA The call report notification system was initiated by Dr. Jared Hillman at 01:35 PM on 07/28/2018. The above call report findings were discussed with Dr. Sae Coleman by Dr. Jared Hillman at 01:39 PM on 07/28/2018.
[2018-07-28 16:28] VITALS: BP 134/75
--- NOTE | 2018-07-28 16:37 | DISCHARGE SUMMARY ---
"Discharge Summary Admit Date: 07/24/18 Discharge Date: 07/28/18 Discharging Provider: MARCI Code Status: Attempt Resuscitation Condition at Discharge: Good Discharge Disposition: 01 Home, Self Care - DIAGNOSES Admission Diagnoses: TERM SMALL FOR GESTATIONAL AGE Discharge Diagnoses with Status of Each Condition: TERM (GOOD CONDITION) CARE (GOOD CONDITION) ENDOMETRITIS, RESOLVED (GOOD CONDITION) - HPI History of Present Illness: History of Present Illness - Admitted From Admitted From:: HOME - History Obtained From Records Reviewed: YES History obtained from: PATIENT Exam Limitations: NONE - History of Present Illness HPI Comment/Other: 22 yo EDC 07/31/18, EGA 39 0/7 weeks EGA admitted for IOL. Hx of SGA, with serial US at end of negative for IUGR. US here 06/26/18 EFW 2269 gms @ 14%ile with subsequent US by MFM negative for IUGR per patient report. Patient for IOL. PNC: 1) Smoking cessation: stopped smoking 1 month ago. On Wellbutrin XL 150 mg/d since 2nd trim. per hx for this. Not on this med any other time. Would like to be weaned off Wellbutrin . 2) Anemia: Fe transfusion x 1 @ 28 weeks, on tid Fe 3) Right upper jaw/gum pain, not certain if she has a cavity, plans to see dentist 4) Abnormal 1 hr GTT 144, did not get 3 hr GTT done 5) No records of GC/CT testing at 35-37 weeks: ordered on admission. 6) MBT o POS 7) GBS Neg PMH: Anemia PSH: [place] teeth, Laparoscopic appy (unruptured), normal appy at time of surgery, states had ovarian cysts at time and not sure of cysts operated on. SHx: Quit smoking 1 month ago Meds: Wellbutrin XL 150 m p.o. 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 - Substance History Use: Uses substance without health or social issues: NONE - POLST Patient has POLST: No Meds/Allgy - Home Medications Home Medications: Ambulatory Orders Medication Instructions Recorded Confirmed Pnv95/Ferrous Fumarate/FA 11/29/17 [ Vitamin Tablet] - Allergies Allergies/Adverse Reactions: Allergies Allergy/AdvReac Type Severity Reaction Status Date / Time No Known Drug Allergies Allergy Verified 02/21/18 11:13 Review of Systems - Ears, Nose & Throat Ears, Nose & Throat: reports: Bleeding gums, Dental pain (right upper gum vs dental pain. scheduled to see dentist ) - All Other Systems All Other Systems: reports: Other (ROS otherwise negative for CV, Resp, GI/, MS, Skin, Endocrin, Psych) Exam - Vital Signs Reviewed Vital Signs: Yes - Physical Exam General Appearance: positive: No acute distress, Alert Eyes Bilateral: positive: Normal inspection, PERRL, No lid inflammation, No scleral icterus ENT: positive: ENT inspection nml, No signs of dehydration, Other (no severe gum swelling or bleeding, unabe to determine if right dental caries or not on exam, not obvious on exam.) Neck: positive: Nml inspection Respiratory: positive: Chest non-tender, No respiratory distress, Breath sounds nml Cardiovascular: positive: Regular rate & rhythm, No murmur Peripheral Pulses: positive: 2+ Abdomen: positive: Non-tender, No organomegaly, Other (Gravid Uterus. Le[place] 6 1/2 Lbs.) Back: positive: Nml inspection Skin: positive: Color nml, No rash, Warm Extremities: positive: Non-tender, Full ROM, Nml appearance Neurologic/Psychiatric: positive: Oriented x3, CN's nml (2-12), Motor nml ( RNST Category I with no regular uterine contractions. CX 50/-3/mid/mod (Reddy Score 3)) Conclusion/Plan - Problem List (1) Term Conclusion/Plan: # 39 0/7 weeks with SGA, followed with serial US due to concerns of possible IUGR, US >10%ile. Admitted for IOL # GBS Neg # Cx 50/-3/mid/mod with Reddy Score 3, adequt # Anemia: Type and Screen # Right upper dental/gum pain, with exam not remarkable: tylenol prn at patient request, will see dentist # Smoking Cessation: quit 1 month ago, on Wellbutrin 150 mg XL during # 1 hr GTT 144 mildly elevated # No GC/Ct testing at 35-37 weeks. Plan: # Discussed several options for Cx ripening/IOL to include oral and vaginal cytotec, low dose IV pitocin overnight, vaginal cervidil overnight. Patient opted for vaginal cervidil. # Tylenol 1,000 mg for tooth pain # Urine GC/CT today # Vistaril 25 mg prn sleep # Fentanyl 50 micrograms prn contractions pain prn at 8 cm or less Patient understands condition and all questions answered to her satisfaction. - CONSULTS | PROCEDURES Consultations: INPATIENT MEDICINE HOSPITALIST Procedures: CERVIDIL CERVICAL RIPENING ARTIFICIAL RUPTURE OF MEMBRANES PITOCIN AUGMENTATION EPIDURAL ANESTHESIA VACUUM ASSISTED VAGINAL DELIVERY INTRAVENOUS ANTIBIOTIC THERAPY CT SCAN OF ABDOMEN AND PELVIS - HOSPITAL COURSE Hospital Course: The patient was admitted the evening of 07/24/18 at which time she underwent placement of cervidil vaginally for cervcal ripening. During the night the patient becan to contract very strongly and the cervidil had to be removed. She was found to have a favorable cervix and underwent AROM the following morning followed by pitocin augmentation of labor under epidural anesthesia. The late evening of 07/25/18 the patient developed IAI (chorioamnionitis) approximately 2 hours prior to delivery. The patient received one dose of AMP/GENT prior to delivery and a second dose . The only maternal temp occurred prior to delivery at 38.0 . Her WBC at the time of dx of IAI was 15K. She delivered via outlet vacuum assisted a viable female . The patient's WBC later that morning chely to 35K, however the patient felt fine and was afebrile. A CBC was repeated the following morning and the WBC had risen to 41K. Again the patient felt relatively fine except for fatigue, atributed to lack of sleep and maternal anemia, with a HCT of 19.5. Physical exam was unremarkable except for mild uterine pain on deep palpation. Bedside abdominal US by me showed a thin uterine stripe consistent with recent state, with no evidence of retained tissue. Dr. Amador, the on-call hospitalist was consulted. The patient was started on IV Zosyn for presumed endometritis. She was also transfused one unit PRBC due to maternal anemia, with a HCT of 19.5. The patient's lactic acid level was normal. The patient remained afebrile throughout her course. She reported feeling better after ABX were started and having received 1 unit PRBCs. Her WBC had decreased somewhat that evening to 37K and her HCT had increased slightly to 21%. The decision was made to transfuse another unit of PRBC to help her recovery and correct anemia. The following moring, the patient felt even better and her HCT had increased to 25%. Her WBC, however had remained at 37K. The patient clinically was doing very well, however the WBC was out of proportion to her clinical picture. A CT scan with IV and oral contrast was performed and was essentially unremarkable. Dr Amador again was consulted regarding the elevated WBC in a patient was obviously doing very well clinically, afebrile throughout her course, normotensive and with a resting pulse in the 60s. She recommended a a peripheral flow cytometry (send out test) to check for leukemia or some other abnormality, in addition to stopping IV antibiotics and sending patient home on 6 day course of Augmentin to finish 7 day course of ABX therapy. The patient understands her condition and all questions answered. FOB present. Android Programmer also aware. She will follow up in [facility] clinic early next week with Dr. Leon who knows the patient well and is familiar with her hospital course also. She will be informed her peripheral flow cytometry by either Dr. Leon in office (if available) or by me later. The patient will need a Heme/Onc referral after her peripheral smear results return. The patient was given routine instructions as well as instructions to return to hospital for any symptoms consistent with recurrent endometritis (ie. fever, chills, severe abdominal/uterine pain). She voiced understanding of all of this and all questions answered. - ALLERGIES Allergies/Adverse Reactions: Allergies Allergy/AdvReac Type Severity Reaction Status Date / Time No Known Drug Allergies Allergy Verified 02/21/18 11:13 - MEDICATIONS Home Medications: Ambulatory Orders Medication Instructions Recorded Confirmed Pnv95/Ferrous Fumarate/FA 11/29/17 [ Vitamin Tablet] Home Medications Other | Comments: Motrin 800 mg #60: 1 p.o. q8h WF prn pain Augmentin 875 mg #12: 1 p.o. bid x 6 days to complete 7 day course - PHYSICAL EXAM AT DISCHARGE General Appearance: positive: No acute distress, Alert Neck: positive: Nml inspection, Thyroid nml Respiratory: positive: Chest non-tender, No respiratory distress Cardiovascular: positive: Regular rate & rhythm, No murmur Peripheral Pulses: positive: 2+ Abdomen: positive: Non-tender, No organomegaly, Other (Ux form U-6 and NT, normal lochia) Back: positive: Nml inspection Skin: positive: Color nml, No rash, Warm Extremities: positive: Non-tender, Full ROM, Nml appearance Neurologic/Psychiatric: positive: Oriented x3, CN's nml (2-12) - LABS Result Diagrams: 07/28/18 06:50 07/28/18 06:50 - FOLLOW UP Follow Up: See Dr. Leon at [facility] week of Jul - Aug. Call for appointment. See Dr. Leon at [facility] 6 weeks for 6 week visit. - TIME SPENT Time Spent in Discharge (Minutes): 60"
--- NOTE | 2018-07-28 17:12 | Discharge Plan ---
Discharge Plan Disposition: 01 Home, Self Care Condition: Good Diet: Regular Activity Restrictions: See Written Instructions Shower Restrictions: No Driving Restrictions: Yes (See Writtent Instructions) Weight Bearing: Full Weight No Smoking: If you smoke, Please STOP! Call for help. Follow-up with: Bean Leon MD [Provider Admit Priv/Credential] -
--- NOTE | 2018-08-08 14:58 | MISCELLANEOUS PROVIDER NOTE ---
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 Patient with markedly elevated WBC far greater than usual in patient with diagnosis of endometritis who otherwise was afebrile and feeling well, non-tachcardic. Patient with similar history in the past during hospitalization 2 years ago in [place]. Two medical points related to patient case in this note: 1) Patient underwent CT of abdomen and pelvis with contrast the morning of discharge to rule out abscess. Verbal at the time was negative for abscess. Final report makes following statement regarding the area of the pancreas: "Subsegmental attenuating focus in the uncinate process of the pancreas. A small cystic pancreatic lesion is not excluded. Suggest follow up MRI/MRCP in 12 months." 2) Given markedly elevated WBC (43K) at the time of diagnosis of endometritis and prior hx, a peripheral blood flow cytometry test was ordered and sample collected on 07/28/18 to check for possible leukemia. I have been checking EHR regularly for last week and result still not back. Spoke with our lab today regarding results of this send-out test. I just got off the phone with Inocencia from our lab who informed me that the sample was not sent, no specific reason given. She informed me lab would be contacting patient and have her come in to get blood re-drawn for said test. I contacted patient on phone listed for her in EHR demographics and spoke with her about the above two issues. She does not have a current PCM at [facility]. She has a [address] Leon in our department. I instructed Juan to inform Dr. Leon about recommendation for MRI/MRCP study in 12 months. She said she would let him know. I also made her aware lab would be contacting her to come in to get blood re-drawn for peripheral blood flow cytometry, and I will be following the result for said test. She voiced understanding and all questions answered.
== END 2018-07-28 18:30 | disposition home or self-care (01) | DRG 768 ==
LOC: WFO 17:15 → FBP 17:16 → WFO 20:16 → OBSVTOIN 07-26 00:18
PROVIDERS: ADMIT Obstetrics & Gynecology; ATTEND Obstetrics & Gynecology
PROC: 10907ZC Drainage of Amniotic Fluid, Therapeutic from Products of Conception, Via Natural or Artificial Opening (ICD-10-PCS; 2018-07-25)
PROC: 10D07Z6 Extraction of Products of Conception, Vacuum, Via Natural or Artificial Opening (ICD-10-PCS; principal; 2018-07-26)
PROC: 0TQDXZZ Repair Urethra, External Approach (ICD-10-PCS; 2018-07-26)
PROC: 0KQM0ZZ Repair Perineum Muscle, Open Approach (ICD-10-PCS; 2018-07-26)
PROC: 30233N1 Transfusion of Nonautologous Red Blood Cells into Peripheral Vein, Percutaneous Approach (ICD-10-PCS; 2018-07-27)
DX: O36.5930 Maternal care for other known or suspected poor fetal growth, third trimester, not applicable or unspecified (principal); Z37.0 Single live birth; O75.3 Other infection during labor; O86.12 Endometritis following delivery; O99.02 Anemia complicating childbirth; O99.03 Anemia complicating the puerperium; D50.9 Iron deficiency anemia, unspecified; O75.81 Maternal exhaustion complicating labor and delivery; O76 Abnormality in fetal heart rate and rhythm complicating labor and delivery; O70.1 Second degree perineal laceration during delivery; O71.82 Other specified trauma to perineum and vulva; O75.89 Other specified complications of labor and delivery; K08.89 Other specified disorders of teeth and supporting structures; O99.89 Other specified diseases and conditions complicating pregnancy, childbirth and the puerperium; D72.829 Elevated white blood cell count, unspecified; Z3A.39 39 weeks gestation of pregnancy; Z87.891 Personal history of nicotine dependence; Z79.899 Other long term (current) drug therapy
CPT/HCPCS: 36415; 59200; 74177; 80053; 81001; 83605; 85025; 86850; 86900; 86901; 86920; 87040; 87491; 87591; 96361; 96365; 96375; 96376; A9270; G0378; G0379; J1200; J1580; J7120; P9016; Q9967; 82803; 87086

== ENCOUNTER 2018-08-03 11:44 | Outpatient (CLI) | payer MEDICAID ==
[2018-08-03 18:49] LABS: BASOPHILS % (AUTO) 0.2 %; EOSINOPHILS # (AUTO) 0.2 10^3/uL (0.0-0.7); EOSINOPHILS % (AUTO) 1.3 %; HGB - HEMOGLOBIN 12.2 g/dL (12.0-16.0); LYMPHOCYTES # (AUTO) 2.8 10^3/uL (1.5-3.5); LYMPHOCYTES % (AUTO) 17.8 %; MEAN CORPUSCULAR HEMOGLOBIN 30.6 pg (27.0-31.0); MEAN CORPUSCULAR VOLUME 92.7 fL (81.0-99.0); MEAN PLATELET VOLUME 6.2 fL (7.9-10.8); MONOCYTES # (AUTO) 1.1 10^3/uL (0.0-1.0); MONOCYTES % (AUTO) 6.9 %; NEUTROPHILS # (AUTO) 11.5 10^3/uL (1.5-6.6); NEUTROPHILS % (AUTO) 73.8 %; PLT - PLATELET COUNT 395 10^3/uL (130-450); WHITE BLOOD COUNT 15.6 x10^3/uL (4.8-10.8)
== END 2018-08-03 23:59 | disposition home or self-care (01) ==
LOC: LAB.N 11:44
PROVIDERS: ATTEND Obstetrics & Gynecology
DX: D62 Acute posthemorrhagic anemia (principal)
CPT/HCPCS: 36415; 85025

== ENCOUNTER 2018-08-09 14:07 | Outpatient (CLI) | payer MEDICAID ==
[2018-08-09 19:07] LABS: BASOPHILS # (AUTO) 0.1 10^3/uL (0.0-0.1); BASOPHILS % (AUTO) 1.2 %; EOSINOPHILS # (AUTO) 0.2 10^3/uL (0.0-0.7); EOSINOPHILS % (AUTO) 1.8 %; HGB - HEMOGLOBIN 12.5 g/dL (12.0-16.0); LYMPHOCYTES # (AUTO) 2.3 10^3/uL (1.5-3.5); LYMPHOCYTES % (AUTO) 25.1 %; MEAN CORPUSCULAR HEMOGLOBIN 31.1 pg (27.0-31.0); MEAN CORPUSCULAR HGB CONC 33.2 g/dL (32.0-36.0); MEAN CORPUSCULAR VOLUME 93.9 fL (81.0-99.0); MEAN PLATELET VOLUME 6.5 fL (7.9-10.8); MONOCYTES # (AUTO) 0.9 10^3/uL (0.0-1.0); MONOCYTES % (AUTO) 10.1 %; NEUTROPHILS # (AUTO) 5.7 10^3/uL (1.5-6.6); NEUTROPHILS % (AUTO) 61.8 %; PLT - PLATELET COUNT 426 10^3/uL (130-450); RED BLOOD COUNT 4.03 10^6/uL (4.20-5.40); RED CELL DISTRIBUTION WIDTH 14.9 % (12.0-15.0); WHITE BLOOD COUNT 9.2 x10^3/uL (4.8-10.8)
== END 2018-08-09 23:59 | disposition home or self-care (01) ==
LOC: LAB.N 14:07
PROVIDERS: ATTEND Obstetrics & Gynecology
DX: D72.829 Elevated white blood cell count, unspecified (principal)
CPT/HCPCS: 36415; 85025

== ENCOUNTER 2018-08-09 14:34 | Outpatient (CLI) | payer MEDICAID ==
--- NOTE | 2018-08-17 11:27 | MISCELLANEOUS PROVIDER NOTE ---
Miscellaneous Provider Note - - Note: See my progress note from 08/08/18. Peripheral flow cytometry test on patient came back as follows: RESULT: NO IMMUNOPHENOTYPIC ABNORMALITIES DETECTED Please see report for comment section. Part of the comment section states, "It states that low-grade myelodysplastic syndromes or myeloproliferative neoplasms may not show specific immunophenotype and often cannot be ruled out by flow cytometry." The patient thus needs to be referrred to a college or university department head for further evaluation. I have contacted Yadira Cortes, [facility] Volunteer Services Specialist, about this patient and her test results, as I am off this week and will not be back in hospital until 08/23/18. I have asked Ms. Cortes to contact patient and give her the test results and explain the comment section as well and my recommendation for patient to be further evaluated by a college or university department head to investigate this patient's episodes of severe leukocytosis when in the hospital her last admission, and history of same with other hosptal admissions. I have asked Yadira to also coordinate with managed care for patient to be seen by nearest available college or university department head for this and then notify the patient of all the above. She voiced understanding, will contact patient with test result/comment and referral information.
--- NOTE | 2018-08-20 08:59 | MISCELLANEOUS PROVIDER NOTE ---
Miscellaneous Provider Note - - Note: See my discharge summary dated 07/28/18 and misc. note dated 08/09/18. Case discussed on 08/17/18 with Yadira Cortes, OB First Line Production Supervisor. Patient needing to see reconciliation manager despite negative peripheral flow cytometry, for further evaluation. Patient has appointment today at [address] Marcelo in [facility].
== END 2018-08-09 14:35 | disposition home or self-care (01) ==
LOC: LAB 14:34
PROVIDERS: ATTEND Obstetrics & Gynecology
DX: D62 Acute posthemorrhagic anemia (principal); D72.829 Elevated white blood cell count, unspecified
CPT/HCPCS: 36415; 81599; 85025; 88184; 88185; 88189

== ENCOUNTER 2018-09-28 06:13 | Emergency (ER) | payer MEDICAID ==
[2018-09-28 07:17] LABS: BASOPHILS % (AUTO) 0.2 %; EOSINOPHILS # (AUTO) 0.2 10^3/uL (0.0-0.7); EOSINOPHILS % (AUTO) 1.9 %; HGB - HEMOGLOBIN 11.7 g/dL (12.0-16.0); LYMPHOCYTES # (AUTO) 1.4 10^3/uL (1.5-3.5); LYMPHOCYTES % (AUTO) 12.8 %; MEAN CORPUSCULAR HEMOGLOBIN 30.4 pg (27.0-31.0); MEAN CORPUSCULAR HGB CONC 33.4 g/dL (32.0-36.0); MEAN PLATELET VOLUME 6.8 fL (7.9-10.8); MONOCYTES % (AUTO) 8.6 %; NEUTROPHILS # (AUTO) 8.6 10^3/uL (1.5-6.6); NEUTROPHILS % (AUTO) 76.5 %; PLT - PLATELET COUNT 319 10^3/uL (130-450); RED BLOOD COUNT 3.84 10^6/uL (4.20-5.40); RED CELL DISTRIBUTION WIDTH 14.4 % (12.0-15.0); WHITE BLOOD COUNT 11.2 x10^3/uL (4.8-10.8)
[2018-09-28 07:19] LABS: ALBUMIN/GLOBULIN RATIO 1.2 (1.0-2.2); BILIRUBIN,TOTAL 0.4 mg/dL (0.2-1.0); CALCIUM 9.1 mg/dL (8.5-10.3); CREATININE 0.7 mg/dL (0.4-1.0); TOTAL PROTEIN 7.3 g/dL (6.7-8.2)
[2018-09-28] MEDS ORDERED: LIDOCAINE VISCOUS 2% 15 ML UDC MM STA ×2 (07:22→07:58)
[2018-09-28] MEDS ORDERED: MAG HYDROX/AL HYDROX/SIMETH 30 ML UDC PO STA ×2 (07:23→07:58)
--- NOTE | 2018-09-28 07:25 | ED Physician Documentation ---
PD HPI ABD PAIN - Stated complaint Stated Complaint: ABD PX - Chief complaint Chief Complaint: Abd Pain - History obtained from History obtained from: Patient, Family - History of Present Illness Timing - onset: How many days ago (2) Timing - duration: Days (2) Timing - details: Gradual onset, Still present Quality: Sharp, Pain Location: Epigastric Worsened by: Eating, Palpation Associated symptoms: Nausea. No: Vomiting Similar symptoms before: Has not had sx before Recently seen: Not recently seen - Additional information Additional information: Previously well 30-year-old female has had epigastric abdominal pain for the past 2 days. She states that it is present anteriorly and radiates around to her back. She feels that when she eats the pain gets somewhat worse she has had some little bit of relief with some Tylenol. She denies any vomiting she has had some nausea she has not had this pain previously. Review of Systems Constitutional: denies: Fever Eyes: denies: Decreased vision Ears: denies: Ear pain Nose: denies: Congestion Throat: denies: Sore throat Cardiac: denies: Chest pain / pressure, Palpitations Respiratory: denies: Dyspnea, Cough GI: reports: Abdominal Pain, Nausea. denies: Vomiting, Constipation, Diarrhea : denies: Dysuria, Frequency PD PAST MEDICAL HISTORY - Past Medical History Cardiovascular: None Respiratory: None Neuro: None Endocrine/Autoimmune: None GI: None POMOLOGIST: Ovarian cysts : None HEENT: Other Musculoskeletal: None Derm: None - Past Surgical History Past Surgical History: Yes General: Appendectomy - Present Medications Home Medications: Ambulatory Orders Medication Instructions Recorded Confirmed Pnv95/Ferrous Fumarate/FA tab ORAL DAILY 11/29/17 [ Vitamin Tablet] Sucralfate [Carafate] 1 gm PO ACHS #60 tablet 09/28/18 - Allergies Allergies/Adverse Reactions: Allergies Allergy/AdvReac Type Severity Reaction Status Date / Time No Known Drug Allergies Allergy Verified 02/21/18 11:13 - Social History Does the pt smoke?: Yes Smoking Status: Current every day smoker Does the pt drink ETOH?: No Does the pt have substance abuse?: No - Immunizations Immunizations are current?: Yes - POLST Patient has POLST: No PD ED PE NORMAL - Vitals Vital signs reviewed: Yes (hypertensive ) - General General: Alert and oriented X 3, No acute distress, Well developed/nourished - HEENT HEENT: Atraumatic, PERRL, EOMI - Neck Neck: Supple, no meningeal sign - Cardiac Cardiac: RRR, No murmur - Respiratory Respiratory: No respiratory distress, Clear bilaterally - Abdomen Abdomen: Soft, Other (epigastric tenderness is mild and more to the right. Rachel's is negative. ) - Back Back: No CVA TTP, No spinal TTP - Derm Derm: Normal color, Warm and dry, No rash - Extremities Extremities: No deformity, No edema - Neuro Neuro: Alert and oriented X 3, quality assurance practice manager 2-12 intact, No motor deficit, No sensory deficit, Normal speech Eye Opening: Spontaneous Motor: Obeys Commands Verbal: Oriented GCS Score: 15 - Psych Psych: Normal mood, Normal affect Results - Vitals Vitals: Vital Signs - 24 hr 09/28/18 09/28/18 06:22 06:24 Temperature 37 C Heart Rate 68 62 Respiratory 18 15 Rate Blood Pressure 119/89 H 121/68 O2 Saturation 100 98 Oxygen O2 Source Room air - Labs Labs: Laboratory Tests 09/28/18 09/28/18 06:40 06:40 WBC 11.2 H RBC 3.84 L Hgb 11.7 L Hct 35.0 L MCV 91.0 MCH 30.4 MCHC 33.4 RDW 14.4 Plt Count 319 MPV 6.8 L Neut # (Auto) 8.6 H Lymph # (Auto) 1.4 L [place] # (Auto) 1.0 Eos # (Auto) 0.2 Baso # (Auto) 0.0 Absolute Nucleated RBC 0.00 Nucleated RBC % 0.0 Sodium 136 Potassium 3.8 Chloride 105 Carbon Dioxide 20 L Anion Gap 11.0 BUN 14 Creatinine 0.7 Estimated GFR (MDRD) 107 Glucose 91 Calcium 9.1 Total Bilirubin 0.4 AST 22 ALT 17 Alkaline Phosphatase 61 Total Protein 7.3 Albumin 4.0 Globulin 3.3 Albumin/Globulin Ratio 1.2 Lipase 27 Procedures - Bedside sono Bedside sono by EMP: With use of bedside ultrasound of the right upper quadrant is imaged the gallbladder is without obvious stone the area is sonographically tender not necessarily reproducing the pain the patient is experiencing. The right kidney is imaged sonographically nontender there is minimal hydro-nephrosis present. PD MEDICAL DECISION MAKING - ED course Complexity details: reviewed results, re-evaluated patient, considered differential, d/w patient, d/w family ED course: Previously well 22-year-old female with epigastric abdominal pain is administrated a GI cocktail consisting of viscous lidocaine and Mylanta she has relief of her pain with this. She feels that this is likely the Excedrin she was taking that irritated her stomach. And she does recall taking this medication on an empty stomach. Departure - Departure Disposition: 01 Home, Self Care Clinical Impression: Gastritis Qualifiers: Gastritis type: unspecified gastritis Chronicity: acute Gastritis bleeding: without bleeding Qualified Code(s): K29.00 - Acute gastritis without bleeding Condition: Stable Instructions: ED PUD Vs Gastritis Follow-Up: [facility] [Provider Group] Prescriptions: Sucralfate [Carafate] 1 gm PO ACHS #60 tablet Comments: Today it appears the pain you are having in your abdomen is related to irritation of the stomach lining. My recommendation is to obtain medication that will reduce the acid in your stomach and take it on a regular basis for the next 10 to 14 days. Medications such as Pepcid AC or omeprazole. In addition take the Carafate as prescribed before eating and at bedtime to aid in the healing.
[2018-09-28 07:49] VITALS: BP 121/68
[2018-09-28] MEDS ORDERED: SUCRALFATE 1 GM/10 ML UDC PO STA (07:59)
[2018-09-28 08:27] LABS: BILIRUBIN,URINE NEGATIVE (NEGATIVE); GLUCOSE, URINE (UA) NEGATIVE (NEGATIVE); KETONES,URINE (UA) NEGATIVE (NEGATIVE); LEUKOCYTE ESTERASE, URINE NEGATIVE (NEGATIVE); NITRITE,URINE NEGATIVE (NEGATIVE); OCCULT BLOOD,URINE NEGATIVE (NEGATIVE); PROTEIN,URINE NEGATIVE (NEGATIVE); UROBILINOGEN,URINE 0.2 (NORMAL) E.U./dL (NORMAL)
[2018-09-28 08:29] LABS: CLARITY,URINE CLEAR (CLEAR)
== END 2018-09-28 08:38 | disposition home or self-care (01) ==
LOC: ED 06:13
DX: K29.00 Acute gastritis without bleeding (principal); F17.200 Nicotine dependence, unspecified, uncomplicated
CPT/HCPCS: 36415; 80053; 81003; 83690; 85025; 99283; A9270; 81001; 87086

== ENCOUNTER 2019-05-14 14:49 | Outpatient (CLI) | payer MEDICAID ==
--- NOTE | 2019-05-14 17:03 | Ultrasound Report ---
Reason: TEST POSITIVE Procedure Date: 05/14/2019 Accession Number: [id number] / [id number] Procedure: US - OB First Trimester CPT Code: Final Report FULL RESULT: EXAM: FIRST TRIMESTER OBSTETRIC ULTRASOUND (Less than 11 weeks) EXAM DATE: 05/14/2019 04:34 PM. CLINICAL HISTORY: TEST POSITIVE. LMP: Unknown. COMPARISONS: None. TECHNIQUE: Transabdominal and transvaginal ultrasound examination with static image documentation. CLINICAL DATES: EGA 7 weeks/5 days with LYNNE 7 23 20 based on LMP. ASSESSMENT: Gestational Sac: Single intrauterine. Mean gestational sac diameter: 3.23 cm = 8 weeks/3 days. Embryo: CRL (crown-rump length) 1.13 cm = 7 weeks/2 days. Cardiac activity: 146 beats per minute. Yolk sac: 4 mm. Amniotic fluid: Not accurately assessed at this gestational age. Early placenta: Not visible at this gestational age. Other: No perigestational fluid collection demonstrated. MATERNAL STRUCTURES: Uterus: Anteverted. Cervix: Closed. Right Ovary/Adnexa: The ovary measures 2.9 x 2.2 x 2.3 cm, volume 7.6 cc. Unremarkable. Right ovarian cyst measures 1.6 x 1.2 x 1.3. Left Ovary/Adnexa: The ovary measures 2.3 x 1.5 x 1.5 cm, volume 2.8 cc. Unremarkable. Free Fluid: None. Other: None. IMPRESSION: 1. Single viable intrauterine at EGA 7 weeks/2 days with LYNNE 7 26 20 based on crown-rump length, which is concordant with clinical dates. 2. No perigestational fluid collection. RADIA
== END 2019-05-14 14:50 | disposition home or self-care (01) ==
LOC: DI 14:49
PROVIDERS: ATTEND Nurse Practitioner Obstetrics & Gynecology
DX: Z32.01 Encounter for pregnancy test, result positive (principal)
CPT/HCPCS: 76801; 76817

== ENCOUNTER 2019-05-21 08:00 | Outpatient (CLI) | payer MEDICAID ==
[2019-05-22 14:37] LABS: MUDS CUTOFF CONCENTRATIONS CUTOFF CONC BELOW:
[2019-05-22 14:42] LABS: BILIRUBIN,URINE NEGATIVE (NEGATIVE); GLUCOSE, URINE (UA) NEGATIVE (NEGATIVE); KETONES,URINE (UA) NEGATIVE (NEGATIVE); LEUKOCYTE ESTERASE, URINE NEGATIVE (NEGATIVE); NITRITE,URINE NEGATIVE (NEGATIVE); OCCULT BLOOD,URINE NEGATIVE (NEGATIVE); PROTEIN,URINE NEGATIVE (NEGATIVE); UROBILINOGEN,URINE 0.2 (NORMAL) E.U./dL (NORMAL)
[2019-05-22 15:06] LABS: BACTERIA,URINE Rare /HPF (None Seen); CLARITY,URINE CLEAR (CLEAR); RBC,URINE 0-5 /HPF (0-5); SQUAMOUS EPITHELIAL CELL,UR RARE Squamous (<= Few)
[2019-05-22 15:07] LABS: AMORPHOUS SEDIMENT,UR Few /LPF; CRYSTALS,URINE 11-25 Ca Oxalate /LPF; MUCUS,URINE Few Strands
[2019-05-22 15:08] LABS: AMPHETAMINE SCREEN,URINE NEGATIVE (NEGATIVE); BENZODIAZEPINES SCREEN, URINE NEGATIVE (NEGATIVE); COCAINE SCREEN URINE NEGATIVE (NEGATIVE); METHADONE SCREEN, URINE NEGATIVE (NEGATIVE); METHAMPHETAMINES SCREEN, URINE NEGATIVE (NEGATIVE); OPIATE SCREEN, URINE NEGATIVE (NEGATIVE); OXYCODONE SCREEN, URINE NEGATIVE (NEGATIVE); PROPOXYPHENE SCREEN, URINE NEGATIVE (NEGATIVE); TRICYCLIC ANTIDEPRESSANT,URINE NEGATIVE (NEGATIVE)
== END 2019-05-21 23:59 | disposition home or self-care (01) ==
LOC: LAB.R 08:00
PROVIDERS: ATTEND Obstetrics & Gynecology
DX: Z34.90 Encounter for supervision of normal pregnancy, unspecified, unspecified trimester (principal)
CPT/HCPCS: 80306; 81001; 87086

== ENCOUNTER 2019-08-06 08:05 | Outpatient (CLI) | payer MEDICAID ==
--- NOTE | 2019-08-06 11:47 | Ultrasound Report ---
Reason: SCREENING FOR GENETIC DEFECTS Procedure Date: 08/06/2019 Accession Number: [id number] / [id number] Procedure: US - OB Detailed Eval CPT Code: Final Report FULL RESULT: EXAM: COMPLETE OBSTETRICAL ULTRASOUND EXAM DATE: 08/06/2019 10:58 AM. CLINICAL HISTORY: anatomic survey. COMPARISON: OB FIRST TRIMESTER 05/14/2019 3:36 PM. TECHNIQUE: Real-time sonographic evaluation of the fetus performed by the cook supervisor. Multiple shipping services sales representative static images were saved for review. DATING: Established EGA 19 weeks 5 days with LYNNE 12/26/2019 based on LMP. EGA 19 weeks 5 days with LYNNE 12/26/2019 based on the current ultrasound. GENERAL EVALUATION Gore . Cardiac activity: 136 bpm. movement: Visualized. Presentation: Transverse breech. Placenta: Anterior position. No evidence for previa. Umbilical cord: 3 vessel cord. Central placental cord origin. Amniotic fluid: Subjectively normal. MVP 5.0 cm and [place] 14.5 cm. BIOMETRY Bi-Parietal Diameter (BPD): 4.5 cm, 19 weeks 6 days Head Circumference (HC): 16.8 cm, 19 weeks 4 days Abdominal Circumference (AC): 14.6 cm, 19 weeks 6 days Femur Length (FL): 3.0 cm, 19 weeks 2 days Estimated Weight: 304 g, 41st percentile for 19 weeks 5 days. ANATOMY The intracranial structures, profile, face/nose/lips, spine, 4 chamber heart and outflow tracts, stomach, abdominal wall and cord insertion, diaphragm, kidneys, bladder, and extremities were visualized and demonstrate no abnormality. MATERNAL STRUCTURES Uterus: Unremarkable. Cervix: Long and closed. Transabdominal length 3.9 cm. Right ovary/adnexa: Unremarkable. Left ovary/adnexa: Unremarkable. Free fluid: None. IMPRESSION: 1. Gore live intrauterine with gestational age 19 weeks 5 days based on LMP. 2. Estimated weight is within expected limits for assigned dating. 3. Normal anatomic survey. No anatomic abnormalities are detected at this time. RADIA
== END 2019-08-06 08:06 | disposition home or self-care (01) ==
LOC: DI 08:05
PROVIDERS: ATTEND Obstetrics & Gynecology
DX: Z36.8A Encounter for antenatal screening for other genetic defects (principal)
CPT/HCPCS: 76811

== ENCOUNTER 2019-08-13 15:01 | Outpatient (CLI) | payer MEDICAID ==
[2019-08-13 15:29] LABS: BASOPHILS % (AUTO) 0.4 %; EOSINOPHILS # (AUTO) 0.1 10^3/uL (0.0-0.7); HGB - HEMOGLOBIN 9.9 g/dL (12.0-16.0); LYMPHOCYTES # (AUTO) 1.5 10^3/uL (1.5-3.5); LYMPHOCYTES % (AUTO) 13.4 %; MEAN CORPUSCULAR HEMOGLOBIN 30.7 pg (27.0-31.0); MEAN CORPUSCULAR HGB CONC 32.5 g/dL (32.0-36.0); MEAN CORPUSCULAR VOLUME 94.4 fL (81.0-99.0); MEAN PLATELET VOLUME 8.1 fL (7.9-10.8); MONOCYTES # (AUTO) 0.8 10^3/uL (0.0-1.0); MONOCYTES % (AUTO) 7.2 %; NEUTROPHILS # (AUTO) 8.8 10^3/uL (1.5-6.6); NEUTROPHILS % (AUTO) 77.4 %; PLT - PLATELET COUNT 229 10^3/uL (130-450); RED BLOOD COUNT 3.23 10^6/uL (4.20-5.40); RED CELL DISTRIBUTION WIDTH 13.5 % (12.0-15.0); WHITE BLOOD COUNT 11.3 x10^3/uL (4.8-10.8)
[2019-08-14 12:25] LABS: HEPATITIS C ANTIBODY NON-REACTIVE (NON-REACTIVE)
[2019-08-14 12:26] LABS: HEPATITIS B SURFACE ANTIGEN NON-REACTIVE (NON-REACTIVE)
[2019-08-14 14:15] LABS: HIV AG/AB 4TH GEN NON-REACTIVE (NON-REACTIVE)
== END 2019-08-13 15:02 | disposition home or self-care (01) ==
LOC: LAB 15:01
PROVIDERS: ATTEND Obstetrics & Gynecology
DX: Z36.8A Encounter for antenatal screening for other genetic defects (principal)
CPT/HCPCS: 36415; 81599; 85025; 86592; 86762; 86803; 86850; 86900; 86901; 87340; 87389

== ENCOUNTER 2019-08-24 09:41 | Outpatient (CLI) | payer MEDICAID ==
[2019-08-24 09:56] VITALS: BP 106/56
[2019-08-24 10:16] LABS: BILIRUBIN,URINE NEGATIVE (NEGATIVE); GLUCOSE, URINE (UA) NEGATIVE (NEGATIVE); KETONES,URINE (UA) NEGATIVE (NEGATIVE); LEUKOCYTE ESTERASE, URINE NEGATIVE (NEGATIVE); NITRITE,URINE NEGATIVE (NEGATIVE); OCCULT BLOOD,URINE TRACE-INTA (NEGATIVE); PH,URINE 6.5 PH (5.0-7.5); PROTEIN,URINE NEGATIVE (NEGATIVE); UROBILINOGEN,URINE 0.2 (NORMAL) E.U./dL (NORMAL)
[2019-08-24 10:21] LABS: CLARITY,URINE CLEAR (CLEAR)
--- NOTE | 2019-08-24 10:57 | HISTORY & PHYSICAL EXAMINATION ---
Admit History - Visit Reason Visit Reason: Other (23yo at 22 2/7 weeks by LMP c/w second trimester scan presents with c/o bilateral sharp groin pain from labia radiating to iliac crests. Worse with certain movement. No weakness or numbness. No vag bleeding or fluid leak. Intermittently noting movement. No n/v/f/c or dysuria. Feeling a little pressure on the bladder.) - : 3 Parity: 1 Premature: 0 Ectopic: 0 : 1 Care: positive: [facility] Risk/History: positive: Other (Scant care. Poor dentition) Complications This : positive: Other (Anemia (9.9/30.5 on 08/13/19)) Smoking Status: Former smoker - Mother's Labs Mother's Blood Type: positive: O Mother's RH: positive: Positive Rubella Status: positive: Immune (GC/chlam neg Other PN labs not reported) Meds/Allgy - Home Medications Home Medications: Ambulatory Orders Medication Instructions Recorded Confirmed Pnv No.95/Ferrous Fum/Folic AC 1 tab PO DAILY 08/24/19 08/24/19 [ Caplet] - Allergies Allergies/Adverse Reactions: Allergies Allergy/AdvReac Type Severity Reaction Status Date / Time No Known Drug Allergies Allergy Verified 11/26/18 09:07 Review of Systems - All Other Systems All Other Systems: reports: Other (As noted above) Physical - Abdominal Exam Vital Signs: Temp Pulse Resp BP Pulse Ox 97.7 F 83 18 106/56 L 100 08/24/19 09:52 08/24/19 09:52 08/24/19 09:52 08/24/19 09:52 08/24/19 09:52 Contraction Frequency (min/apart): none Uterine Resting Tone: positive: Soft (Abdomen soft, non-tender. Gravid uterus S=D. Mild tenderness to palpation along inguinal canal No CVA tenderness) - Monitoring Heart Rate Baseline: 130-150's - Presentation Presentation: positive: Vertex (By bedside scan; active single fetus. normal fluid, anterior low lying placenta) - Vaginal Exam Membranes: positive: Membranes intact Plan for Labor - Plan For Labor Plan for Labor: 23yo at 22 2/7 weeks with findings c/w round ligament pain. UA neg. Labs significant for anemia, previously shown to be iron deficiency. Pt notes constipation and mild nausea with iron supplements. Recommend IV iron as this has been a chronic problem for her. Current deficiency calculated to be 950mg for target hgb of 13.0. Would recommend 1000mg Infed now and reevaluate need for additional dose at 32-34 weeks. Reassured with regard to her pain; strategies discussed. F/U as scheduled
== END 2019-08-24 11:00 | disposition home or self-care (01) ==
LOC: WFO 09:41 → FBP 09:44 → WFO 11:00
PROVIDERS: ATTEND Obstetrics & Gynecology
DX: O99.89 Other specified diseases and conditions complicating pregnancy, childbirth and the puerperium (principal); R10.2 Pelvic and perineal pain; O99.012 Anemia complicating pregnancy, second trimester; D50.9 Iron deficiency anemia, unspecified; Z3A.22 22 weeks gestation of pregnancy; Z87.891 Personal history of nicotine dependence
CPT/HCPCS: 81001; 81003; 87086; 99214

== ENCOUNTER 2019-10-29 10:59 | Outpatient (CLI) | payer MEDICAID ==
[2019-10-29 14:12] LABS: HGB - HEMOGLOBIN 9.2 g/dL (12.0-16.0); MEAN CORPUSCULAR HGB CONC 32.4 g/dL (32.0-36.0); MEAN CORPUSCULAR VOLUME 95.6 fL (81.0-99.0); MEAN PLATELET VOLUME 8.9 fL (7.9-10.8); RED BLOOD COUNT 2.97 10^6/uL (4.20-5.40); RED CELL DISTRIBUTION WIDTH 13.4 % (12.0-15.0)
== END 2019-10-29 23:59 | disposition home or self-care (01) ==
LOC: LAB.WCP 10:59
PROVIDERS: ATTEND Obstetrics & Gynecology
DX: O99.019 Anemia complicating pregnancy, unspecified trimester (principal); Z3A.00 Weeks of gestation of pregnancy not specified; D64.9 Anemia, unspecified
CPT/HCPCS: 36415; 82950; 85027

== ENCOUNTER 2019-11-16 18:12 | Outpatient (CLI) | payer MEDICAID ==
--- NOTE | 2019-11-16 18:27 | PROVIDER PROGRESS NOTE ---
- HPI Chief Complaint: Pain, non-labor (24yo at 34w3d by LMP c/w first trimester scan presents with c/o vaginal pressure intermittently since 11/11 when she was seen in clinic. FFN was +, cervix noted to be 07/04/-1. She denies contractions, notes cramping. Denies fluid leak, bleeding, dysuria. No n/v/f/c.) Current : complicated by poor weight gain, non-compliance, iron deficiency anemia, abn glucola, h/o tobacco abuse, states quit w this . Seen multiple times with same general complaints. Has not followed up for iron infusion or 3h GTT. - Procedures OB Procedure Performed: NST Diagnosis/Indication for NST: Other (See above) Service Date of procedure: 11/16/19 Procedure Details: Reactive, no contractions BPP 8/8, vertex, high, ample fluid, anterior placenta. Very active fetus. Exam - Exam General: Alert, Oriented x3, Cooperative, No acute distress Cardiovascular: Regular rate Abdomen: Soft, No tenderness, Other (Gravid, S=D) Extremities: No edema Skin: No significant lesion Psych/Mental Status: Mental status NL L&D Objective - Lab Results Lab Results: 11/16/19 18:30 Other Lab Results: Lab Results x24hrs 11/16/19 Range/Units 18:30 WBC 11.1 H (4.8-10.8) x10^3/uL RBC 2.87 L (4.20-5.40) 10^6/uL Hgb 9.3 L (12.0-16.0) g/dL Hct 26.9 L (37.0-47.0) % MCV 93.7 (81.0-99.0) fL MCH 32.4 H (27.0-31.0) pg MCHC 34.6 (32.0-36.0) g/dL RDW 13.6 (12.0-15.0) % Plt Count 225 (130-450) 10^3/uL MPV 8.2 (7.9-10.8) fL - Exam Physical Findings Comment/Other: Scant normal vaginal DC, cervix long/closed FFN collected Assessment/Plan - Assessment/Plan Assessment: No change in cervix since exam 11/11. Reassuring, normal testing. Labs pending. IV iron today Reassess after infusion complete.
[2019-11-16 18:36] LABS: HGB - HEMOGLOBIN 9.3 g/dL (12.0-16.0); MEAN CORPUSCULAR HEMOGLOBIN 32.4 pg (27.0-31.0); MEAN CORPUSCULAR HGB CONC 34.6 g/dL (32.0-36.0); MEAN CORPUSCULAR VOLUME 93.7 fL (81.0-99.0); MEAN PLATELET VOLUME 8.2 fL (7.9-10.8); RED BLOOD COUNT 2.87 10^6/uL (4.20-5.40); RED CELL DISTRIBUTION WIDTH 13.6 % (12.0-15.0); WHITE BLOOD COUNT 11.1 x10^3/uL (4.8-10.8)
[2019-11-16] MEDS ORDERED: IRON DEXTRAN IV ONE (18:43)
[2019-11-16] MEDS ORDERED: SODIUM CHLORIDE 0.9% IV ONE (18:43)
[2019-11-16] MEDS ORDERED: SODIUM CHLORIDE FLUSH 0.9% 10 ML SYRINGE IVP PRN (18:52)
[2019-11-16 18:53] LABS: BILIRUBIN,URINE NEGATIVE (NEGATIVE); GLUCOSE, URINE (UA) NEGATIVE (NEGATIVE); KETONES,URINE (UA) NEGATIVE (NEGATIVE); LEUKOCYTE ESTERASE, URINE NEGATIVE (NEGATIVE); NITRITE,URINE NEGATIVE (NEGATIVE); OCCULT BLOOD,URINE NEGATIVE (NEGATIVE); PROTEIN,URINE NEGATIVE (NEGATIVE); UROBILINOGEN,URINE 0.2 (NORMAL) E.U./dL (NORMAL)
[2019-11-16 18:54] LABS: CLARITY,URINE CLEAR (CLEAR)
[2019-11-16 18:59] VITALS: BP 114/64
[2019-11-16] MEDS ORDERED: ONDANSETRON 4 MG/2 ML VIAL IVP SCH (19:00)
--- NOTE | 2019-11-16 19:02 | PROVIDER PROGRESS NOTE ---
Subjective - Prog Note Date Prog Note Date: 11/16/19 Prog Note Time: 19:00 - Subjective Subjective: UA signif for sp gr of 1.030 c/w dehydration. Hct 26.9, however value will decrease with hydration. IV iron now as noted. Will rehydrate with LR. Expect can be discharged home when therapy complete. Encouraged to f/u ROSEANNE for 3h GTT. Otherwise f/u as scheduled Objective - Vital Signs/Intake & Output Vital Signs: Vital Signs x48h Temp Pulse Resp BP Pulse Ox 11/16/19 18:56 98.2 F 91 18 114/64 100 - Lab Results Fish Bones: 11/16/19 18:30 Other Labs: Lab Results x24hrs 11/16/19 11/16/19 Range/Units 18:30 18:00 WBC 11.1 H (4.8-10.8) x10^3/uL RBC 2.87 L (4.20-5.40) 10^6/uL Hgb 9.3 L (12.0-16.0) g/dL Hct 26.9 L (37.0-47.0) % MCV 93.7 (81.0-99.0) fL MCH 32.4 H (27.0-31.0) pg MCHC 34.6 (32.0-36.0) g/dL RDW 13.6 (12.0-15.0) % Plt Count 225 (130-450) 10^3/uL MPV 8.2 (7.9-10.8) fL Urine Color YELLOW Urine Clarity CLEAR (CLEAR) Urine pH 7.0 (5.0-7.5) PH Ur Specific [place] >=1.030 H (1.002-1.030) Urine Protein NEGATIVE (NEGATIVE) mg/dL Urine Glucose (UA) NEGATIVE (NEGATIVE) mg/dL Urine Ketones NEGATIVE (NEGATIVE) mg/dL Urine Occult Blood NEGATIVE (NEGATIVE) Urine Nitrite NEGATIVE (NEGATIVE) Urine Bilirubin NEGATIVE (NEGATIVE) Urine Urobilinogen 0.2 (NORMAL) (NORMAL) E.U./dL Ur Leukocyte Esterase NEGATIVE (NEGATIVE) Ur Microscopic Review NOT INDICATED Urine Culture Comments NOT INDICATED
[2019-11-16] MEDS ORDERED: LACTATED RINGERS 1,000 ML IV ONE (19:03)
== END 2019-11-16 20:02 | disposition home or self-care (01) ==
LOC: WFO 18:12 → FBP 18:14 → WFO 20:02
PROVIDERS: ATTEND Obstetrics & Gynecology
DX: O99.013 Anemia complicating pregnancy, third trimester (principal); D50.9 Iron deficiency anemia, unspecified; Z3A.34 34 weeks gestation of pregnancy; O26.13 Low weight gain in pregnancy, third trimester; O99.810 Abnormal glucose complicating pregnancy; O99.89 Other specified diseases and conditions complicating pregnancy, childbirth and the puerperium; R82.998 Other abnormal findings in urine; Z91.19 Patient's noncompliance with other medical treatment and regimen; T45.4X6A Underdosing of iron and its compounds, initial encounter; Z91.128 Patient's intentional underdosing of medication regimen for other reason; F17.201 Nicotine dependence, unspecified, in remission
CPT/HCPCS: 81003; 82731; 85027; 96365; 96375; 99213; J1750; J7120; 81001; 87086

== ENCOUNTER 2019-11-26 10:45 | Outpatient (CLI) | payer MEDICAID ==
[2019-11-26 21:52] LABS: TRICHOMONAS VAGINALIS DNA NEGATIVE (NEGATIVE)
== END 2019-11-26 23:59 | disposition home or self-care (01) ==
LOC: LAB.R 10:45
PROVIDERS: ATTEND Obstetrics & Gynecology
DX: Z34.90 Encounter for supervision of normal pregnancy, unspecified, unspecified trimester (principal)
CPT/HCPCS: 87491; 87591; 87661; 87797

== ENCOUNTER 2019-11-29 17:03 | Outpatient (CLI) | payer MEDICAID ==
[2019-11-29] MEDS ORDERED: PROMETHAZINE 25 MG/1 ML VIAL IM ONE (19:32)
[2019-11-29] MEDS ORDERED: SODIUM CHLORIDE FLUSH 0.9% 10 ML SYRINGE IVP PRN (19:32)
[2019-11-29] MEDS ORDERED: MORPHINE 10 MG/ML VIAL IM ONE (19:32)
[2019-11-29 20:19] VITALS: BP 118/72
--- NOTE | 2019-11-29 21:08 | PROVIDER PROGRESS NOTE ---
- HPI Current : Current EDU 12/26/19 Gestation 36 Weeks and 1 Days 3 Para 1 Vital Signs Temperature 97.7 F 11/29/19 17:22 Heart Rate 89 11/29/19 17:22 Respiratory Rate 16 11/29/19 17:22 Blood Pressure 114/62 11/29/19 17:22 O2 Saturation 99 11/29/19 17:22 Temperature 98.4 F 11/29/19 20:15 Heart Rate 90 11/29/19 20:15 Respiratory Rate 20 11/29/19 20:15 Blood Pressure 118/72 11/29/19 20:15 O2 Saturation 97 11/29/19 20:15 - Exam 24 yo at 36+1 wga with fetus in breech presentation here with pelvic pain. Reports feeling like baby is "trying to kick his way out". No LOF or VB. No change in health hx since time of prior exam ROS: As per HPI, remaining systems are negative. GEN: NAD RESP: Nl effort CV: RR ABD: S&NT/ND EXT: WWP NEURO: A&O PSYCH: appropriate affect SVE 0/30/high per RN exam Cat I tracing - Procedures OB Procedure Performed: Other NST Procedure: NST Procedure Start Date 11/29/19 Start Time 17:10 Stop Time 18:00 Vibroacoustic Stimulation Used No Patient States Movement Yes EFM 125 mod treva 15x15 accels no decels TOCO: intermittent at presentation, quiet after meal and hydration Service Date of procedure: 11/29/19 Procedure Details: Reassuring exam with no evidence of pending delivery Patient had a Cat I tracing/Reactive NST Therapeutic rest via morphine 5 mg and phenergan 25 mg IM x2 NST following showed moderate variability, no accels or decels Observed post medication to have Cat I tracing and discharged to home
== END 2019-11-29 20:50 | disposition home or self-care (01) ==
LOC: FBP 17:03 → WFO 17:03
PROVIDERS: ATTEND Obstetrics & Gynecology
DX: O99.89 Other specified diseases and conditions complicating pregnancy, childbirth and the puerperium (principal); R10.2 Pelvic and perineal pain; O32.1XX0 Maternal care for breech presentation, not applicable or unspecified; Z3A.36 36 weeks gestation of pregnancy
CPT/HCPCS: 59025; 96372; 99213

== ENCOUNTER 2019-12-03 15:48 | Outpatient (CLI) | payer MEDICAID ==
[2019-12-03] MEDS ORDERED: FERRIC GLUCONATE 125 MG in SODIUM CHLORIDE 0.9% 100ML 100 ML IV ONE (16:20)
[2019-12-03 17:07] VITALS: BP 118/69
== END 2019-12-03 17:45 | disposition home or self-care (01) ==
LOC: WFO 15:48 → FBP 15:51 → WFO 17:45
PROVIDERS: ATTEND Obstetrics & Gynecology
DX: O99.019 Anemia complicating pregnancy, unspecified trimester (principal)
CPT/HCPCS: 96365; J2916

== ENCOUNTER 2019-12-04 07:02 | Outpatient (CLI) | payer MEDICAID ==
[2019-12-04 07:25] VITALS: BP 101/65
--- NOTE | 2019-12-04 18:02 | PROCEDURE REPORT ---
- HPI Diagnosis/Indication for NST: labor Current EDU 12/26/19 Gestation 36 Weeks and 6 Days 3 Para 1 Vital Signs Temperature 98.2 F 12/04/19 07:11 Heart Rate 95 12/04/19 07:11 Respiratory Rate 16 12/04/19 07:11 Blood Pressure 101/65 12/04/19 07:11 Temperature 98.2 F 12/04/19 07:25 Heart Rate 95 12/04/19 07:25 Respiratory Rate 16 12/04/19 07:25 Blood Pressure 101/65 12/04/19 07:25 O2 Saturation - NST Procedure NST Procedure Start Time 17:10 Stop Time 18:00 EFM: 135 mod treva 15x15 accels no decels TOCO: irritable - Results and Plan Findings/Impression: 24 yo at 36+6 wga here with contractions No change in SVE on serial exams Cat I tracing Unstable lie- always assess position if planning to admit Routine PNC
== END 2019-12-04 08:20 | disposition home or self-care (01) ==
LOC: WFO 07:02 → FBP 07:03 → WFO 08:20
PROVIDERS: ATTEND Obstetrics & Gynecology
DX: O32.0XX0 Maternal care for unstable lie, not applicable or unspecified (principal); Z3A.36 36 weeks gestation of pregnancy
CPT/HCPCS: 99213

== ENCOUNTER 2019-12-07 08:20 | Outpatient (CLI) | payer MEDICAID ==
[2019-12-07 08:30] VITALS: BP 111/79
[2019-12-07 09:10] LABS: BILIRUBIN,URINE NEGATIVE (NEGATIVE); GLUCOSE, URINE (UA) NEGATIVE (NEGATIVE); KETONES,URINE (UA) NEGATIVE (NEGATIVE); LEUKOCYTE ESTERASE, URINE NEGATIVE (NEGATIVE); NITRITE,URINE NEGATIVE (NEGATIVE); OCCULT BLOOD,URINE NEGATIVE (NEGATIVE); PROTEIN,URINE NEGATIVE (NEGATIVE); UROBILINOGEN,URINE 0.2 (NORMAL) E.U./dL (NORMAL)
[2019-12-07 09:11] LABS: CLARITY,URINE CLEAR (CLEAR)
--- NOTE | 2019-12-07 09:22 | PROVIDER PROGRESS NOTE ---
- HPI Chief Complaint: Leakage of vaginal fluid (24yo at 37w2d by LMP c/w first trimester US presents with c/o feeling short of breath and leaking fluid since this morning. Also notes a few mild, irregular contractions and loose/soft stool since yesterday. No n/v/f/c or dysuria. No vaginal bleeding, normal activity.) Current : Current EDU 12/26/19 Gestation 37 Weeks and 2 Days 3 Para 1 Vital Signs Temperature 98.4 F 12/07/19 08:29 Heart Rate 94 12/07/19 08:29 Respiratory Rate 20 12/07/19 08:29 Blood Pressure 111/79 12/07/19 08:29 O2 Saturation 100 12/07/19 08:29 Temperature 98.4 F 12/07/19 08:29 Heart Rate 94 12/07/19 08:29 Respiratory Rate 20 12/07/19 08:29 Blood Pressure 111/79 12/07/19 08:29 O2 Saturation 100 12/07/19 08:29 - Exam NST reactive, rare contraction US: normal amniotic fluid volume, presentation slightly oblique/vertex. Preseting part high/floating VSS afeb O2 sat 100% RA RESP/ CTA with normal breath sounds throughout CV/ RRR, borderline tachy, no murmur ABD/ Soft, non-tender, S=D SSE/ No pooling or leak from cervix. Amnisure done. Cervix visually thick, very slightly open - Procedures OB Procedure Performed: NST Diagnosis/Indication for NST: Other (see above) NST Procedure: NST Procedure Start Time 17:10 Stop Time 18:00 - Plan Plan: 24yo at 37w2d GBS neg with fluid leak c/w vaginal DC; amnisure pending but clinically not ruptured. No evidence of respiratory compromise, pt reassured. Not in labor, but exhausted, has not been sleeping. Labs ordered. Will allow to sleep w meds. Treat if anything warrants.
[2019-12-07 09:24] LABS: BACTERIA,URINE Few /HPF (None Seen); CRYSTALS,URINE 0-2 Calcium Oxalate /LPF; RBC,URINE 0-5 /HPF (0-5); SQUAMOUS EPITHELIAL CELL,UR FEW Squamous (<= Few)
[2019-12-07 09:28] LABS: RUPTURE OF MEMBRANES PLUS NEGATIVE (NEGATIVE)
[2019-12-07 09:29] LABS: MEAN CORPUSCULAR HGB CONC 34.2 g/dL (32.0-36.0); MEAN CORPUSCULAR VOLUME 96.4 fL (81.0-99.0); MEAN PLATELET VOLUME 8.9 fL (7.9-10.8); RED BLOOD COUNT 3.03 10^6/uL (4.20-5.40); RED CELL DISTRIBUTION WIDTH 14.2 % (12.0-15.0); WHITE BLOOD COUNT 11.8 x10^3/uL (4.8-10.8)
[2019-12-07] MEDS ORDERED: MORPHINE 10 MG/ML VIAL IVP ONE (09:29)
[2019-12-07] MEDS ORDERED: PROMETHAZINE INJ 25 MG in SODIUM CHLORIDE 0.9% 50 ML IV ONE (09:30)
[2019-12-07 09:38] LABS: ALBUMIN 3.4 g/dL (3.2-5.5); ALBUMIN/GLOBULIN RATIO 1.1 (1.0-2.2); BILIRUBIN,TOTAL 0.5 mg/dL (0.2-1.0); CALCIUM 8.7 mg/dL (8.5-10.3); CREATININE 0.5 mg/dL (0.4-1.0); TOTAL PROTEIN 6.5 g/dL (6.7-8.2)
--- NOTE | 2019-12-07 09:51 | PROVIDER PROGRESS NOTE ---
Subjective - Prog Note Date Prog Note Date: 12/07/19 Prog Note Time: 09:49 - Subjective Subjective: Eating, a bit more comfortable. Labs: No rupture of membranes, UA neg. CMP signif for low sodium and potassium CBC signif for continued anemia, hgb 10.0, normal indices. A/P Continue plan to allow medicated sleep, add phenergan to reduce anxiety. Give 1 liter NS with 40mEq KCl Anemia labs ordered, treat accordingly when results available. Objective - Vital Signs/Intake & Output Vital Signs: Vital Signs x48h Temp Pulse Resp BP Pulse Ox 12/07/19 08:29 98.4 F 94 20 111/79 100 - Lab Results Fish Bones: 12/07/19 08:15 12/07/19 08:15 Other Labs: Lab Results x24hrs 12/07/19 12/07/19 12/07/19 Range/Units 09:00 08:47 08:15 WBC (4.8-10.8) x10^3/uL RBC (4.20-5.40) 10^6/uL Hgb (12.0-16.0) g/dL Hct (37.0-47.0) % MCV (81.0-99.0) fL MCH (27.0-31.0) pg MCHC (32.0-36.0) g/dL RDW (12.0-15.0) % Plt Count (130-450) 10^3/uL MPV (7.9-10.8) fL Sodium 133 L (135-145) mmol/L Potassium 3.5 (3.5-5.0) mmol/L Chloride 101 (101-111) mmol/L Carbon Dioxide 21 (21-32) mmol/L Anion Gap 11.0 (6-13) BUN 12 (6-20) mg/dL Creatinine 0.5 (0.4-1.0) mg/dL Estimated GFR (MDRD) 154 (>89) Glucose 89 (70-100) mg/dL Calcium 8.7 (8.5-10.3) mg/dL Total Bilirubin 0.5 (0.2-1.0) mg/dL AST 26 (10-42) IU/L ALT 21 (10-60) IU/L Alkaline Phosphatase 165 H (42-121) IU/L Total Protein 6.5 L (6.7-8.2) g/dL Albumin 3.4 (3.2-5.5) g/dL Globulin 3.1 (2.1-4.2) g/dL Albumin/Globulin Ratio 1.1 (1.0-2.2) Urine Color YELLOW Urine Clarity CLEAR (CLEAR) Urine pH 7.0 (5.0-7.5) PH Ur Specific [place] <=1.005 (1.002-1.030) Urine Protein NEGATIVE (NEGATIVE) mg/dL Urine Glucose (UA) NEGATIVE (NEGATIVE) mg/dL Urine Ketones NEGATIVE (NEGATIVE) mg/dL Urine Occult Blood NEGATIVE (NEGATIVE) Urine Nitrite NEGATIVE (NEGATIVE) Urine Bilirubin NEGATIVE (NEGATIVE) Urine Urobilinogen 0.2 (NORMAL) (NORMAL) E.U./dL Ur Leukocyte Esterase NEGATIVE (NEGATIVE) Urine RBC 0-5 (0-5) /HPF Urine WBC 0-3 (0-5) /HPF Ur Squamous Epith Cells FEW Squamous (<= Few) Urine Crystals 0-2 Calcium Oxalate /LPF Urine Bacteria Few (None Seen) /HPF Urine Culture Comments NOT INDICATED Membranes Rupture NEGATIVE (NEGATIVE) 12/07/19 Range/Units 08:15 WBC 11.8 H (4.8-10.8) x10^3/uL RBC 3.03 L (4.20-5.40) 10^6/uL Hgb 10.0 L (12.0-16.0) g/dL Hct 29.2 L (37.0-47.0) % MCV 96.4 (81.0-99.0) fL MCH 33.0 H (27.0-31.0) pg MCHC 34.2 (32.0-36.0) g/dL RDW 14.2 (12.0-15.0) % Plt Count 256 (130-450) 10^3/uL MPV 8.9 (7.9-10.8) fL Sodium (135-145) mmol/L Potassium (3.5-5.0) mmol/L Chloride (101-111) mmol/L Carbon Dioxide (21-32) mmol/L Anion Gap (6-13) BUN (6-20) mg/dL Creatinine (0.4-1.0) mg/dL Estimated GFR (MDRD) (>89) Glucose (70-100) mg/dL Calcium (8.5-10.3) mg/dL Total Bilirubin (0.2-1.0) mg/dL AST (10-42) IU/L ALT (10-60) IU/L Alkaline Phosphatase (42-121) IU/L Total Protein (6.7-8.2) g/dL Albumin (3.2-5.5) g/dL Globulin (2.1-4.2) g/dL Albumin/Globulin Ratio (1.0-2.2) Urine Color Urine Clarity (CLEAR) Urine pH (5.0-7.5) PH Ur Specific [place] (1.002-1.030) Urine Protein (NEGATIVE) mg/dL Urine Glucose (UA) (NEGATIVE) mg/dL Urine Ketones (NEGATIVE) mg/dL Urine Occult Blood (NEGATIVE) Urine Nitrite (NEGATIVE) Urine Bilirubin (NEGATIVE) Urine Urobilinogen (NORMAL) E.U./dL Ur Leukocyte Esterase (NEGATIVE) Urine RBC (0-5) /HPF Urine WBC (0-5) /HPF Ur Squamous Epith Cells (<= Few) Urine Crystals /LPF Urine Bacteria (None Seen) /HPF Urine Culture Comments Membranes Rupture (NEGATIVE)
[2019-12-07] MEDS ORDERED: ACETAMINOPHEN 500 MG TABLET PO SCH (10:00)
[2019-12-07] MEDS ORDERED: NS W/40 MEQ KCL 1,000 ML IV SCH (10:00)
[2019-12-07 10:52] LABS: % IRON SATURATION 11 % (20-50); IRON 56 ug/dL (28-170); TOTAL IRON BINDING CAPACITY 504 ug/dL (250-450); TRANSFERRIN 360 mg/dL (192-382)
[2019-12-07] MEDS ORDERED: IRON DEXTRAN 1,000 MG in SODIUM CHLORIDE 0.9% 250 ML IV ONE (12:00)
--- NOTE | 2019-12-08 07:38 | PROVIDER PROGRESS NOTE ---
Subjective - Prog Note Date Prog Note Date: 12/07/19 Prog Note Time: 16:40 - Subjective Subjective: Pt had good sleep, feeling much better. No contractions VSS afeb S/P 1liter NS w KCl and 1000mg IV iron Plan DC home. F/u as scheduled. Objective - Lab Results Fish Bones: 12/07/19 08:15 12/07/19 08:15 Other Labs: Lab Results x24hrs 12/07/19 12/07/19 12/07/19 Range/Units 09:48 09:00 08:47 WBC (4.8-10.8) x10^3/uL RBC (4.20-5.40) 10^6/uL Hgb (12.0-16.0) g/dL Hct (37.0-47.0) % MCV (81.0-99.0) fL MCH (27.0-31.0) pg MCHC (32.0-36.0) g/dL RDW (12.0-15.0) % Plt Count (130-450) 10^3/uL MPV (7.9-10.8) fL Sodium (135-145) mmol/L Potassium (3.5-5.0) mmol/L Chloride (101-111) mmol/L Carbon Dioxide (21-32) mmol/L Anion Gap (6-13) BUN (6-20) mg/dL Creatinine (0.4-1.0) mg/dL Estimated GFR (MDRD) (>89) Glucose (70-100) mg/dL Calcium (8.5-10.3) mg/dL Iron (28-170) ug/dL TIBC (250-450) ug/dL % Saturation (20-50) % Transferrin (192-382) mg/dL Total Bilirubin (0.2-1.0) mg/dL AST (10-42) IU/L ALT (10-60) IU/L Alkaline Phosphatase (42-121) IU/L Total Protein (6.7-8.2) g/dL Albumin (3.2-5.5) g/dL Globulin (2.1-4.2) g/dL Albumin/Globulin Ratio (1.0-2.2) Vitamin B12 (180-914) pg/mL Folate (5.90 - >24.8) ng/mL Urine Color YELLOW Urine Clarity CLEAR (CLEAR) Urine pH 7.0 (5.0-7.5) PH Ur Specific [place] <=1.005 (1.002-1.030) Urine Protein NEGATIVE (NEGATIVE) mg/dL Urine Glucose (UA) NEGATIVE (NEGATIVE) mg/dL Urine Ketones NEGATIVE (NEGATIVE) mg/dL Urine Occult Blood NEGATIVE (NEGATIVE) Urine Nitrite NEGATIVE (NEGATIVE) Urine Bilirubin NEGATIVE (NEGATIVE) Urine Urobilinogen 0.2 (NORMAL) (NORMAL) E.U./dL Ur Leukocyte Esterase NEGATIVE (NEGATIVE) Urine RBC 0-5 (0-5) /HPF Urine WBC 0-3 (0-5) /HPF Ur Squamous Epith Cells FEW Squamous (<= Few) Urine Crystals 0-2 Calcium Oxalate /LPF Urine Bacteria Few (None Seen) /HPF Urine Culture Comments NOT INDICATED Membranes Rupture NEGATIVE (NEGATIVE) Blood Type O POSITIVE Antibody Screen NEGATIVE 12/07/19 12/07/19 12/07/19 Range/Units 08:15 08:15 08:15 WBC (4.8-10.8) x10^3/uL RBC (4.20-5.40) 10^6/uL Hgb (12.0-16.0) g/dL Hct (37.0-47.0) % MCV (81.0-99.0) fL MCH (27.0-31.0) pg MCHC (32.0-36.0) g/dL RDW (12.0-15.0) % Plt Count (130-450) 10^3/uL MPV (7.9-10.8) fL Sodium 133 L (135-145) mmol/L Potassium 3.5 (3.5-5.0) mmol/L Chloride 101 (101-111) mmol/L Carbon Dioxide 21 (21-32) mmol/L Anion Gap 11.0 (6-13) BUN 12 (6-20) mg/dL Creatinine 0.5 (0.4-1.0) mg/dL Estimated GFR (MDRD) 154 (>89) Glucose 89 (70-100) mg/dL Calcium 8.7 (8.5-10.3) mg/dL Iron 56 (28-170) ug/dL TIBC 504 H (250-450) ug/dL % Saturation 11 L (20-50) % Transferrin 360 (192-382) mg/dL Total Bilirubin 0.5 (0.2-1.0) mg/dL AST 26 (10-42) IU/L ALT 21 (10-60) IU/L Alkaline Phosphatase 165 H (42-121) IU/L Total Protein 6.5 L (6.7-8.2) g/dL Albumin 3.4 (3.2-5.5) g/dL Globulin 3.1 (2.1-4.2) g/dL Albumin/Globulin Ratio 1.1 (1.0-2.2) Vitamin B12 338 (180-914) pg/mL Folate 43.00 (5.90 - >24.8) ng/mL Urine Color Urine Clarity (CLEAR) Urine pH (5.0-7.5) PH Ur Specific [place] (1.002-1.030) Urine Protein (NEGATIVE) mg/dL Urine Glucose (UA) (NEGATIVE) mg/dL Urine Ketones (NEGATIVE) mg/dL Urine Occult Blood (NEGATIVE) Urine Nitrite (NEGATIVE) Urine Bilirubin (NEGATIVE) Urine Urobilinogen (NORMAL) E.U./dL Ur Leukocyte Esterase (NEGATIVE) Urine RBC (0-5) /HPF Urine WBC (0-5) /HPF Ur Squamous Epith Cells (<= Few) Urine Crystals /LPF Urine Bacteria (None Seen) /HPF Urine Culture Comments Membranes Rupture (NEGATIVE) Blood Type Antibody Screen 12/07/19 Range/Units 08:15 WBC 11.8 H (4.8-10.8) x10^3/uL RBC 3.03 L (4.20-5.40) 10^6/uL Hgb 10.0 L (12.0-16.0) g/dL Hct 29.2 L (37.0-47.0) % MCV 96.4 (81.0-99.0) fL MCH 33.0 H (27.0-31.0) pg MCHC 34.2 (32.0-36.0) g/dL RDW 14.2 (12.0-15.0) % Plt Count 256 (130-450) 10^3/uL MPV 8.9 (7.9-10.8) fL Sodium (135-145) mmol/L Potassium (3.5-5.0) mmol/L Chloride (101-111) mmol/L Carbon Dioxide (21-32) mmol/L Anion Gap (6-13) BUN (6-20) mg/dL Creatinine (0.4-1.0) mg/dL Estimated GFR (MDRD) (>89) Glucose (70-100) mg/dL Calcium (8.5-10.3) mg/dL Iron (28-170) ug/dL TIBC (250-450) ug/dL % Saturation (20-50) % Transferrin (192-382) mg/dL Total Bilirubin (0.2-1.0) mg/dL AST (10-42) IU/L ALT (10-60) IU/L Alkaline Phosphatase (42-121) IU/L Total Protein (6.7-8.2) g/dL Albumin (3.2-5.5) g/dL Globulin (2.1-4.2) g/dL Albumin/Globulin Ratio (1.0-2.2) Vitamin B12 (180-914) pg/mL Folate (5.90 - >24.8) ng/mL Urine Color Urine Clarity (CLEAR) Urine pH (5.0-7.5) PH Ur Specific [place] (1.002-1.030) Urine Protein (NEGATIVE) mg/dL Urine Glucose (UA) (NEGATIVE) mg/dL Urine Ketones (NEGATIVE) mg/dL Urine Occult Blood (NEGATIVE) Urine Nitrite (NEGATIVE) Urine Bilirubin (NEGATIVE) Urine Urobilinogen (NORMAL) E.U./dL Ur Leukocyte Esterase (NEGATIVE) Urine RBC (0-5) /HPF Urine WBC (0-5) /HPF Ur Squamous Epith Cells (<= Few) Urine Crystals /LPF Urine Bacteria (None Seen) /HPF Urine Culture Comments Membranes Rupture (NEGATIVE) Blood Type Antibody Screen
== END 2019-12-07 17:00 | disposition home or self-care (01) ==
LOC: WFO 08:20 → FBP 08:24 → WFO 17:00
PROVIDERS: ATTEND Obstetrics & Gynecology
DX: O99.89 Other specified diseases and conditions complicating pregnancy, childbirth and the puerperium (principal); N89.8 Other specified noninflammatory disorders of vagina; O99.013 Anemia complicating pregnancy, third trimester; D50.9 Iron deficiency anemia, unspecified; R06.02 Shortness of breath; G47.00 Insomnia, unspecified; Z3A.37 37 weeks gestation of pregnancy
CPT/HCPCS: 36415; 80053; 81001; 82607; 82746; 83540; 84112; 84466; 85027; 86850; 86900; 86901; 96374; 96375; 99213; A9270; J1750; J7040; 87086

== ENCOUNTER 2019-12-12 18:59 | Outpatient (CLI) | payer MEDICAID ==
--- NOTE | 2019-12-12 20:34 | Ultrasound Report ---
PROCEDURE: OB F/U or Repeat INDICATIONS: MEASURING SIZE LESS THAN DATE OUTSIDE/PRIOR DATING DATA: Last menstrual period (LMP): 03/21/2019. LMP-based estimated date of delivery (LYNNE): 12/26/2019. First dating scan (date and location): 05/14/2019. Estimated date of delivery (LYNNE) from first dating scan: 12/26/2019. TECHNIQUE: Real-time scanning was performed of the fetus, with image documentation and biometric measurements. Endovaginal scanning: Not performed COMPARISON: 08/06/2019. FINDINGS: General: A single living intrauterine gestation is present. Presentation: Vertex Placenta: Placental position is anterior, without previa. Amniotic fluid index: 12 cm, normal for gestational age. Largest pocket measures 4.2 cm. heart rate: 144 beats per minute. Maternal cervical canal: Closed and grossly normal in length.. biometrics: Biparietal diameter: 8.9 cm, 36 weeks 0 day Head circumference: 32.8 cm, 37 weeks, 1 day Abdominal circumference: 33.7 cm, 37 weeks, 4 days Femur length: 6.8 cm, 35 weeks, 1 day Estimated gestational age from initial scan: 38 weeks 0 day. Composite gestational age from present scan: 36 week 3 days. Estimated weight and percentile: 3023 g, 30% Measurement variability in biometric dating: +/- 10 days from 12-20 weeks gestation, +/- 2 weeks from 20-30 weeks gestation, +/- 3 weeks at 30 weeks gestation or more. Other: chest, stomach, bilateral kidneys and urinary bladder are visualized and are within norm al limits. IMPRESSION: 1. Single live intrauterine with fetus in vertex presentation. heart rate is 144 bpm. Normal amount of amniotic fluid. 2. Estimated gestational age based on current study is 36 weeks, 3 days. Estimated gestational age ba sed on the initial study is 38 weeks, 0 day. 3. Estimated weight is 3023 g which is at 30th percentile. Reviewed by: Gabriel Lorenzana MD on 12/12/2019 8:33 PM PDT Approved by: Gabriel Lorenzana MD on 12/12/2019 8:33 PM PDT Station ID: [id number]
== END 2019-12-12 19:00 | disposition home or self-care (01) ==
LOC: DI 18:59
PROVIDERS: ATTEND Obstetrics & Gynecology
DX: O36.5930 Maternal care for other known or suspected poor fetal growth, third trimester, not applicable or unspecified (principal); Z3A.36 36 weeks gestation of pregnancy
CPT/HCPCS: 76816

== ENCOUNTER 2019-12-19 08:09 | Inpatient (IN) | payer MEDICAID ==
[2019-12-19] MEDS ORDERED: LIDOCAINE-MPF 1% 30 ML VIAL ID PRN (09:30)
[2019-12-19] MEDS ORDERED: miSOPROStoL 200 MCG TABLET BC PRN (09:30)
[2019-12-19] MEDS ORDERED: fentaNYL 100 MCG/2 ML VIAL IVP PRN (09:30)
[2019-12-19] MEDS ORDERED: METHYLERGONOVINE 0.2 MG/ML VIAL IM PRN (09:30)
[2019-12-19] MEDS ORDERED: OXYTOCIN/SODIUM CHLORIDE 500 ML IV PRN (09:30)
[2019-12-19] MEDS ORDERED: SODIUM CHLORIDE FLUSH 0.9% 10 ML SYRINGE IVP PRN (09:30)
[2019-12-19] MEDS ORDERED: ONDANSETRON 4 MG/2 ML VIAL IVP PRN ×2 (09:30→12:24)
[2019-12-19] MEDS ORDERED: TRANEXAMIC ACID 1,000 MG in SODIUM CHLORIDE 0.9% 100ML 100 ML IV PRN (09:30)
[2019-12-19] MEDS ORDERED: CARBOPROST TROMETHAMINE 250 MCG/ML AMP IM PRN (09:30)
[2019-12-19] MEDS ORDERED: OXYTOCIN 10 UNIT/ML VIAL IM PRN (09:30)
[2019-12-19] MEDS ORDERED: OXYTOCIN/SODIUM CHLORIDE 500 ML IV SCH (10:00)
[2019-12-19] MEDS: CALCIUM CARBONATE CHEW 500 MG TABLET PO SCH ×2 (10:00→15:54)
[2019-12-19] MEDS: LACTATED RINGERS 1,000 ML IV SCH ×2 (10:01→14:28)
[2019-12-19 10:21] LABS: BASOPHILS # (AUTO) 0.1 10^3/uL (0.0-0.1); BASOPHILS % (AUTO) 0.4 %; EOSINOPHILS % (AUTO) 0.3 %; HGB - HEMOGLOBIN 10.3 g/dL (12.0-16.0); LYMPHOCYTES # (AUTO) 1.8 10^3/uL (1.5-3.5); LYMPHOCYTES % (AUTO) 15.5 %; MEAN CORPUSCULAR HEMOGLOBIN 33.8 pg (27.0-31.0); MEAN CORPUSCULAR HGB CONC 34.7 g/dL (32.0-36.0); MEAN CORPUSCULAR VOLUME 97.4 fL (81.0-99.0); MONOCYTES # (AUTO) 0.9 10^3/uL (0.0-1.0); MONOCYTES % (AUTO) 7.1 %; NEUTROPHILS # (AUTO) 8.7 10^3/uL (1.5-6.6); NEUTROPHILS % (AUTO) 73.6 %; PLT - PLATELET COUNT 266 10^3/uL (130-450); RED BLOOD COUNT 3.05 10^6/uL (4.20-5.40); WHITE BLOOD COUNT 11.9 x10^3/uL (4.8-10.8)
--- NOTE | 2019-12-19 11:18 | ANESTHESIA ---
Pre-Anesthesia VS, & Labs - Diagnosis - Procedure labor epidural Vital Signs: Temp Pulse Resp BP Pulse Ox 37.0 C 12/19/19 08:24 Height 5 ft 1 in Weight (kg) 54.885 kg Body Mass Index 23.4 - NPO Other - Is Patient ?: Yes - Lab Results Current Lab Results: Laboratory Tests 12/19/19 08:35: WBC 11.9 H, RBC 3.05 L, Hgb 10.3 L, Hct 29.7 L, MCV 97.4, MCH 33.8 H, MCHC 34.7, RDW 15.0, Plt Count 266, MPV 9.0, Neut # (Auto) 8.7 H, Lymph # (Auto) 1.8, [place] # (Auto) 0.9, Eos # (Auto) 0.0, Baso # (Auto) 0.1, Absolute Nucleated RBC 0.00, Nucleated RBC % 0.0 Lab results reviewed: Yes Fish Bones: 12/19/19 08:35 Home Medications and Allergies Active Medications Calcium Carbonate/Glycine (Tums) 500 mg PO BID [facility] Last Admin: 12/19/19 10:00 Dose: 500 mg Documented by: Carboprost Tromethamine (Hemabate) 250 mcg IM Q15M PRN PRN Reason: Step 4: Hemorrhage protocol Stop: 12/21/19 09:32 Fentanyl (Fentanyl) 50 mcg IVP Q1H PRN PRN Reason: PAIN Lactated Ringer's (Lr) 1,000 mls @ 100 mls/hr IV .Q10H [facility] Last Admin: 12/19/19 10:01 Dose: 100 mls/hr Documented by: Oxytocin/Sodium Chloride (Pitocin/Sodium Chloride) 500 mls @ 999 mls/hr IV PRN PRN; Protocol PRN Reason: POST- HEMORR PREVENTION Stop: 12/21/19 09:32 Tranexamic Acid 1,000 mg/ (Sodium Chloride) 110 mls @ 660 mls/hr IV ONCE PRN PRN Reason: EBL >1200mL and within 3hr Stop: 12/21/19 09:32 Oxytocin/Sodium Chloride (Pitocin/Sodium Chloride) 500 mls @ 1 mls/hr IV TITR SANTINO; Protocol Last Admin: 12/19/19 10:03 Dose: 1 milliunit/min, 1 mls/hr Documented by: Lidocaine HCl (Xylocaine-Mpf 1% Vial) 30 ml ID ONCE PRN PRN Reason: PERINEAL REPAIR Stop: 12/21/19 09:32 Methylergonovine Maleate (Methergine Inj) 0.2 mg IM ONCE PRN PRN Reason: Step 2: Hemorrhage protocol Stop: 12/21/19 09:32 Misoprostol (Cytotec) 800 mcg BC ONCE PRN PRN Reason: Step 3: Hemorrhage protocol Stop: 12/21/19 09:32 Nicotine (Nicoderm) 1 patch TOP DAILY SANTINO Ondansetron HCl (Zofran Inj) 4 mg IVP Q4HR PRN PRN Reason: Nausea / Vomiting Oxytocin (Pitocin) 10 unit IM ONCE PRN PRN Reason: Step one: If no IV access Stop: 12/21/19 09:32 Sodium Chloride (Normal Saline Flush 0.9%) 10 ml IVP 0100,0900,1700 SANTINO Sodium Chloride (Normal Saline Flush 0.9%) 10 ml IVP PRN PRN PRN Reason: NEEDED PER PROVIDER ORDERS Pnv No.95/Ferrous Fum/Folic AC [ Caplet] 1 tab PO DAILY 08/24/19 Allergies/Adverse Reactions: Allergies Allergy/AdvReac Type Severity Reaction Status Date / Time No Known Drug Allergies Allergy Verified 12/07/19 08:15 Anes History & Medical History - Anesthetic History Anesthesia Complications: reports: Post-Operative Nausea/Vomiting Family history of Anesthesia Complications: Denies Family history of Malignant Hyperthermia: Denies - Medical History Cardiovascular: reports: None Pulmonary: reports: None Gastrointestinal: reports: None Urinary: reports: None Neuro: reports: None Musculoskeletal: reports: None Endocrine/Autoimmune: reports: None Skin: reports: None Smoking Status: Current every day smoker - Surgical History General: Appendectomy - Obstetrical History : 2 Complications: positive: None Exam General: Alert, Oriented x3, Cooperative Dental: WNL Mouth Openin Fingerbreadth Neck Mobility: Normal Mallampati classification: I Respiratory: Lungs clear, Normal breath sounds, No respiratory distress, No accessory muscle use Cardiovascular: Regular rate, Normal S1, Normal S2, No murmurs Plan Anesthesia Type: Epidural Regional Block: Per Surgeon's request for Post Op pain control Consent for Procedure(s) Verified and Reviewed: Yes Code Status: Attempt Resuscitation ASA classification: 2-Mild systemic disease Is this case an emergency?: No
[2019-12-19] MEDS ORDERED: ROPIVACAINE 0.2% 200 MG/100 ML BAG EP ONE (11:48)
[2019-12-19] MEDS ORDERED: fentaNYL 100 MCG/2 ML VIAL ONE ×2 (11:48→17:56)
[2019-12-19] MEDS ORDERED: BUPIVACAINE 0.25% PF 10 ML VIAL ONE ×2 (11:48→17:56)
--- NOTE | 2019-12-19 11:57 | PROVIDER PROGRESS NOTE ---
Labor Progress Note - Uterine Monitoring Uterine Monitoring Mode: positive: External toco Contraction Frequency (min/apart): 5 Contraction Intensity: positive: Moderate Uterine Resting Tone: positive: Soft - Monitoring Heart Rate Baseline: 135 Heart Rate Variability: positive: Moderate (6-25 bmp) Accelerations: positive: Absent Decelerations: positive: None Strip Review: positive: Category I - Labor Progress Note Labor Progress Note/Additional Text: SROM 10:11
--- NOTE | 2019-12-19 12:00 | PREOP HISTORY & PHYSICAL ---
DATE OF SERVICE: 12/19/2019 Physician: Bean Leon MD IDENTIFICATION: The patient is a 24-year-old, G3, P1 female who is currently 40 weeks. She presents this morning for an induction of labor. She has an EDC of December 25. Her OB course has been unremarkable. She started her OB care at 11 weeks EGA. Laboratories show her to be O positive, rubella immune. She is GBS negative. Her 50 gram Glucola was elevated at 141. I have not seen in the chart a 3-hour GTT, however. PAST MEDICAL HISTORY: Negative. She is currently a smoker. PAST SURGICAL HISTORY: Laparoscopic appendectomy. ALLERGIES: NONE KNOWN. CURRENT MEDICATIONS: Iron and vitamins. HABITS: The patient is a former smoker. PHYSICAL EXAMINATION GENERAL: Well-developed, well-nourished, white female, in no acute distress. VITAL SIGNS: Noted to be normal. HEENT: Pupils equal, round. Extraocular muscles are intact. Thyroid is not palpably enlarged. HEART: Regular rate and rhythm without murmurs. LUNGS: Lung louis are clear without rales or wheezes. BACK: No spinal or CVA tenderness noted. ABDOMEN: Uterus is gravid. It is nontender. PELVIC: Cervical examination: She is 2-3 cm. She is 75% effaced. She is -2 vertex presentation. She is intact. PLAN: We will start patient on Pitocin. We will administer epidural as indicated. We will rupture membranes when appropriate. TD: 12/19/2019 11:50 MTDD
[2019-12-19] MEDS ORDERED: ePHEDrine 50 MG/ML VIAL IVP PRN (12:24)
[2019-12-19] MEDS ORDERED: METOCLOPRAMIDE 10 MG/2 ML VIAL IVP PRN (12:24)
[2019-12-19] MEDS ORDERED: NALBUPHINE 10 MG/ML AMP IVP PRN (12:24)
[2019-12-19] MEDS ORDERED: NALOXONE 0.4 MG/ML VIAL IVP PRN (12:24)
[2019-12-19] MEDS ORDERED: diphenhydrAMINE INJ 50 MG/ML VIAL IVP PRN (12:24)
[2019-12-19] MEDS ORDERED: LACTATED RINGERS 500 ML IV ONE (12:24)
[2019-12-19] MEDS ORDERED: ROPIVACAINE 0.2% 200 MG/100 ML BAG EP PRN (12:24)
[2019-12-19] MEDS ORDERED: SODIUM CHLORIDE FLUSH 0.9% 10 ML SYRINGE IVP SCH (17:00)
--- NOTE | 2019-12-19 17:11 | PROVIDER PROGRESS NOTE ---
Labor Progress Note - Uterine Monitoring Uterine Monitoring Mode: positive: External toco Contraction Frequency (min/apart): 2.5 Contraction Intensity: positive: Moderate to strong Uterine Resting Tone: positive: Soft - Monitoring Heart Rate Baseline: 135 Heart Rate Variability: positive: Minimal (0-5 bpm) Accelerations: positive: Absent Decelerations: positive: None Strip Review: positive: Category I - Vaginal Exam Dilation (in cm): 6 Effacement (%): 100 Station: 0 Cervical Position: Anterior - Labor Progress Note Labor Progress Note/Additional Text: Pt is starting to progress. strip not much variability but no Late decelerations Stop pit. Hx of hemorrhagia Typ and cross 2 units
--- NOTE | 2019-12-19 21:49 | PROVIDER PROGRESS NOTE ---
Labor Progress Note - Uterine Monitoring Uterine Monitoring Mode: positive: External toco Contraction Frequency (min/apart): 3 Contraction Intensity: positive: Strong - Monitoring Monitor Mode: positive: External ultrasound Heart Rate Baseline: 135 Heart Rate Variability: positive: Moderate (6-25 bmp) Accelerations: positive: Present, 15x15 Decelerations: positive: None Strip Review: positive: Category I - Vaginal Exam Dilation (in cm): 9 anterior lip Station: 1 Cervical Position: Anterior - Labor Progress Note Labor Progress Note/Additional Text: tried a few trial pushes. head comes down but not able to reduce the CX.
[2019-12-19] MEDS ORDERED: oxyCODONE 5 MG TABLET PO PRN (22:57)
[2019-12-19] MEDS ORDERED: WITCH HAZEL/GLYCERIN 1 PAD TOP PRN (22:57)
[2019-12-19] MEDS ORDERED: HYDROCORTISONE 1% CREAM 28 GM TUBE PR PRN (22:57)
[2019-12-19] MEDS ORDERED: diphenhydrAMINE 25 MG CAPSULE PO PRN (22:57)
[2019-12-19] MEDS ORDERED: LACTATED RINGERS 1,000 ML IV SCH (23:00)
--- NOTE | 2019-12-19 23:06 | DELIVERY NOTE ---
Delivery Note - Labor Labor: positive: Induced by oxytocin - Delivery Method Delivery Method: positive: Spontaneous vaginal delivery - Presentation Presentation: positive: Vertex, TIFF - right occiput anterior - Nuchal Cord Nuchal Cord: positive: None (right bandolear) - Anesthetic Anesthetic Type: - Amniotic Fluid Description Amniotic Fluid Description: positive: Light meconium - Episiotomy Type Episiotomy Type: positive: None - Laceration Laceration: positive: 1st degree, Perineal, Periurethral - Suture Suture Type: positive: Vicryl Suture Size: positive: 3-0 - Delivery Outcome Delivery Outcome: positive: Livebirth - [place]: positive: Placed in direct skin contact with mother, Suctioned sex: positive: Male (12/11) - Cord Cord: positive: 3 vessels - Estimated Blood Loss Estimated Blood Loss (in cc): 150 - Post Delivery Events Post Delivery Events: positive: No post delivery events - Delivery Comments (Free Text/Narrative) Delivery Comments (Free Text/Narrative): Patient presented to labor and delivery at 8:00 this morning for induction of labor. Admission her cervix was 3cm. Patient Pitocin was initiated and an epidural was placed at 4 cm. She spontaneously ruptured her membranes at 1010. Thin meconium was noted at that time. Her strip was intermittent with flatness as well as reactivity. There is no late decelerations throughout. She reached complete at 2210 and following excellent pushing delivered at 2227 following a 17-minute second stage. The was right occiput anterior there was a right shoulder bandolier. The placenta delivered at 2230 was inspected noted be intact. Pitosin was utilized aggressively following delivery of the i nfant because of a history of a hemorrhage. At delivery she suffered a first-degree laceration which was repaired with 3-0 Vicryl. There is also a left periurethral laceration also repaired with 3-0 Vicryl.
[2019-12-19] MEDS: IBUPROFEN 600 MG TABLET PO SCH (23:39)
[2019-12-19] MEDS: ACETAMINOPHEN 325 MG TABLET PO PRN (23:40)
[2019-12-20] MEDS: ACETAMINOPHEN 325 MG TABLET PO PRN ×3 (04:45→16:21)
[2019-12-20 05:20] LABS: BASOPHILS # (AUTO) 0.1 10^3/uL (0.0-0.1); BASOPHILS % (AUTO) 0.4 %; EOSINOPHILS # (AUTO) 0.1 10^3/uL (0.0-0.7); EOSINOPHILS % (AUTO) 0.3 %; LYMPHOCYTES # (AUTO) 1.7 10^3/uL (1.5-3.5); LYMPHOCYTES % (AUTO) 8.9 %; MEAN CORPUSCULAR HEMOGLOBIN 34.4 pg (27.0-31.0); MEAN CORPUSCULAR HGB CONC 35.2 g/dL (32.0-36.0); MEAN CORPUSCULAR VOLUME 97.7 fL (81.0-99.0); MEAN PLATELET VOLUME 8.5 fL (7.9-10.8); MONOCYTES # (AUTO) 1.3 10^3/uL (0.0-1.0); MONOCYTES % (AUTO) 6.8 %; NEUTROPHILS # (AUTO) 15.7 10^3/uL (1.5-6.6); NEUTROPHILS % (AUTO) 82.8 %; PLT - PLATELET COUNT 184 10^3/uL (130-450); RED BLOOD COUNT 2.62 10^6/uL (4.20-5.40); RED CELL DISTRIBUTION WIDTH 15.2 % (12.0-15.0)
[2019-12-20] MEDS: IBUPROFEN 600 MG TABLET PO SCH ×3 (05:58→18:24)
[2019-12-20] MEDS ORDERED: SIMETHICONE CHEW 80 MG TABLET PO SCH (06:00)
[2019-12-20] MEDS ORDERED: FERRIC GLUCONATE 125 MG in SODIUM CHLORIDE 0.9% 100ML 100 ML IV ONE (08:30)
--- NOTE | 2019-12-20 08:33 | DISCHARGE SUMMARY ---
Physician: Rossy Britton MD DATE OF ADMISSION: 12/19/2019 DATE OF DISCHARGE: 12/21/2019 ADMISSION DIAGNOSES 1. Intrauterine at 40 weeks. 2. Induction of labor. DISCHARGE DIAGNOSIS: Status post vaginal delivery. OPERATIONS AND PROCEDURES: Vaginal delivery on 12/19/2019. This was uncomplicated. HOSPITAL COURSE: The patient was admitted and induced with Pitocin. Her delivery was uncomplicated. Her course was complicated by acute blood loss anemia, superimposed on chronic anemia. She got a dose of IV iron for this. She is also a current smoker. She is doing well on a nicotine patch currently and would like to go home with this. Discussed use of patch and praised lack of smoking. The patient with a history of depression, not needing medications. She felt poorly for a few weeks after her last delivery and declines any further treatment at this time. We will follow her up in 2 weeks to do a mood check. DISCHARGE EXAMINATION GENERAL: She was afebrile with normal vital signs. Alert and smiling, in no apparent distress. ABDOMEN: Soft and nontender. Fundus firm, nontender, and at the umbilicus. EXTREMITIES: No lower extremity clubbing, cyanosis or edema. She is Rh positive and rubella immune, and is status post her TDaP vaccine. DISPOSITION: Home. CONDITION: Good. FOLLOWUP: In [address] Bean Leon. TD: 12/20/2019 08:22 SHIVAM
[2019-12-20] MEDS: NICOTINE 14 MG PATCH TOP SCH (08:59)
[2019-12-20] MEDS: DOCUSATE SODIUM 100 MG CAPSULE PO SCH ×2 (08:59→21:01)
--- NOTE | 2019-12-20 12:09 | PROVIDER PROGRESS NOTE ---
Objective - Vital Signs/Intake & Output Vital Signs: Vital Signs x48h Temp Pulse Resp BP Pulse Ox 12/20/19 11:53 98.2 F 90 19 122/65 96 12/20/19 08:24 98.1 F 72 18 120/70 98 12/20/19 05:50 97.7 F 86 16 110/66 97 Intake & Output: Intake & Output 12/17/19 12/18/19 12/19/19 12/20/19 23:59 23:59 23:59 23:59 Intake Total 1407.500 942.5 Output Total 955 925 Balance 452.500 17.5 - Lab Results Fish Bones: 12/20/19 05:14 Other Labs: Lab Results x24hrs 12/20/19 12/19/19 Range/Units 05:14 08:35 WBC 19.0 H (4.8-10.8) x10^3/uL RBC 2.62 L (4.20-5.40) 10^6/uL Hgb 9.0 L (12.0-16.0) g/dL Hct 25.6 L (37.0-47.0) % MCV 97.7 (81.0-99.0) fL MCH 34.4 H (27.0-31.0) pg MCHC 35.2 (32.0-36.0) g/dL RDW 15.2 H (12.0-15.0) % Plt Count 184 (130-450) 10^3/uL MPV 8.5 (7.9-10.8) fL Neut # (Auto) 15.7 H (1.5-6.6) 10^3/uL Lymph # (Auto) 1.7 (1.5-3.5) 10^3/uL [place] # (Auto) 1.3 H (0.0-1.0) 10^3/uL Eos # (Auto) 0.1 (0.0-0.7) 10^3/uL Baso # (Auto) 0.1 (0.0-0.1) 10^3/uL Absolute Nucleated RBC 0.00 x10^3/uL Nucleated RBC % 0.0 /100WBC Blood Type O POSITIVE Antibody Screen NEGATIVE Crossmatch IS Only See Detail Assessment/Plan - Problem List (1) Vaginal delivery Impression: Eat, ambulate, urinate well. No BM. VB like a period. Not . Not light headed. No SUTTON or SOB. AVSS Alert smiling cuddling baby, NAD Abd soft, nt/nd Fundus firm, NT, 1cm below U No LE c/c/e Hct 25 A/P: 24yo P2 PPD#1/2 s/p at term. Doing well.. --Continue nicotine patch, praised for lack of smoking, she is going to try to quit again at home, Nicotine patch rx will be given --s/p Tdap, RI --Asymptomatic acute blood loss anemia superimposed on chronic anemia NOS. Hct 25. Will give a dose if IV Fe.
[2019-12-20] MEDS: ACETAMINOPHEN 500 MG TABLET PO SCH (17:22)
[2019-12-21] MEDS: ACETAMINOPHEN 500 MG TABLET PO SCH ×2 (00:26→09:12)
[2019-12-21] MEDS: IBUPROFEN 600 MG TABLET PO SCH ×2 (00:27→09:12)
--- NOTE | 2019-12-21 07:39 | Discharge Plan ---
Discharge Plan Problem Reviewed?: Yes Disposition: Home, Self Care Condition: Good Diet: Regular No Smoking: If you smoke, Please STOP! Call for help. Follow-up with: Bean Leon MD [Provider Admit Priv/Credential] - 2 Weeks
[2019-12-21 08:13] VITALS: BP 128/78
[2019-12-21] MEDS: NICOTINE 14 MG PATCH TOP SCH (09:11)
[2019-12-21] MEDS: DOCUSATE SODIUM 100 MG CAPSULE PO SCH (09:12)
--- NOTE | 2019-12-21 09:54 | Labor Flowsheet ---
Labor Flowsheet Datetime Report Generated by CPN: 12/21/2019 09:54 Datetime: 12/21/2019 07:59 VITAL SIGNS NBP Sys/Teodora/Mean (mmHg): 128 : 78 : 87 Pulse: 75 Datetime: 12/20/2019 16:05 SpO2 (%): 97 Datetime: 12/20/2019 00:31 PAIN Pain Scale: 0 Datetime: 12/19/2019 23:31 Stage of : Recovery Datetime: 12/19/2019 23:01 Temperature (C): 36.6 Temperature Route: Oral Datetime: 12/19/2019 22:46 Anesthesia Comments: epidural pump stopped Datetime: 12/19/2019 22:31 Anesthesia Level Check: T10- Umbilicus Datetime: 12/19/2019 22:28 Membranes Ruptured Date/Time: 12/19/2019 10:10 Datetime: 12/19/2019 22:27 Stage 2 Comments: Datetime: 12/19/2019 22:24 ASSESSMENT A Monitor Mode: External US FHR Baseline Rate : 130 Variability: Moderate 6-25 bpm Decelerations: Variable Category: Category II Pushing Progress: with Pushing Datetime: 12/19/2019 22:17 UTERINE ACTIVITY Monitor Mode: External Frequency (min): 2 Quality: Strong Comments: pushing, good descent Pushing Position: Pushing with Contractions Datetime: 12/19/2019 22:16 LaborFlag: Labor Datetime: 12/19/2019 22:11 Patient Care Comments: pusjing started again Datetime: 12/19/2019 22:10 VAGINAL EXAM Dilatation (cm): 10.0 Effacement (%): 100 Station: 1 Exam by: DrYaron Leon STAGE 2 Pushing: Coached on Pushing Datetime: 12/19/2019 22:01 Duration (sec): 60-90 Pattern: Normal: <= 5 Contractions in 10 Minutes Resting Tone (Palpate): Relaxed Accelerations: None Pain Presence: None/Denies Patient Position/Activity: Left Tilt Datetime: 12/19/2019 21:46 Monitor Interventions for UA: [place] Adjusted Datetime: 12/19/2019 21:45 Vaginal Exam Comments: slight ant lip remains, plan to stop pushing for 30 min and recheck. Datetime: 12/19/2019 21:38 MEDICATIONS Pitocin (milliunits): Started @ 2 Medication Comments: per Dr. Giem, pt pushing Datetime: 12/19/2019 21:25 I/O Interventions: Rasheed Discontinued Datetime: 12/19/2019 21:23 COMMUNICATION Communication: Provider at Bedside Communication Comments: dr. Giem present on unit Datetime: 12/19/2019 21:12 Vaginal Bleeding: Normal Show Cervix, Consistency: Soft Cervix, Position: Anterior Provider Reviewed Strip: No Provider Notified (Name): Dr. Giem Datetime: 12/19/2019 21:05 Monitor Interventions for FHR: Ultrasound Adjusted Datetime: 12/19/2019 20:52 Pain Type: Pressure Datetime: 12/19/2019 19:47 Pain Location: Perineum MATERNAL ASSESSMENT Level of Consciousness: Alert Headache: Denies Breath Sounds, Left: Clear and Equal Breath Sounds, Right: Clear and Equal Nausea/Vomiting: Denies RUQ Epigastric Pain: Denies Datetime: 12/19/2019 19:30 Oxygen Method: Room Air Datetime: 12/19/2019 18:57 Notification Reason: Labor Status Datetime: 12/19/2019 18:22 Respirations: 16 Datetime: 12/19/2019 17:52 Epidural Procedure Other: Single Dose Datetime: 12/19/2019 17:17 Pain Coping: Breathing Through Contractions Pain Assessment Comments: right side abd pain. pushed epidural button but no relief. sheulfelt TOBACCO WEIGHER will be notified Datetime: 12/19/2019 16:30 Contraction Comments: coupling noted Datetime: 12/19/2019 13:59 Hygiene: Underpad Changed Datetime: 12/19/2019 12:23 PATIENT CARE IV/Blood Work: IV Bolus Given ml @ 500; IV Infusing per Order Datetime: 12/19/2019 12:04 Epidural Procedure: Completed Datetime: 12/19/2019 11:48 Epidural Positioning: Sitting Datetime: 12/19/2019 11:45 PROCEDURE TIME OUT Procedure Verify: Correct Patient Identity; Correct Side and Site are Marked; Accurate Procedure Co nsent Form; Agreement on Procedure to be Done; Correct Patient Position; Addressed Need to Administer Antibiotics or Fluids for Irrigation; Safety Precautions Based on Patient History or Medication Use ANESTHESIA Anesthesia Plans: Epidural Datetime: 12/19/2019 10:11 Membrane Status: Ruptured Membranes Rupture Method: Spontaneous Amniotic Fluid Color: Light Meconium Amniotic Fluid Amount: Moderate Membrane Comments: pt standing in room when ruptured Datetime: 12/19/2019 10:03 Pitocin Checklist: At Least 1 Acceleration of 15 bpm x 15 Seconds in 30 Minutes or Adequate Variabi lity; No More than 1 Late Deceleration Occurred in Past 30 Minutes; No More than 2 Variable Decelerat ions > 60 Seconds in Duration and decreasing >60 bpm in 30 minutes; No More than 5 Uterine Contractio ns in 10 Minutes for any 20 Minute Interval; Uterus Palpates Soft between Contractions
== END 2019-12-21 09:30 | disposition home or self-care (01) | DRG 806 ==
LOC: WFO 08:09 → FBP 08:13 → WFO 09:29 → FBP 09:30
PROVIDERS: ADMIT Obstetrics & Gynecology; ATTEND Obstetrics & Gynecology
PROC: 3E033VJ Introduction of Other Hormone into Peripheral Vein, Percutaneous Approach (ICD-10-PCS; principal; 2019-12-19)
PROC: 10E0XZZ Delivery of Products of Conception, External Approach (ICD-10-PCS; 2019-12-19)
PROC: 0HQ9XZZ Repair Perineum Skin, External Approach (ICD-10-PCS; 2019-12-19)
PROC: 0UQMXZZ Repair Vulva, External Approach (ICD-10-PCS; 2019-12-19)
DX: O70.0 First degree perineal laceration during delivery (principal); D62 Acute posthemorrhagic anemia; Z37.0 Single live birth; O71.82 Other specified trauma to perineum and vulva; O69.82X0 Labor and delivery complicated by other cord entanglement, without compression, not applicable or unspecified; O77.0 Labor and delivery complicated by meconium in amniotic fluid; O99.334 Smoking (tobacco) complicating childbirth; F17.200 Nicotine dependence, unspecified, uncomplicated; O99.02 Anemia complicating childbirth; D64.9 Anemia, unspecified; O90.81 Anemia of the puerperium; Z3A.40 40 weeks gestation of pregnancy; Z86.59 Personal history of other mental and behavioral disorders; Z87.59 Personal history of other complications of pregnancy, childbirth and the puerperium
CPT/HCPCS: 36415; 85025; 86850; 86900; 86901; 86920; A9270; J2916; J7120

== ENCOUNTER 2020-02-21 07:21 | Outpatient (CLI) | payer MEDICAID ==
[2020-02-21 07:48] LABS: BASOPHILS # (AUTO) 0.1 10^3/uL (0.0-0.1); BASOPHILS % (AUTO) 0.7 %; EOSINOPHILS # (AUTO) 0.1 10^3/uL (0.0-0.7); EOSINOPHILS % (AUTO) 1.7 %; HGB - HEMOGLOBIN 12.3 g/dL (12.0-16.0); LYMPHOCYTES # (AUTO) 2.1 10^3/uL (1.5-3.5); LYMPHOCYTES % (AUTO) 24.8 %; MEAN CORPUSCULAR HEMOGLOBIN 33.3 pg (27.0-31.0); MEAN CORPUSCULAR HGB CONC 34.2 g/dL (32.0-36.0); MEAN CORPUSCULAR VOLUME 97.6 fL (81.0-99.0); MEAN PLATELET VOLUME 8.5 fL (7.9-10.8); MONOCYTES # (AUTO) 0.7 10^3/uL (0.0-1.0); MONOCYTES % (AUTO) 8.9 %; NEUTROPHILS # (AUTO) 5.3 10^3/uL (1.5-6.6); NEUTROPHILS % (AUTO) 63.7 %; PLT - PLATELET COUNT 281 10^3/uL (130-450); RED BLOOD COUNT 3.69 10^6/uL (4.20-5.40); RED CELL DISTRIBUTION WIDTH 12.1 % (12.0-15.0); WHITE BLOOD COUNT 8.3 x10^3/uL (4.8-10.8)
== END 2020-02-21 07:22 | disposition home or self-care (01) ==
LOC: LAB 07:21
PROVIDERS: ATTEND Obstetrics & Gynecology
DX: Z01.812 Encounter for preprocedural laboratory examination (principal); Z20.828 Contact with and (suspected) exposure to other viral communicable diseases; Z30.2 Encounter for sterilization
CPT/HCPCS: 36415; 85025

== ENCOUNTER 2020-02-26 08:33 | Day surgery (SDC) | payer MEDICAID ==
[2020-02-26] MEDS ORDERED: LACTATED RINGERS 1,000 ML IV ONE ×2 (08:45→12:54)
[2020-02-26 08:54] LABS: HCG UR QUAL NEGATIVE
--- NOTE | 2020-02-26 09:31 | ANESTHESIA ---
Pre-Anesthesia VS, & Labs - Diagnosis desires sterilization - Procedure Bilateral laparoscopic salpingectomy Vital Signs: Temp Pulse Resp BP Pulse Ox 36.2 C L 73 18 120/70 99 02/26/20 08:52 02/26/20 08:52 02/26/20 08:52 02/26/20 08:52 02/26/20 08:52 Height: 5 ft 1 in Weight (kg): 50.7 kg Body Mass Index: 21.1 BMI Classification: Healthy weight - NPO >8 hours - Is Patient ?: No - Lab Results Lab results reviewed: Yes Home Medications and Allergies Home Medications: Ambulatory Orders Acetaminophen [Tylenol] 650 mg PO Q6H PRN 02/19/20 Sertraline HCl 50 mg PO DAILY 02/19/20 Acetaminophen [Tylenol] 650 mg PO Q6H PRN 02/19/20 Sertraline HCl 50 mg PO DAILY 02/19/20 Allergies/Adverse Reactions: Allergies Allergy/AdvReac Type Severity Reaction Status Date / Time No Known Drug Allergies Allergy Verified 12/07/19 08:15 Anes History & Medical History - Anesthetic History Anesthesia Complications: reports: No previous complications Family history of Anesthesia Complications: Denies Family history of Malignant Hyperthermia: Denies - Medical History Cardiovascular: reports: None Pulmonary: reports: Asthma Gastrointestinal: reports: None Urinary: reports: None Neuro: reports: None Musculoskeletal: reports: None Endocrine/Autoimmune: reports: None Skin: reports: None Smoking Status: Current every day smoker Psychosocial: reports: No issues indicated History of Cancer?: No - Surgical History General: Appendectomy Exam General: Alert, Oriented x3, Cooperative Dental: WNL Mouth Openin Fingerbreadth Neck Mobility: Normal Mallampati classification: I Thyromental Distance: greater than 6 cm Respiratory: Lungs clear, Normal breath sounds, No respiratory distress, No accessory muscle use Cardiovascular: Regular rate Neurological: Normal speech Mental/Cognitive Status: Alert/Oriented X3, Normal for patient Cognitive Status: Within normal limits Plan Anesthesia Type: General Consent for Procedure(s) Verified and Reviewed: Yes Code Status: Attempt Resuscitation ASA classification: 2-Mild systemic disease Is this case an emergency?: No
[2020-02-26] MEDS ORDERED: BUPIVACAINE 0.25%-EPI 1:200000 PF 30 ML VIAL ONE (10:33)
[2020-02-26 10:41] LABS: BASOPHILS # (AUTO) 0.1 10^3/uL (0.0-0.1); BASOPHILS % (AUTO) 0.6 %; EOSINOPHILS # (AUTO) 0.1 10^3/uL (0.0-0.7); EOSINOPHILS % (AUTO) 1.1 %; HGB - HEMOGLOBIN 11.1 g/dL (12.0-16.0); LYMPHOCYTES # (AUTO) 1.8 10^3/uL (1.5-3.5); LYMPHOCYTES % (AUTO) 21.5 %; MEAN CORPUSCULAR HEMOGLOBIN 32.6 pg (27.0-31.0); MEAN CORPUSCULAR HGB CONC 33.6 g/dL (32.0-36.0); MEAN CORPUSCULAR VOLUME 96.8 fL (81.0-99.0); MEAN PLATELET VOLUME 8.6 fL (7.9-10.8); MONOCYTES # (AUTO) 0.9 10^3/uL (0.0-1.0); MONOCYTES % (AUTO) 11.1 %; NEUTROPHILS # (AUTO) 5.5 10^3/uL (1.5-6.6); NEUTROPHILS % (AUTO) 65.5 %; PLT - PLATELET COUNT 232 10^3/uL (130-450); RED BLOOD COUNT 3.41 10^6/uL (4.20-5.40); RED CELL DISTRIBUTION WIDTH 12.1 % (12.0-15.0); WHITE BLOOD COUNT 8.4 x10^3/uL (4.8-10.8)
[2020-02-26] MEDS ORDERED: ACETAMINOPHEN 1,000 MG/100 ML 100 ML IV ONE (10:43)
[2020-02-26] MEDS ORDERED: CELECOXIB 100 MG CAPSULE PO ONE (10:43)
[2020-02-26] MEDS ORDERED: GABAPENTIN 400 MG CAPSULE ONE (10:43)
[2020-02-26] MEDS ORDERED: CEFAZOLIN SODIUM IN 0.9 % NACL 2 GM/100 ML BAG IV ONE (10:46)
[2020-02-26] MEDS ORDERED: MORPHINE 2 MG/ML CARPUJECT IVP PRN (11:17)
[2020-02-26] MEDS ORDERED: NALOXONE 0.4 MG/ML VIAL IVP PRN (11:17)
[2020-02-26] MEDS ORDERED: HYDROmorphone 0.5 MG/0.5 ML SYRINGE IVP PRN (11:17)
[2020-02-26] MEDS ORDERED: ATROPINE ABBOJECT 1 MG/10 ML SYRINGE IVP PRN (11:17)
[2020-02-26] MEDS ORDERED: fentaNYL 100 MCG/2 ML VIAL IVP PRN (11:17)
[2020-02-26] MEDS ORDERED: ONDANSETRON 4 MG/2 ML VIAL IVP PRN (11:17)
[2020-02-26] MEDS ORDERED: LACTATED RINGERS 1,000 ML IV SCH (12:00)
[2020-02-26] MEDS ORDERED: BUPIVACAINE 0.25%-EPI 1:200000 PF 30 ML VIAL SUBQ ONE ×2 (12:12)
--- NOTE | 2020-02-26 13:08 | OPERATIVE REPORT ---
Operative Report - General Procedure Date: 02/26/20 Planned Procedure: Bilateral salpingectomy Pre-Op Diagnosis: Desires sterilization Procedure Performed: Laparoscopic bilateral salpingectomy and removal of foreign body Post Op Diagnosis: Same and incidental finding of surgical clip embedded in cul de sac - Procedure Note Primary Surgeon: Ashish Douglas MD Secondary Surgeon: Zayra Leon MD Anesthesia Provider: Saravanan Rowan CRNA and Chinmay Pak CRNA Anesthesia Technique: General ET tube Pathology: Bilateral tubal segments IV Fluids (mL): 1,100 (See Anesthesia record) Estimated Blood Loss (mL): 5 Urine Output (mL): 25 Indications: Patient is a 24 yo with undesired fertility here for bilateral salpingectomy. She has failed reversible contraception methods and is confident that she has completed her childbearing. She has been counselled extensively regarding the irreversible nature of the procedure and patient is adamant that she wants to proceed with the sterilization. Findings: Normal appearing uterus, tubes, and ovaries. Area suspicious for endometriosis. Normal liver edge and gallbladder. Appendix is surgically absent. Surgical c lip/staple embedded in the cul de sac. Bilateral ureteral vermiculation noted. Complications: None - Other Other Information/Narrative: Risks benefits and alternatives of the procedure were reviewed. Consent was again confirmed. Patient was brought to the operating room and underwent general anesthesia. She was placed in dorsal lithotomy position with legs resting in yellowfin stirrups. SCDs were in place and activated. Cefazolin 2 g IV was administered prior to start of procedure. She was prepped and draped in the usual sterile fashion. Surgical timeout was performed. Bimanual exam was performed. Sterile speculum was placed and Humi uterine manipulator was placed. The base of the umbilicus was anesthetized with intradermal injection of 0.25% Marcaine. A 5 mm skin incision was made with a scalpel. A 5 mm blunt trocar was inserted under direct visualization using Visiport. Once the port was confirmed to be placed intraperitoneally, the abdomen was insufflated to 15 mmHg with CO2 gas Exploration of the abdomen and pelvis was confirmed that no injury was sustained with placement of the trocar. Two additional 5 mm ports were placed in the right and left lower quadrants, taking care to avoid the epigastric arteries, while under direct visualization via laparoscopic guidance. The abdomen was explored with the laparoscope, with findings as noted. The right Fallopian tube was grasped and elevated and resected from the underlying mesosalpinx with the LigaSure bipolar sealing and cutting device. It was trasnsected at the insertion point in the cornua using the Ligasure device. It was removed from the field through the surgical port. The procedure was repeated in the left side. Good hemostasis was noted. Exploration of the cul de sac revealed a surgical slip/staple embedded in the peritoneum. It was bluntly dissected form the peritoneum and removed form the fild. Good hemostasis was noted. The abdomen was partially desufflated. Pedicles were observed under decreased pressure and good hemostasis was again confirmed. All instruments were removed from the abdomen. Skin was closed with interrupted subcuticular stitches using 4-0 Monocryl. Dermabond was applied over the suture sites. All instruments were removed from the vagina. The final sponge needle and instrument counts were correct at completion of the procedure patient was awakened taken to the postanesthesia care unit in stable condition.
[2020-02-26 14:20] VITALS: BP 116/66
--- NOTE | 2020-02-26 14:44 | ANESTHESIA POST OP EVALUATION ---
Anesthesia Post Eval - Post Anesthesia Eval Vitals: Last Vital Signs Temp 36.5 C 02/26/20 14:20 Pulse 63 02/26/20 14:20 Resp 14 02/26/20 14:20 BP 116/66 02/26/20 14:20 Pulse Ox 97 02/26/20 14:20 CV Function Including HR & BP: positive: Stable Pain Control: positive: Satisfactory Nausea & Vomiting: positive: Negative Mental Status: positive: Baseline Respiratory Status: Airway Patent Hydration Status: Satisfactory Anesthesia Complications: positive: None
== END 2020-02-26 08:34 | disposition home or self-care (01) ==
LOC: SDS 08:33
PROVIDERS: ATTEND Obstetrics & Gynecology
PROC: 0UT74ZZ Resection of Bilateral Fallopian Tubes, Percutaneous Endoscopic Approach (ICD-10-PCS; principal; 2020-02-26 09:30)
DX: Z30.2 Encounter for sterilization (principal); T81.500A Unspecified complication of foreign body accidentally left in body following surgical operation, initial encounter; F32.9 Major depressive disorder, single episode, unspecified; F17.210 Nicotine dependence, cigarettes, uncomplicated
CPT/HCPCS: 36415; 58661; 81025; 85025; A9270; J0131; J0690; J7120

== ENCOUNTER 2023-02-03 19:09 | Emergency (ER) | payer MEDICAID ==
[2023-02-03 19:33] VITALS: BP 139/76; O2SAT 99
[2023-02-03] MEDS ORDERED: HYDROcod/ACETAM 5/325 MG TABLET PO STA (19:38)
--- NOTE | 2023-02-03 19:39 | ED Physician Documentation ---
History of Present Illness - Stated complaint Stated Complaint: LT TOE INJ - Chief complaint Chief Complaint: Trauma Ext - Additonal information Additional information: 27-year-old female here for acute left foot pain sustained when she stubbed her toe on the metal supports for her bed frame. She has pain and ecchymosis just proximal to the MTP joint of the great toe. No his previous injury. No open sores or lesions. 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 : None HEENT: None Psych: Depression Musculoskeletal: None Derm: None - Past Surgical History Past Surgical History: Yes General: Appendectomy - Present Medications Home Medications: Ambulatory Orders Medication Instructions Recorded Confirmed HYDROcod/ACETAM 5/325 [[place] 5/325] 1 tablet PO BID PRN #10 tablet 02/03/23 - Allergies Allergies/Adverse Reactions: Allergies Allergy/AdvReac Type Severity Reaction Status Date / Time No Known Drug Allergies Allergy Verified 02/03/23 19:24 - Social History Does the pt smoke?: Yes Smoking Status: Current every day smoker Does the pt drink ETOH?: No Does the pt have substance abuse?: No - Immunizations Immunizations are current?: Yes - POLST Patient has POLST: No PD ED PE EXPANDED - Extremities Extremities: Left foot (Bruising just proximal to the MTP joint dorsum of foot. Tenderness over this region. No deformity. Neurovascular intact distally. 2+ DP pulsel) Results - Vitals Vitals: Vital Signs - 24 hr 02/03/23 19:18 Temperature 37.3 C Heart Rate 87 Respiratory 15 Rate Blood Pressure 139/76 H O2 Saturation 99 Oxygen O2 Source Room air - Rads (name of study) left foot Relevant Findings:: EMP independent interpretation of test (Nondisplaced fracture of the distal metatarsal. No intra-articular joint involvement.) PD Medical Decision Making - ED course Complexity details: reviewed results, re-evaluated patient, d/w patient ED course: 27-year-old female presents emergency department for evaluation of acute left foot pain sustained when she stubbed her toe on a metal bed frame. She has ecchymosis and mild swelling just proximal to the great toe MTP joint. My interpretation of the x-ray is that there is a nondisplaced distal metatarsal fracture. Patient was placed in a postop shoe and given crutches. Limited prescription [place] sent to [facility]. Advise follow-up with PCP for referral to Ortho or podiatry. Otherwise usual emergent return precautions were discussed. I am prescribing a short course of short-acting opioid pain medication for this patient. I have reviewed the patients SECRETARY TO THE VICE PRESIDENT and no concerning findings were noted. I have discussed that the opioids are for short term therapy only, and will not be refilled from the ED. Departure - Departure Disposition: 01 Home, Self Care Clinical Impression: Metatarsal bone fracture Qualifiers: Encounter type: initial encounter Metatarsal bone: first Fracture type: closed Fracture alignment: nondisplaced Laterality: left Qualified Code(s): S92.315A - Nondisplaced fracture of first metatarsal bone, left foot, initial encounter for closed fracture Condition: Stable Record reviewed to determine appropriate education?: Yes Instructions: ED Fx Foot Prescriptions: HYDROcod/ACETAM 5/325 [[place] 5/325] 1 tablet PO BID PRN #10 tablet PRN Reason: Pain Comments: The x-ray of your foot shows a nondisplaced distal first metatarsal fracture. This is something that would likely heal simply with time but I would recommend using the postop shoe when out of bed for now. Use crutches for the next several weeks to make sure not putting pressure on this fracture. Please obtain referral to orthopedics or podiatry for longer-term evaluation and management. However I suspect that in the long-term this will simply be allowed to heal with time. In general ice the foot for 10 minutes 2-3 times a day. You can take Tylenol and ibuprofen [id number] for discomfort. For more severe pain a limited amount of [place] has been sent to the [facility]. I am prescribing a short course of narcotic pain medication for you. These are potentially dangerous and addictive medications that should be used carefully. These medications may constipate you. Take an [id number] stool softener (docusate) twice daily with plenty of water while taking these medications. If you go 24 hours without a bowel movement, take [id number] miralax, per package instructions. Do not drink or drive while taking these medications. If you received narcotic or sedating medications while in the emergency department, do not drive for 24 hours. Store this medication in a safe, secure place and out of reach of children. It is a violation of federal law to give or sell this medication to another person or to use in a manner other than prescribed. The ED will not refill narcotic prescriptions, including prescriptions lost or stolen. To dispose of unwanted medications: 1. [facility] [address] in [place] has a medication drop box. They accept prescription medications (in pill form) Monday through Monday 9:00 a.m. to 5:00 p.m. 2. The [facility] accepts prescription medications (in pill form only) for disposal year round. Call for more information. 3. Contact the [facility] for the next [facility] sponsored prescription drug collection event. , [phone], or [phone]; Note that many narcotic pain relievers also contain Tylenol/acetaminophen. Please ensure that your total dose of acetaminophen from all sources does not exceed 3 g (3000 mg) per day.
--- NOTE | 2023-02-03 20:36 | XRAY Report ---
PROCEDURE: Foot 3 View LT INDICATIONS: Trauma TECHNIQUE: 3 views of the foot were acquired. COMPARISON: None. FINDINGS: Bones: No fractures or dislocations. No suspicious bony lesions. Soft tissues: No suspicious soft tissue calcifications or masses. IMPRESSION: No acute bony abnormality. Reviewed by: Mc Licona on 02/03/2023 8:34 PM PDT Approved by: Mc Licona on 02/03/2023 8:34 PM PDT Station ID: [id number]
== END 2023-02-03 20:23 | disposition home or self-care (01) ==
LOC: ED 19:09
DX: S92.315A Nondisplaced fracture of first metatarsal bone, left foot, initial encounter for closed fracture (principal); W22.8XXA Striking against or struck by other objects, initial encounter; F17.200 Nicotine dependence, unspecified, uncomplicated
CPT/HCPCS: 73630; 99283; 99284; A9270

== ENCOUNTER 2023-03-07 08:00 | Outpatient (CLI) | payer MEDICAID ==
--- NOTE | 2023-03-07 18:46 | XRAY Report ---
PROCEDURE: Foot 3 View LT INDICATIONS: LEFT FOOT PAIN TECHNIQUE: 3 views of the foot were obtained. COMPARISON: None FINDINGS: Bones: No fractures or dislocations. No suspicious bony lesions. Soft tissues: Unremarkable. No radiopaque foreign body. IMPRESSION: Normal foot radiographs Reviewed by: Adriel Rangel MD on 03/07/2023 5:44 PM AKDT Approved by: Adriel Rangel MD on 03/07/2023 5:44 PM AKDT Station ID: [id number]
== END 2023-03-07 08:01 | disposition home or self-care (01) ==
LOC: DI.WOS 08:00
PROVIDERS: ATTEND Physician Assistant Surgical
DX: M79.675 Pain in left toe(s) (principal)